=== PATIENT | female | born 1960 | race African-American/Black ===

== ENCOUNTER → 2016-11-04 | Outpatient (CLI) | payer MEDICARE ==
[2015-11-29 15:40] VITALS: BP 101/58
[~2016-11-04] MED LIST: AMIT25TA PO; AMLO10TA2 PO; AMLO10TA4 PO; ATOR20TA58 PO; BUPIVACAINE MPF 0.25% 10 ML VIAL. ONE; CA C1TAB63 PO; CHOL500021 PO; DIPH25CA58 PO; EPIN0.3A4 IJ; ESOM20CA PO; ESTR2TAB PO; GABA-586 PO; GABA-587 PO; HYDR-2666 PO; HYDR50TA PO; LIDO700A4 TP; METH750T2 PO; METO25TA9 PO; OLME40TA PO; OMEP20CA9 PO; OXYC-323 PO; PIRO20CA2 PO; RANI75TA95 PO; SUCR1TAB29 PO; TRAM50TA PO; [UNRECOGNIZED DRUG - REMARK]; methylPREDNISolone ACETATE 40 MG/ML VIAL. ONE
--- NOTE | 2016-11-04 13:33 | PAIN ---
DATE OF SERVICE: 11/04/2016 PROGRESS NOTE FOR PAIN CLINIC DIAGNOSES: 1. Lumbar radiculopathy with post-lumbar laminectomy syndrome. 2. Myofascial pain. HISTORY OF PRESENT ILLNESS: The patient is a 56-year-old female who returns for followup status post spinal cord stimulator placement over a year ago. The patient was last seen in 11/2015. We did a revision on her stimulator generator pocket, which she was doing very well with that, still reports she is getting good stimulation in the low back and legs from the stimulator, but the pain in the pocket, now it is becoming more noticeable and the generator is becoming more mobile. Her chief complaint is that is stinging and poking in the low back and also some significant pain in the bilateral lower back with all activity, standing and walking, change in positions has very tight, very firm, very spastic in her low back. The patient is a burning, aching sensation, rates as 6 on a scale of 10. The patient has lost another 14 pounds since we have seen her last and feels that this is contributing to the mobility pocket. The patient reports the pain is burning and aching in the low back; however, better with some massage therapy that her has been helping her with, but the pain returns, fairly quickly. She has had no formal therapy at this time. She has been doing some stretching, strengthening on her own. The patient's past medical history was reviewed as was her current medication list and updated. PHYSICAL EXAMINATION: VITAL SIGNS: The patient's blood pressure 128/86, pulse 74, respirations 20, temperature 97.4 degrees Fahrenheit, height is 5 feet 5 inches, and weighs 197 pounds. GENERAL: The patient is awake, alert, oriented, appropriate, very pleasant demeanor. HEENT: Head shows normocephalic, atraumatic. Extraocular movements are intact and symmetrical. Oral cavity shows mucous membranes moist and pink. Dentition is intact. NECK: Shows anterior throat supple without palpable lymphadenopathy noted. Swallow reflex is symmetrical. Neck shows full rotation of motion of the cervical spine without difficulty or tenderness. CHEST: Shows normal on inspection. Breath sounds clear to auscultation bilaterally. HEART: Shows S1 and S2 clear. ABDOMEN: Soft, nontender, nondistended. No palpable organomegaly is noted. No rebound or guarding demonstrated. BACK: The patient's back shows spine grossly midline. Normal appearing thoracic kyphosis and lumbar lordotic curvature is slightly flattened and a well-healed surgical scar is noted in the lumbar distribution as well as over the right posterior gluteus, the musculature in the lumbar distribution is very tender throughout the upper, middle and lower distribution, very firm, very hard and indurated with palpation, although appears roughly symmetrical on inspection, is very tender with multiple areas of very firm rope-like musculature throughout the upper, middle and lower distribution of paraspinous muscles, also in the superior medial aspect of the gluteus very tender, more on the left than the right with rope-like musculature consistent with trigger point muscles in this region as well, very painful with palpation, but without specific radiation. The patient shows some limited rotation of motion in the low back secondary to pain and spasticity, also with flexion and extension somewhat limited as well secondary to pain in the musculature themselves. EXTREMITIES: Lower extremities showed deep tendon reflexes 1+ in the patellar and tendo calcaneus tendons are equal. Motor exam remains strong with dorsiflexion, extension, quadriceps and hamstring flexion is 5/5 and equal. Peripheral pulses are 2+ in the posterior tibial and dorsalis pedis pulses. No peripheral edema is noted. No clubbing, no cyanosis. Lower extremities are warm and dry to touch, equal in color and appearance. PLAN: 1. Options were discussed with the patient. The patient's old chart was reviewed as her current medication regimen updated. Current review of systems updated today as well. We will schedule patient for revision of her spinal cord stimulator generator pocket as it is quite mobile with palpation over this area and somewhat tender with moving the stimulator with sitting position as opposed to standing with some increased mobility, again secondary to her recent weight loss. 2. Discussed myofascial injections at the trigger point musculature in the bilateral lumbar paraspinous musculature throughout the upper, middle and lower distribution as well as the bilateral superior medial gluteus musculature as identified. The patient would like to proceed with this. Risks were discussed including but not limited to bleeding, infection, possibility of intravascular injection sequelae, spread of local anesthetic and numbness, side effects of steroid medication as well as poor results regarding pain control. The patient understands and wishes to proceed. The patient will be scheduled for revision of the spinal cord stimulator battery in the next few weeks. We will also send the patient for physical therapy for myofascial treatment of the lumbar spine and paraspinous musculature as well as the gluteus musculature with therapy as well as ultrasound, stretching and strengthening exercises and trigger point massage. This will be referred to local with physical therapy office that she has attended before near her home, near [place]. DIAGNOSES: Lumbar radiculopathy with post-lumbar laminectomy syndrome and myofascial pain. PROCEDURE: Trigger point injections, bilateral lumbar paraspinous musculature and bilateral gluteus musculature. Medications injected are 40 mg total Depo-Medrol, a total of 10 mL of 0.25% bupivacaine with negative aspiration with each injection site. Condition at discharge is stable. The patient tolerated procedure well, had no complications. TROY TERAN MD DR: IVETT/christine JOB#: [id number] / [id number]
== END ==
LOC: PNCL 09:23
PROVIDERS: ATTEND Anesthesiology
DX: M54.16 Radiculopathy, lumbar region (principal); M96.1 Postlaminectomy syndrome, not elsewhere classified; I10 Essential (primary) hypertension; E78.00 Pure hypercholesterolemia, unspecified; K63.5 Polyp of colon; H26.9 Unspecified cataract; F17.200 Nicotine dependence, unspecified, uncomplicated; M19.90 Unspecified osteoarthritis, unspecified site; Z72.89 Other problems related to lifestyle; Z90.710 Acquired absence of both cervix and uterus; Z98.51 Tubal ligation status
CPT/HCPCS: 20553; J1030; J3490

== ENCOUNTER 2016-11-27 10:55 | Day surgery (SDC) | payer MEDICARE ==
[~2016-11-27] VITALS: Ht 170.2 cm; Wt 89.4 kg
[~2016-11-27 10:55] MED LIST changes: +AMOX1TAB11 PO; +BACITRACIN 50,000 UNIT in IV NORMAL SALINE 500ML BAG 500 ML IRR ONE; +BACL10TA PO; -BUPIVACAINE MPF 0.25% 10 ML VIAL. ONE; +CLINDAMYCIN 600MG PREMIX 50 ML IV PRN; +DULO60CA6 PO; +FENTANYL PF 100 MCG/2 ML VIAL. IV PRN; +HYDROMORPHONE 2 MG/ML VIAL. IV PRN; +IV RINGERS,LACTATED 1000ML 1,000 ML IV SCH; +LIDOCAINE 1% 1 ML SYRINGE. ID PRN; +MELO-150 PO; +ONDA4TAB12 PO; +ONDANSETRON PF 4 MG/2 ML VIAL. IV PRN; +PROCHLORPERAZINE 10 MG/2 ML VIAL. IV PRN; -methylPREDNISolone ACETATE 40 MG/ML VIAL. ONE
[2016-11-27] MEDS ORDERED: LIDOCAINE 2% 100 MG/5 ML DISP.SYRIN. ONE (12:00)
[2016-11-27] MEDS ORDERED: PROPOFOL 20 ML IV ONE (12:00)
[2016-11-27] MEDS ORDERED: ONDANSETRON PF 4 MG/2 ML VIAL. ONE (12:01)
[2016-11-27] MEDS ORDERED: DEXAMETHASONE SOD PHOS 20 MG/5 ML VIAL. ONE (12:01)
[2016-11-27] MEDS ORDERED: FENTANYL PF 100 MCG/2 ML VIAL. ONE (12:01)
[2016-11-27] MEDS ORDERED: LIDOCAINE 1%/EPI 1:100,000 20 ML VIAL. ONE ×2 (12:24→12:25)
[2016-11-27] MEDS ORDERED: IOHEXOL 300 MG/ML 100ML VIAL. ONE (12:25)
[2016-11-27] MEDS ORDERED: MIDAZOLAM HCL 2 MG/2 ML VIAL. ONE (12:27)
[2016-11-27] MEDS ORDERED: ROCURONIUM 50 MG/5 ML VIAL. ONE (12:40)
[2016-11-27] MEDS ORDERED: GLYCOPYRROLATE 1 MG/5 ML VIAL. ONE (13:11)
[2016-11-27] MEDS ORDERED: NEOSTIGMINE METHYLSULFATE 5 MG/5 ML SYRINGE. ONE (13:11)
--- NOTE | 2016-11-27 13:48 | DISCH ---
DISCHARGE INSTRUCTIONS Condition on Discharge Condition on Discharge: Stable Activity After Discharge Activity Instructions for Disc: Activity as tolerated, Avoid exertion Bathing Instructions: Shower-keep dressing dry Lifting Instructions after Dis: No heavy lifting Driving Instructions after Dis: Do not drive today Weight Bearing Status after Di: As tolerated Diet after Discharge Diet after Discharge: Regular Wound Incision Care Wound/Incision Care: Reinforce dressing PRN Contacting the DREarl after DC Call your doctor for: Concerns you may have TROY TERAN MD Nov 27, 2016 13:48
[2016-11-27] MEDS: FENTANYL PF 100 MCG/2 ML VIAL. IV PRN ×4 (14:17→15:11)
[2016-11-27] MEDS ORDERED: OXYCODONE/APAP 5/325 TABLET. PO ONE (14:45)
[2016-11-27 15:25] VITALS: BP 168/69
--- NOTE | 2016-11-28 16:01 | OP ---
DATE OF SURGERY: 11/27/2016 PREOPERATIVE DIAGNOSES: 1. Lumbar laminectomy syndrome with chronic lumbar radiculopathy. 2. Spinal cord stimulator with migration of generator. POSTOPERATIVE DIAGNOSES: 1. Lumbar laminectomy syndrome with chronic lumbar radiculopathy. 2. Spinal cord stimulator with migration of generator. PROCEDURE: Revision of spinal cord stimulator generator and generator pocket. ANESTHESIA: General endotracheal. BLOOD LOSS: 5 mL. COMPLICATIONS: None. DESCRIPTION OF PROCEDURE: The patient was consented for revision of spinal cord stimulator generator pocket with risks discussed including, but not limited to bleeding, infection, possibility of poor positioning after surgery of the spinal cord stimulator generator, also continued discomfort in the pocket area as well as poor results overall concerning pain control and possible damage to the stimulator and stimulator wires itself. The patient understands and agrees. The patient was consented and taken to OR suite #9. General endotracheal anesthesia was induced and the patient was then placed in a prone position with pressure points padded and breath sounds clear to auscultation bilaterally. The patient sterilely prepped and draped over the right gluteus and low back bilaterally in the usual fashion. Drains were placed in the usual fashion. After 3 minutes of drying time for the prep, the site of the right posterior gluteus at the site of the stimulator generator pocket was then identified and using 1% lidocaine with 1:200,000 epinephrine, a transverse infiltration was begun subcutaneously in a transverse fashion superior to the previous surgical scar at the site of the stimulator pocket approximately 3 cm cephalad. At this time, using a 15 blade scalpel, incision was made to the area of anesthetized skin and subcutaneous tissue dissected down to the pocket to expose the spinal cord stimulator generator using both blunt and dull dissection, being careful not to damage the stimulator or the associated stimulator wires. The pocket was easily opened and the generator was expressed without difficulty. Sutures holding the generator in the superior aspect of the generator were cut at this time and removed. The generator was completely expressed from the pocket. Pocket was then examined. It should be in very good condition with appropriate fibrinous formation within the pocket itself. The patient's pocket was then extended superiorly approximately 5 cm from the previous superior margin or roof of the pocket with using blunt and dull dissection again being careful not to damage the spinal cord stimulator or generator wires. At this time, the generator was placed back in the pocket to evaluate its position in the new more cephalad positioning and found to be in good alignment and good position and attitude of the stimulator generator in this new region. Stimulator was then expressed once again removed. Sutures were placed 0 silk in the superior aspects of the new superior aspect of the roof of the pocket and sutured in place with the tails remaining. These were placed through the stimulator generator mounting holes on the superior aspect of it. The stimulator was then examined and found to be without damage. The pocket was inspected. There was very minimal local hemorrhage that was controlled with blunt pressure and bipolar cautery at 2 spots only. The pocket was then reexamined, irrigated with bacitracin irrigation x 3, reexamined with no local hemorrhage identified. At this time, the stimulator was placed back in the pocket with the wires coiled up posterior to it and more distal from the skin of the patient exposing the product labeled surface or outside area of the stimulator facing the skin. At this time, the previously placed sutures at the superior aspect of the pocket newly created were then threaded through the stimulator mounting bracket holes and sutured in place without difficulty. At this time, the pocket was then examined in the inferior aspects, once again irrigated with bacitracin irrigation x 3 and reexamined without any local hemorrhage or other abnormalities noted and the lower edge of the new pocket was then sutured from the distal and proximal edges of the pocket were sutured together to form a new base of the pocket for the new stimulator placement and this was performed with 3-0 silk sutures across the inferior aspect of the new pocket region for the stimulator as it was repositioned superiorly. At this time, the pocket was then closed over the stimulator with subcutaneous interrupted sutures of 2-0 Vicryl in interrupted fashion to close the fascia and then the skin was closed with a running suture of 3-0 Vicryl. The patient tolerated the procedure well, had no complications. Sterile bandages were applied. Steri-Strips and Mastisol as well as island dressing. The patient was transferred to the recovery room awake and in stable condition. TROY TERAN MD DR: IVETT/christine JOB#: [id number] / [id number]
== END 2016-11-27 16:27 | disposition home or self-care (01) ==
LOC: SURG 10:55
PROVIDERS: ATTEND Anesthesiology
DX: Z45.42 Encounter for adjustment and management of neurostimulator (principal); M96.1 Postlaminectomy syndrome, not elsewhere classified; M54.16 Radiculopathy, lumbar region
CPT/HCPCS: 63688; C1769; J1100; J2250; J2405; J2704; J2710; J3010; J3490; J7040; Q9967

== ENCOUNTER 2016-12-07 20:20 | Emergency (ER) | payer MEDICARE ==
[~2016-12-07 20:20] MED LIST changes: -BACITRACIN 50,000 UNIT in IV NORMAL SALINE 500ML BAG 500 ML IRR ONE; -CLINDAMYCIN 600MG PREMIX 50 ML IV PRN; -FENTANYL PF 100 MCG/2 ML VIAL. IV PRN; -HYDROMORPHONE 2 MG/ML VIAL. IV PRN; -IV RINGERS,LACTATED 1000ML 1,000 ML IV SCH; -LIDOCAINE 1% 1 ML SYRINGE. ID PRN; -ONDANSETRON PF 4 MG/2 ML VIAL. IV PRN; -PROCHLORPERAZINE 10 MG/2 ML VIAL. IV PRN
[2016-12-07 21:55] LABS: BASO # 0.1 x10^3/uL (0.0-0.2); BASO % 1 % (0-3); EOS % 2 % (0-3); HEMATOCRIT 38.6 % (36.0-47.0); HEMOGLOBIN 12.8 g/dL (12.0-15.5); LYMPH # 2.1 x10^3/uL (1.0-4.8); LYMPH % 29 % (24-48); MEAN CORPUSCULAR HEMOGLOBIN 29 pg (25-35); MEAN CORPUSCULAR HGB CONC 33 g/dL (31-37); MEAN CORPUSCULAR VOLUME 89 fL (79-100); MONO % 7 % (0-9); NEUT % 62 % (31-73); PLATELET COUNT 217 x10^3/uL (140-400); RED BLOOD COUNT 4.35 x10^6/uL (3.50-5.40); RED CELL DISTRIBUTION WIDTH 14.8 % (11.5-14.5); WHITE BLOOD COUNT 7.3 x10^3/uL (4.0-11.0)
[2016-12-07 22:05] LABS: OBC FLU VALID
[2016-12-07 22:08] LABS: CALCIUM 8.7 mg/dL (8.5-10.1); GFR 69.9; POTASSIUM 4.1 mmol/L (3.5-5.1)
[2016-12-07 22:14] LABS: ALBUMIN 2.9 g/dL (3.4-5.0); DIRECT BILIRUBIN 0.1 mg/dL (0.0-0.2); MAGNESIUM 1.8 mg/dL (1.8-2.4); TOTAL BILIRUBIN 0.4 mg/dL (0.2-1.0)
[2016-12-07 22:23] LABS: CKMB INDEX 0.6 % (0-4); CKMB MASS < 0.5 ng/mL (0.0-3.6); CREATINE KINASE 77 U/L (26-192)
--- NOTE | 2016-12-07 22:31 | PHYS DOC ---
Past Medical History Past Medical History: High Cholesterol, Hypertension, Other Additional Past Medical Histor: chronic pain Past Surgical History: Hysterectomy, Tubal ligation, Other Additional Past Surgical Histo: Bilat arm/wrist surgery,R)knee,endometriosis,3 back surgeries. stimulator Additional Information: VAPOR Alcohol Use: Rarely Drug Use: None Adult General Chief Complaint Chief Complaint: COUGH HPI HPI Patient is a 56 year old female who presents with right-sided chest pain that began at 1900 tonight. She reports recent shortness of breath with a nonproductive cough that began yesterday. She's had subjective fever and chills with nasal congestion. She denies sore throat, ear pain, abdominal pain, or swelling of the lower extremities. She began sweating when the chest pain started, however has been having subjective fever and chills over the last 2 days. The patient completed a 10 day course of amoxicillin on 11/30/16 for an upper respiratory infection, prescribed by her PCP. She has a history of hypertension and hyperlipidemia. She denies history of diabetes or CAD. She has a family history of CAD and her father. She did not receive a flu shot this year. She denies any known sick contacts. Her PCP is Etelvina Garsia APRN. Review of Systems Review of Systems Constitutional: Reports subjective fever and chills. Eyes: Denies change in visual acuity, redness, or eye pain. [] HENT: Denies ear pain or sore throat. Reports nasal congestion. Respiratory: Reports nonproductive cough and shortness of breath. Cardiovascular: Denies palpitations or edema. Reports right-sided chest pain. GI: Denies abdominal pain, nausea, vomiting, bloody stools or diarrhea. [] : Denies dysuria, hematuria or urinary frequency. [] Musculoskeletal: Denies back pain or joint pain. [] Integument: Denies rash or skin lesions. [] Neurologic: Denies headache, focal weakness or sensory changes. [] Endocrine: Denies polyuria or polydipsia. [] Psych: Denies anxiety or depression. [] All systems reviewed and negative unless otherwise stated in the HPI. Allergies Allergies Allergies Coded Allergies Type Severity Reaction Last Updated Verified Cephalexin Monohydrate Allergy Intermediate Itching 11/27/16 Yes Sulfa (Sulfonamide Antibiotics) Allergy Intermediate 11/27/16 Yes azithromycin Allergy Intermediate Hives 11/27/16 Yes codeine Allergy Intermediate Hives 11/27/16 Yes morphine Allergy Intermediate Hives 11/27/16 Yes aspirin Adverse Reaction Intermediate Nausea 11/27/16 Yes Physical Exam Physical Exam Constitutional: Well developed, well nourished, no acute distress, non-toxic appearance. [] HENT: Normocephalic, atraumatic, bilateral external ears normal, oropharynx moist, no oral exudates, nose normal. Bilateral TMs without erythema or bulging. No posterior pharyngeal erythema or tonsillar edema. Eyes: PERRLA, EOMI, conjunctiva normal, no discharge. [] Neck: Normal range of motion, no tenderness, supple, no stridor. [] Cardiovascular: Heart rate regular rhythm, no murmur [] Lungs & Thorax: Bilateral breath sounds clear to auscultation without wheezes, rales, or rhonchi. There is tenderness to palpation over the right anterior chest wall without crepitus. Skin: Warm, dry, no erythema, no rash. [] Extremities: No calf tenderness, no cyanosis, no clubbing, ROM intact, no edema. 2+ DP pulses bilaterally. Neurologic: Alert and oriented X 3, normal motor function, normal sensory function, no focal deficits noted. [] Psychologic: Affect normal, judgement normal, mood normal. [] Current Patient Data Vital Signs Vital Signs Date Time Temp Pulse Resp B/P Pulse Ox O2 Delivery O2 Flow Rate FiO2 12/07/16 23:44 84 20 115/81 94 Room Air 12/07/16 20:50 97.5 97.5 Lab Values Laboratory Tests Test 12/07/16 21:38 12/07/16 21:40 Influenza Type A Antigen Negative (NEGATIVE) Influenza Type B Antigen Negative (NEGATIVE) White Blood Count 7.3x10^3/uL (4.0-11.0) Red Blood Count 4.35x10^6/uL (3.50-5.40) Hemoglobin 12.8g/dL (12.0-15.5) Hematocrit 38.6% (36.0-47.0) Mean Corpuscular Volume 89fL (79-100) Mean Corpuscular Hemoglobin 29pg (25-35) Mean Corpuscular Hemoglobin Concent 33g/dL (31-37) Red Cell Distribution Width 14.8% (11.5-14.5) H Platelet Count 217x10^3/uL (140-400) Neutrophils (%) (Auto) 62% (31-73) Lymphocytes (%) (Auto) 29% (24-48) Monocytes (%) (Auto) 7% (0-9) Eosinophils (%) (Auto) 2% (0-3) Basophils (%) (Auto) 1% (0-3) Neutrophils # (Auto) 4.5x10^3uL (1.8-7.7) Lymphocytes # (Auto) 2.1x10^3/uL (1.0-4.8) Monocytes # (Auto) 0.5x10^3/uL (0.0-1.1) Eosinophils # (Auto) 0.2x10^3/uL (0.0-0.7) Basophils # (Auto) 0.1x10^3/uL (0.0-0.2) Sodium Level 144mmol/L (136-145) Potassium Level 4.1mmol/L (3.5-5.1) Chloride Level 107mmol/L (98-107) Carbon Dioxide Level 27mmol/L (21-32) Anion Gap 10 (6-14) Blood Urea Nitrogen 11mg/dL (7-20) Creatinine 1.0mg/dL (0.6-1.0) Estimated GFR (Cockcroft-Gault) 69.9 Glucose Level 123mg/dL (70-99) H Calcium Level 8.7mg/dL (8.5-10.1) Magnesium Level 1.8mg/dL (1.8-2.4) Total Bilirubin 0.4mg/dL (0.2-1.0) Direct Bilirubin 0.1mg/dL (0.0-0.2) Aspartate Amino Transferase (AST) 13U/L (15-37) L Alanine Aminotransferase (ALT) 14U/L (14-59) Alkaline Phosphatase 119U/L (46-116) H Creatine Kinase 77U/L (26-192) Creatine Kinase MB (Mass) < 0.5ng/mL (0.0-3.6) Creatine Kinase MB Relative Index 0.6% (0-4) Troponin I Quantitative < 0.017ng/mL (0.000-0.055) UJ-Hgm-F-Type Natriuretic Peptide 47pg/mL (0-124) Total Protein 7.0g/dL (6.4-8.2) Albumin 2.9g/dL (3.4-5.0) L Laboratory Tests 12/07/16 21:40 Laboratory Tests 12/07/16 21:40 EKG EKG EKG at 2135. Heart rate 82 bpm. Sinus rhythm without acute ischemic changes or STEMI, as interpreted by Dr. Lundy. Radiology/Procedures Radiology/Procedures Portable chest x-ray reviewed and interpreted by myself with Dr. Lundy. There are no infiltrates. Course & Med Decision Making Course & Med Decision Making Pertinent Labs and Imaging studies reviewed. (See chart for details) Patient presents with right-sided chest pain with shortness of breath and upper respiratory symptoms. On exam, her lungs are clear without respiratory distress. There is chest wall tenderness in the area of her reported pain. EKG is nonischemic. Chest x-ray does not show any infiltrates. Troponin is negative. Influenza test is negative. There are no other significant laboratory abnormalities. I discussed the results with the patient and her significant other. Her symptoms appear to be related to her cough and upper respiratory symptoms, as opposed to cardiac in nature. She is discharged home in stable condition with prescription for prednisone and albuterol inhaler. Patient is instructed to follow-up with her PCP in the next 2-3 days, sooner if she has any concerns. Strict return precautions regarding chest pain were discussed with the patient. She verbalizes understanding and agrees with plan. Dragon Disclaimer Dragon Disclaimer This electronic medical record was generated, in whole or in part, using a voice recognition dictation system. Departure Departure Impression: Primary Impression: Atypical chest pain Additional Impression: Bronchitis Disposition: 01 HOME, SELF-CARE Condition: STABLE Referrals: ETELVINA GARSIA APRN (PCP) Patient Instructions: Acute Bronchitis, [id number], Chest Pain (Nonspecific) , [id number] Additional Instructions: You were seen today for cough, shortness breath, and chest pain. Your EKG was normal. Your chest x-ray does not show pneumonia. There were no concerning lab abnormalities. Please complete all the prescribed steroids. Please use the prescribed inhaler as needed for cough or shortness of breath. Do not use more often than directed. Please follow-up with your primary care provider in the next 2-3 days, sooner if concerns. Return to the emergency department if you have increase or change in your chest pain, shortness of breath, sweating with the pain, or other new or concerning symptoms. Scripts Albuterol Sulfate (Proair Hfa Inhaler)8.5 Gm Hfa.aer.ad1 Puff INH Q4HRS PRN SHORTNESS OF BREATH #1 INHALER Prov:JOSE ROBERTO GARCIA 12/07/16 Prednisone 20 Mg [id number] Mg PO DAILY 5 Days Prov:JOSE ROBERTO GARCIA 12/07/16 Problem Qualifiers JOSE ROBERTO GARCIA Dec 07, 2016 22:30
[2016-12-07] MEDS ORDERED: PRED20TA PO (23:27)
[2016-12-07] MEDS ORDERED: PROAIR HFA8.5 GM INH (23:27)
[2016-12-07 23:44] VITALS: BP 115/81
--- NOTE | 2016-12-08 06:42 | EKG ---
[facility] [address] [place] [address] Test Date: 2016-12-07 Test Time: 21:35:14 Pat Name: REGINO LUCIO Department: Room: Gender: F Warehouse Clerk: : [id number] Requested By: JOSE ROBERTO GARCIA Order Number: [id number] Reading MD: Measurements Intervals [place] Rate: 82 P: 22 MN: 180 QRS: -3 QRSD: 80 T: 20 QT: 366 QTc: 431 Interpretive Statements SINUS RHYTHM LEFTWARD AXIS OTHERWISE NORMAL ECG RI6.01 No previous ECG available for comparison
--- NOTE | 2016-12-08 08:49 | RAD ---
Portable chest, 12/07/2016: History: Right-sided chest pain, shortness of breath There are radiopacities projected over the thoracic spinal canal canal compatible with spinal stimulator leads. The heart size and pulmonary vascularity are normal. No pulmonary infiltrates are seen. There is no evidence of pleural fluid. IMPRESSION: No acute cardiopulmonary abnormality is detected.
== END 2016-12-07 23:45 | disposition home or self-care (01) ==
LOC: ER 20:20
DX: J40 Bronchitis, not specified as acute or chronic (principal); R07.89 Other chest pain; E78.00 Pure hypercholesterolemia, unspecified; G89.29 Other chronic pain; I10 Essential (primary) hypertension; Z90.710 Acquired absence of both cervix and uterus; Z98.51 Tubal ligation status; Z98.890 Other specified postprocedural states; Z88.5 Allergy status to narcotic agent; Z88.2 Allergy status to sulfonamides; Z88.1 Allergy status to other antibiotic agents; Z88.6 Allergy status to analgesic agent; Z88.8 Allergy status to other drugs, medicaments and biological substances
CPT/HCPCS: 36415; 71010; 80048; 80076; 82553; 83735; 83880; 84484; 85027; 87804; 93005; 99285-25

== ENCOUNTER → 2016-12-08 | Outpatient (CLI) | payer MEDICARE ==
[2016-12-07 23:44] VITALS: BP 115/81
[~2016-12-08] MED LIST changes: +PRED20TA PO; +PROAIR HFA8.5 GM INH
--- NOTE | 2016-12-09 07:06 | PAIN ---
DATE OF SERVICE: 12/08/2016 PROGRESS NOTE FOR PAIN CLINIC DIAGNOSES: 1. Lumbar radiculopathy with post-lumbar laminectomy syndrome. 2. Myofascial pain. HISTORY OF PRESENT ILLNESS: The patient is 56-year-old female who returns for followup status post revision of the spinal cord stimulator generator pocket on 11/27/2016. The patient reports she is doing very well, still sore from the surgery, but the placement of it in higher level in the area of the pocket revision is much more comfortable. The patient reports she also has acute bronchitis that has flared up. She is using inhaler and has some laryngitis as well. Otherwise, feeling fairly well. No fevers or other concerns. Some pain with the area of the surgical site, but otherwise doing well. The patient reports good and appropriate stimulation of her stimulator, persistent after the revision of the stimulator generator pocket. The patient reports her pain is a 4 on a scale of 10. Reports no new motor or sensory deficits or other complaints. PHYSICAL EXAMINATION: VITAL SIGNS: The patient's blood pressure 133/90, pulse 87, respirations 18, temperature 97.9 degrees Fahrenheit, weight is 196 pounds. GENERAL: The patient is awake, alert, oriented, appropriate, very pleasant demeanor. HEENT: Head shows normocephalic, atraumatic. Extraocular movements are intact and symmetrical. Oral cavity shows mucous membranes moist and pink. Dentition is intact. NECK: Shows anterior throat supple without palpable lymphadenopathy noted. Swallow reflex is symmetrical. CHEST: Shows normal on inspection. Breath sounds clear to auscultation bilaterally. HEART: Shows S1 and S2 clear. ABDOMEN: Soft, nontender, nondistended. No palpable organomegaly is noted. BACK: Shows spine grossly midline. Well-healed surgical scar is noted. Lumbar paraspinous muscle shows some very mild tenderness with palpation. The patient's right gluteus shows a well-healed surgical scar with Steri-Strips still in place. Wound is clean and dry, no erythema, no tenderness, no radiation of pain. The pocket shows supple without fluid or fluctuance and without radiation with palpation. Options were discussed with the patient. The patient's old chart was reviewed as her current medication regimen updated. Current review of systems updated today as well and we will have her keep the wound open to air as much as possible at this time with some gauze and tape. The patient's was shown how to do this as well as he is familiar with wound care and has been helping her at home with this. I also recommended that the patient increase her activity as tolerated, maintenance of the stimulator and keep the area as dry as possible, showering with light water contact is okay, but not soaking in the tub until the Steri-Strips have completely come off. The patient will follow up in approximately 4 weeks for a recheck at that time or sooner if necessary. TROY TERAN MD DR: IVETT/christine JOB#: [id number] / [id number]
== END | disposition home or self-care (01) ==
LOC: PNCL 14:24
PROVIDERS: ATTEND Anesthesiology
DX: M54.16 Radiculopathy, lumbar region (principal); M96.1 Postlaminectomy syndrome, not elsewhere classified; M79.1 Myalgia
CPT/HCPCS: G0463

== ENCOUNTER → 2017-04-23 | Outpatient (CLI) | payer MEDICARE ==
[~2017-04-23] MED LIST changes: +BUPIVACAINE MPF 0.25% 10 ML VIAL. ONE; -EPIN0.3A4 IJ; +EPIPEN 2-P0.3 MG/0.3 IJ; -HYDR-2666 PO; +HYDR-2758 PO; -MELO-150 PO; +MELO15TA23 PO; -OLME40TA PO; +OLME40TA12 PO; -SUCR1TAB29 PO; +SUCR1TAB35 PO; +methylPREDNISolone ACETATE 40 MG/ML VIAL. ONE
== END | disposition home or self-care (01) ==
LOC: PNCL 11:29
PROVIDERS: ATTEND Anesthesiology
DX: M79.1 Myalgia (principal); Z86.69 Personal history of other diseases of the nervous system and sense organs; E78.00 Pure hypercholesterolemia, unspecified; I10 Essential (primary) hypertension; K21.9 Gastro-esophageal reflux disease without esophagitis; E66.9 Obesity, unspecified; Z68.43 Body mass index [BMI] 50.0-59.9, adult; Z98.51 Tubal ligation status; Z90.710 Acquired absence of both cervix and uterus; M19.90 Unspecified osteoarthritis, unspecified site; F17.200 Nicotine dependence, unspecified, uncomplicated; Z72.0 Tobacco use; Z87.39 Personal history of other diseases of the musculoskeletal system and connective tissue; Z86.14 Personal history of Methicillin resistant Staphylococcus aureus infection; Z88.6 Allergy status to analgesic agent; Z88.1 Allergy status to other antibiotic agents; Z88.2 Allergy status to sulfonamides; Z79.82 Long term (current) use of aspirin
CPT/HCPCS: 20553; J1030; J3490

== ENCOUNTER → 2017-04-27 | Outpatient (CLI) | payer MEDICARE ==
[~2017-04-27] MED LIST changes: -BUPIVACAINE MPF 0.25% 10 ML VIAL. ONE; -methylPREDNISolone ACETATE 40 MG/ML VIAL. ONE
--- NOTE | 2017-04-27 12:06 | RAD ---
CT lumbar spine without contrast 04/27/2017 at 1049 hours Indication: Low back pain for years, worse in the past 6 months. Comparison: CT abdomen/pelvis 11/29/2015, CT lumbar spine 09/29/2013 Technique: Multiple axial CT images of the lumbar spine were obtained without intravenous contrast. Coronal and sagittal reformats are provided. Findings: Postoperative changes from posterior spinal fusion at L3-L4 with compared posterior pedicle screws and intervertebral disc prosthesis. Minimal osseous bridging is noted laterally and posteriorly at L3-L4. There is no periprosthetic lucency or fracture of the prosthesis. Spinal nerve stimulator is identified entering the spinal canal at the L1 vertebral level. There is no acute fracture. There is minimal retrolisthesis of L5 on S1. Spinal canal is patent without significant stenosis. Mild facet arthropathy is noted at L5-S1. No significant osseous neural foraminal stenosis. Visualized retroperitoneal structures are normal. Minimal atherosclerosis of the abdominal aorta is present. There is increased sclerosis along the iliac portions of the sacroiliac joints. Impression: Posterior spinal fusion identified at L3-L4 without evidence for hardware failure. Minimal osseous bridging is noted along the lateral and posterior aspect of the L3-L4 endplates. No significant neuroforaminal or spinal canal stenosis. PQRS Compliance Statement: One or more of the following individualized dose reduction techniques were utilized for this examination: 1. Automated exposure control 2. Adjustment of the mA and/or kV according to patient size 3. Use of iterative reconstruction technique
== END | disposition home or self-care (01) ==
LOC: CT 10:40
PROVIDERS: ATTEND Anesthesiology
DX: M54.5 Low back pain (principal); Z98.42 Cataract extraction status, left eye; Z86.69 Personal history of other diseases of the nervous system and sense organs; E78.00 Pure hypercholesterolemia, unspecified; I10 Essential (primary) hypertension; E66.9 Obesity, unspecified; Z68.43 Body mass index [BMI] 50.0-59.9, adult; K21.9 Gastro-esophageal reflux disease without esophagitis; Z98.51 Tubal ligation status; Z90.710 Acquired absence of both cervix and uterus; Z87.39 Personal history of other diseases of the musculoskeletal system and connective tissue; M19.90 Unspecified osteoarthritis, unspecified site; Z86.14 Personal history of Methicillin resistant Staphylococcus aureus infection; Z88.6 Allergy status to analgesic agent; Z88.2 Allergy status to sulfonamides; Z88.8 Allergy status to other drugs, medicaments and biological substances; Z79.82 Long term (current) use of aspirin
CPT/HCPCS: 72131

== ENCOUNTER → 2017-05-10 | Outpatient (CLI) | payer MEDICARE ==
[~2017-05-10] MED LIST changes: +BUPIVACAINE MPF 0.25% 10 ML VIAL. ONE; +methylPREDNISolone ACETATE 40 MG/ML VIAL. ONE
--- NOTE | 2017-05-10 19:06 | PAIN ---
DATE OF SERVICE: 05/10/2017 PROGRESS NOTE FOR PAIN CLINIC DIAGNOSES: 1. Lumbar radiculopathy with lumbar post-laminectomy syndrome. 2. Myofascial pain. HISTORY OF PRESENT ILLNESS: The patient is a 57-year-old female who returns for followup status post recent spinal cord stimulator revision on 12/08/2016. The patient did very well with the pocket revision; however, has been waiting for reprogramming secondary to intensity of the stimulation, ____ she needed exactly is in the right locations by her report in the back and legs, but it feels the intensity could be increased and she is awaiting her rep to contact her for reprogramming. The patient reports otherwise significant pain, increasing after trigger point injections, about 50% improvement now, about 25-30% improvement after her last injections on 04/23/2017. The patient reports she did well initially, pain returning now in the mid back, low back with significant myofascial pain, tender, burning, deep stinging and stabbing pain, rated as a 9 on a scale of 10 versus currently a 7 on a scale of 10. Today, the patient reports it is cramping, sharp, tight, constant, and severe in the mid back, low back bilaterally and is worse with walking, standing, change in positions, awakens her from sleep occasionally. She is only sleeping about 2-3 hours at night because of the pain. The patient reports no new motor or sensory deficits; however, no new bowel or bladder incontinence or other complaints. PHYSICAL EXAMINATION: VITAL SIGNS: Blood pressure 138/89, pulse 78, respirations are 18, temperature 97.5 degrees Fahrenheit, height is 5 feet 5 inches, and weighs 197 pounds. GENERAL: The patient is awake, alert, oriented, appropriate, very pleasant demeanor. The patient accompanied by her spouse. HEENT: Shows normocephalic, atraumatic. Extraocular movements are intact and symmetrical. Oral cavity, mucous membranes are moist and pink. Dentition is intact. NECK: Shows anterior throat supple without palpable lymphadenopathy noted. Swallow reflex is symmetrical. CHEST: Shows normal on inspection. Breath sounds clear to auscultation bilaterally. HEART: Shows S1 and S2 clear. No murmurs auscultated. ABDOMEN: Obese, soft, nontender, nondistended. No palpable organomegaly is noted. No rebound or guarding demonstrated. BACK: Shows spine grossly midline, well-healed surgical scar is noted in the lumbar distribution with slight increase in thoracic kyphosis, but slight flattening of lumbar lordotic curvature as well. The paraspinous musculature shows significant tenderness and very firm rope-like musculature throughout the mid and lower thoracic distribution as well as the upper, middle and lower distribution of the lumbar paraspinous musculature is very tender without significant radiation, but with significant firm rope-like musculature consistent with trigger point areas of muscle and very tender once again especially in the lower lumbar distribution of paraspinous muscles, but without asymmetry, without atrophy, hypertrophy. No tenderness over the sacrum or sacroiliac regions. The patient shows a good rotation motion of the lumbar spine with some limitation in forward flexion, but not secondary to pain. Lower extremities showed deep tendon reflexes 1+ in the patellar and tendo calcaneus tendons. Motor exam is strong with 5/5 dorsiflexion, extension, quadriceps and hamstring flexion and are equal. Peripheral pulses are 1+ posterior tibial and dorsalis pedis pulses. No peripheral edema is noted. Options were discussed with the patient and the patient's old chart was reviewed as her current medication regimen updated. Current review of systems updated today as well. We will proceed with trigger point injections of the thoracic and lumbar paraspinous musculature bilaterally. Risks were again discussed including, but not limited to bleeding, infection, possibility of intravascular injection sequelae, spread of local anesthetic and numbness, side effects of steroid medication and poor results regarding pain control. The patient understands and wishes to proceed. The patient will return to clinic in approximately 2 weeks for followup, was counseled on return ____. Also, we will contact the patient's spinal cord stimulator rep for reprogramming as discussed. The patient will follow up as scheduled. TROY TERAN MD DR: IVETT/christine JOB#: [id number] / [id number]
== END | disposition home or self-care (01) ==
LOC: PNCL 14:51
PROVIDERS: ATTEND Anesthesiology
DX: M79.1 Myalgia (principal); M54.16 Radiculopathy, lumbar region; M96.1 Postlaminectomy syndrome, not elsewhere classified; E78.00 Pure hypercholesterolemia, unspecified; I10 Essential (primary) hypertension; E66.9 Obesity, unspecified; Z68.43 Body mass index [BMI] 50.0-59.9, adult; M19.90 Unspecified osteoarthritis, unspecified site; F17.200 Nicotine dependence, unspecified, uncomplicated; Z86.69 Personal history of other diseases of the nervous system and sense organs; Z90.710 Acquired absence of both cervix and uterus; Z87.39 Personal history of other diseases of the musculoskeletal system and connective tissue; Z72.0 Tobacco use; Z86.14 Personal history of Methicillin resistant Staphylococcus aureus infection; Z88.1 Allergy status to other antibiotic agents; Z88.2 Allergy status to sulfonamides; Z88.6 Allergy status to analgesic agent; Z79.82 Long term (current) use of aspirin
CPT/HCPCS: 20553; J1030; J3490

== ENCOUNTER → 2017-07-12 | Outpatient (CLI) | payer MEDICARE ==
[~2017-07-12] MED LIST changes: +IOHEXOL 180 MG/ML 10 ML VIAL. ONE; +METO-239 PO; -METO25TA9 PO; +methylPREDNISolone ACETATE 80 MG/ML VIAL. ONE
--- NOTE | 2017-07-12 15:54 | PAIN ---
DATE OF SERVICE: 07/12/2017 DIAGNOSES: 1. Lumbar radiculopathy with post-lumbar laminectomy syndrome and spinal cord stimulator. 2. Myofascial pain. HISTORY OF PRESENT ILLNESS: The patient is a 57-year-old female who returns for followup status post spinal cord stimulator placement, also recent trigger point injections on 05/10/2017 and the patient reports she did very well with these with about an 80% improvement initially, now is down to about 40% improvement overall in the low back, posterior gluteus, posterior hips and the mid low back as well. The patient reports no new motor or sensory deficits. She has had her spinal cord stimulator recently reprogrammed and reports that the stimulation is good, but she turns it up high enough it causes significant headache on the right side at the base of the skull. The patient reports with turning the stimulation down even slightly, the headache goes away. The patient is unsure what to think of this. The patient reports otherwise doing fairly well. Pain is a 10 on a scale of 10 at its worst, is 9 on average, is 7 currently across the low back and the bilateral hips, again well controlled with spinal cord stimulator, but at higher levels, it is causing headaches. The patient reports the pain is cramping, aching, sharp, constant, severe in the mid low back and the bilateral hips. The patient reports no new motor or sensory deficits, no new bowel or bladder incontinence. The patient reports it awakens her from sleep occasionally, not every night. She sleeps about 6 hours at a time, but she can usually get out of bed or change positions to decrease the pain or take pain medication. PHYSICAL EXAMINATION: VITAL SIGNS: Today, the patient's blood pressure is 162/101, pulse 91, respirations 18, temperature 97.6 degrees Fahrenheit, height is 5 feet 4 inches, weighs 196 pounds. GENERAL: The patient is awake, alert, oriented, appropriate, very pleasant demeanor. The patient accompanied by her . HEENT: Head shows normocephalic, atraumatic. Extraocular movements are intact and symmetrical. Oral cavity shows mucous membranes moist and pink. Dentition is intact. NECK: Shows anterior throat supple without palpable lymphadenopathy noted. Swallow reflex is symmetrical. CHEST: Shows normal on inspection. Breath sounds are clear to auscultation bilaterally. HEART: Shows S1 and S2 clear. ABDOMEN: Soft, nontender, nondistended. No palpable organomegaly. No rebound or guarding demonstrated. BACK: The patient's back shows spine grossly in midline. A well-healed surgical scar is noted with some flattening of lumbar lordotic curvature. The patient's lumbar paraspinous muscle shows significant tenderness and rope-like musculature throughout the upper, middle and lower distribution of paraspinous muscles, also in the low thoracic paraspinous muscles, more on the right than the left without obvious atrophy or hypertrophy with inspection but very firm rope-like musculature consistent with trigger point areas in the inferior thoracic as well as the lumbar paraspinous muscles with palpation over the gluteus, so significant tenderness more again on the right than the left in the superior aspect of the lateral and medial gluteus posteriorly, but only the superior aspect. The left side shows some tenderness in the medial superior gluteus only, but very firm rope-like musculature and both gluteus muscles very tender, but without significant radiation. The patient's lower extremities showed deep tendon reflexes 1+ in the patellar and tendo calcaneus tendons. Motor exam is strong with 5/5 dorsiflexion, extension, quadriceps and hamstring flexion. Peripheral pulses are 1+ posterior tibial bilaterally. No peripheral edema is noted. Options were discussed with the patient. The patient's old chart was reviewed as her current medication regimen and updated. Current review of systems is updated today as well and we will proceed with trigger point injections of the thoracic paraspinous musculature bilaterally, lumbar paraspinous musculature bilaterally and gluteus musculature bilaterally. Risks were again discussed including, but not limited to bleeding, infection, possibility of intravascular injection, sequelae, spread of local anesthetic and numbness, side effects of steroid medication and poor results regarding pain control. The patient understands and wishes to proceed. The patient will return to clinic in approximately 4 weeks for followup. She was counseled as to return appointment, activity level and side effects to be aware of. DIAGNOSIS: Myofascial pain. PROCEDURE: Trigger point injections of bilateral thoracic paraspinous musculature, bilateral lumbar paraspinous musculature and bilateral gluteus musculature under sterile prep and drape using local anesthetic. MEDICATION INJECTED: A total of 8 mL of 0.25% bupivacaine as well as 40 mg Depo-Medrol. CONDITION AT DISCHARGE: Stable. The patient tolerated procedure well, had no complications. TROY TERAN MD DR: IVETT/christine JOB#: [id number] / [id number]
== END | disposition home or self-care (01) ==
LOC: PNCL 10:57
PROVIDERS: ATTEND Anesthesiology
DX: M79.1 Myalgia (principal); M54.16 Radiculopathy, lumbar region; M96.1 Postlaminectomy syndrome, not elsewhere classified; Z86.69 Personal history of other diseases of the nervous system and sense organs; E78.00 Pure hypercholesterolemia, unspecified; I10 Essential (primary) hypertension; E66.9 Obesity, unspecified; Z68.43 Body mass index [BMI] 50.0-59.9, adult; M17.11 Unilateral primary osteoarthritis, right knee; F17.200 Nicotine dependence, unspecified, uncomplicated; Z90.710 Acquired absence of both cervix and uterus; Z98.51 Tubal ligation status; Z72.0 Tobacco use; Z86.14 Personal history of Methicillin resistant Staphylococcus aureus infection; Z87.39 Personal history of other diseases of the musculoskeletal system and connective tissue; Z88.6 Allergy status to analgesic agent; Z88.2 Allergy status to sulfonamides; Z88.8 Allergy status to other drugs, medicaments and biological substances
CPT/HCPCS: 20553; J1030; J3490; J1040

== ENCOUNTER → 2017-10-06 | Outpatient (CLI) | payer MEDICARE ==
[2017-08-13 11:00] VITALS: BP 170/89
[~2017-10-06] MED LIST changes: +PREG150C PO; -methylPREDNISolone ACETATE 40 MG/ML VIAL. ONE
--- NOTE | 2017-10-06 11:23 | PN ---
DATE: 10/06/2017 PROGRESS NOTE FOR PAIN CLINIC DIAGNOSES: 1. Lumbar radiculopathy with post-lumbar laminectomy syndrome and spinal cord stimulator therapy. 2. Myofascial pain. 3. Right shoulder joint pain with osteoarthritis, right shoulder joint. HISTORY OF PRESENT ILLNESS: The patient is a 57-year-old female who returns to followup status post spinal cord stimulator pocket revision and recent trigger point injections in June of this year. The patient did very well with these in the low back. The patient has had her stimulator reprogrammed to a non-paresthesia mode and she likes this much better, reports about 70% improvement with the pain with the stimulator. Still taking some pain medication, but doing much better. Her chief complaint today is her right shoulder, with some significant pain with abduction past about 90 degrees. She reports it is a 10 on the scale of 10, it is worse; 8 on average; 6 at its least and is a 6 today. The patient reports it is radiating to the lateral and posterior aspect of the shoulder as well as superior shoulder and even the base of the neck at times. It is sharp, shooting, stabbing, becoming more severe and more noticeable. The patient reports it awakens her from sleep occasionally, but not every night. She needs to reposition or take pain medication to get the pain to decrease. She had some weakness in the arm with the pain and also with carrying her purse on her right shoulder or carrying items at her side with her arm extended. The patient reports no new motor or sensory deficits, no new bowel or bladder incontinence or other complaints. PHYSICAL EXAMINATION: VITAL SIGNS: Today, the patient's blood pressure is 132/81, pulse 79, respirations are 16 and temperature is 97.6 degrees Fahrenheit. Height is 5 foot 5 inches, weight is 206 pounds. GENERAL: The patient is awake, alert, oriented, appropriate, very pleasant demeanor. HEENT: Head shows normocephalic, atraumatic. Extraocular movements are intact and symmetrical. The patient wears eye glasses. Oral cavity, mucous membranes moist and pink. Dentition is intact. NECK: Shows anterior throat supple, without palpable lymphadenopathy noted. Swallow reflex symmetrical. CHEST: Normal on inspection. Breath sounds clear to auscultation bilaterally. HEART: Shows S1, S2 clear. No murmurs auscultated. ABDOMEN: Obese, soft, nontender and nondistended. No palpable organomegaly is noted. No rebound or guarding demonstrated. BACK: The patient's back shows spine grossly in the midline. Normal-appearing thoracic kyphosis and flattening lumbar lordotic curvature as well as well-healed surgical scars noted. Easily palpable spinal cord stimulator battery is noted on the right posterior gluteus. Posterior lumbar paraspinous muscle shows significant tenderness with palpation in the paraspinous muscles bilaterally, mostly in the superior gluteus and inferior lumbar paraspinous musculature, but without radiation. EXTREMITIES: The patient's upper extremities show deep tendon reflexes 2+ in the biceps and triceps tendons. Motor exam is strong with a security compliance engineer strength rated at 5/5, approximately 4/5 with bicep and tricep flexion on the right and 5/5 on the left. Palpation of the patient's shoulder shows significant tenderness over the acromioclavicular joint, both anteriorly and posteriorly; with abduction, it shows significant pain as well close to 90 degrees. The patient has difficulty and grimaces with moving the arm farther than this. Anterior and posterior rotation is full, though with both active and passive rotation. Left side shows normal rotation without difficulty. Lower extremities show deep tendon reflexes at 1+ in the patellar and tendo-calcaneus tendons. Motor exam is strong, with 5/5 dorsiflexion and extension. Peripheral pulses are 2+ radial and 1+ posterior tibial. No peripheral edema is noted. Options were discussed with the patient. The patient's old chart was reviewed as her current medication regimen updated. Current review of systems updated today as well. We will proceed with a right-sided acromioclavicular joint injection with fluoroscopic guidance. Risks were discussed, including but not limited to bleeding, infection, possibility of intravascular injection sequelae, spread of local anesthetic and numbness, side effects of steroid medication, exposure to fluoroscopy and poor results regarding pain control. The patient understands and wishes to proceed. The patient will return to the clinic in approximately 4 weeks for followup. She was counseled on return appointment, activity level and side effects to be aware of. Also discussed possible re-tuning of the patient's stimulator. The patient will contact [facility] medical lab technician for this if desired as well. TROY TERAN MD DR: IVETT/christine JOB#: [id number] / [id number]
== END | disposition home or self-care (01) ==
LOC: PNCL 08:29
PROVIDERS: ATTEND Anesthesiology
DX: M19.011 Primary osteoarthritis, right shoulder (principal); M54.16 Radiculopathy, lumbar region; M96.1 Postlaminectomy syndrome, not elsewhere classified; Z86.69 Personal history of other diseases of the nervous system and sense organs; E78.00 Pure hypercholesterolemia, unspecified; I10 Essential (primary) hypertension; E66.9 Obesity, unspecified; K21.9 Gastro-esophageal reflux disease without esophagitis; Z98.51 Tubal ligation status; Z90.710 Acquired absence of both cervix and uterus; Z72.89 Other problems related to lifestyle; F17.200 Nicotine dependence, unspecified, uncomplicated; Z86.14 Personal history of Methicillin resistant Staphylococcus aureus infection; Z88.6 Allergy status to analgesic agent; Z88.1 Allergy status to other antibiotic agents; Z88.2 Allergy status to sulfonamides; Z88.8 Allergy status to other drugs, medicaments and biological substances
CPT/HCPCS: 20605; 77002; J1040; J3490; 20600

== ENCOUNTER → 2017-11-01 | Outpatient (CLI) | payer MEDICARE ==
[~2017-11-01] MED LIST changes: -AMIT25TA PO; -AMLO10TA2 PO; -AMLO10TA4 PO; -AMOX1TAB11 PO; -ATOR20TA58 PO; -BACL10TA PO; +BUPIVACAINE MPF 0.25% 10 ML VIAL.; -BUPIVACAINE MPF 0.25% 10 ML VIAL. ONE; -CA C1TAB63 PO; -CHOL500021 PO; -DIPH25CA58 PO; -DULO60CA6 PO; -EPIPEN 2-P0.3 MG/0.3 IJ; -ESOM20CA PO; -ESTR2TAB PO; -GABA-586 PO; -GABA-587 PO; -HYDR-2758 PO; -HYDR50TA PO; +IOHEXOL 180 MG/ML 10 ML VIAL.; -IOHEXOL 180 MG/ML 10 ML VIAL. ONE; -LIDO700A4 TP; -MELO15TA23 PO; -METH750T2 PO; -METO-239 PO; -OLME40TA12 PO; -OMEP20CA9 PO; -ONDA4TAB12 PO; -OXYC-323 PO; -PIRO20CA2 PO; -PRED20TA PO; -PREG150C PO; -PROAIR HFA8.5 GM INH; -RANI75TA95 PO; -SUCR1TAB35 PO; -TRAM50TA PO; -[UNRECOGNIZED DRUG - REMARK]; +methylPREDNISolone ACETATE 80 MG/ML VIAL.; -methylPREDNISolone ACETATE 80 MG/ML VIAL. ONE
== END | disposition home or self-care (01) ==
LOC: PNCL 10:17
DX: M19.012 Primary osteoarthritis, left shoulder (principal); M19.011 Primary osteoarthritis, right shoulder; M96.1 Postlaminectomy syndrome, not elsewhere classified; M54.16 Radiculopathy, lumbar region; E78.00 Pure hypercholesterolemia, unspecified; E66.9 Obesity, unspecified; K21.9 Gastro-esophageal reflux disease without esophagitis; F17.200 Nicotine dependence, unspecified, uncomplicated; Z90.710 Acquired absence of both cervix and uterus; Z86.69 Personal history of other diseases of the nervous system and sense organs; Z98.51 Tubal ligation status; Z72.89 Other problems related to lifestyle; Z72.0 Tobacco use; Z86.14 Personal history of Methicillin resistant Staphylococcus aureus infection; Z88.6 Allergy status to analgesic agent; Z88.1 Allergy status to other antibiotic agents; Z88.2 Allergy status to sulfonamides; Z88.8 Allergy status to other drugs, medicaments and biological substances
CPT/HCPCS: 20600; 20605; 77002; J1040; J3490

== ENCOUNTER → 2017-11-11 | Outpatient (CLI) | payer MEDICARE ==
[~2017-11-11] MED LIST changes: -IOHEXOL 180 MG/ML 10 ML VIAL.; +methylPREDNISolone ACETATE 40 MG/ML VIAL.; -methylPREDNISolone ACETATE 80 MG/ML VIAL.
== END | disposition home or self-care (01) ==
LOC: PNCL 09:06
DX: M19.012 Primary osteoarthritis, left shoulder (principal); M19.011 Primary osteoarthritis, right shoulder; M54.16 Radiculopathy, lumbar region; M96.1 Postlaminectomy syndrome, not elsewhere classified; Z88.5 Allergy status to narcotic agent; Z88.6 Allergy status to analgesic agent; Z88.2 Allergy status to sulfonamides; E78.00 Pure hypercholesterolemia, unspecified; I10 Essential (primary) hypertension; Z90.710 Acquired absence of both cervix and uterus; E66.9 Obesity, unspecified; K21.9 Gastro-esophageal reflux disease without esophagitis; Z98.51 Tubal ligation status; Z90.721 Acquired absence of ovaries, unilateral; F10.99 Alcohol use, unspecified with unspecified alcohol-induced disorder; F17.210 Nicotine dependence, cigarettes, uncomplicated
CPT/HCPCS: 20553; J1030; J3490

== ENCOUNTER → 2017-11-24 | Outpatient (CLI) | payer MEDICARE | END | disposition home or self-care (01) | LOC: CT 10:21 | DX: M47.22 Other spondylosis with radiculopathy, cervical region (principal); M50.123 Cervical disc disorder at C6-C7 level with radiculopathy; E78.00 Pure hypercholesterolemia, unspecified; I10 Essential (primary) hypertension; K21.9 Gastro-esophageal reflux disease without esophagitis; F17.200 Nicotine dependence, unspecified, uncomplicated; Z86.14 Personal history of Methicillin resistant Staphylococcus aureus infection; Z86.69 Personal history of other diseases of the nervous system and sense organs; Z88.6 Allergy status to analgesic agent; Z98.51 Tubal ligation status; Z87.39 Personal history of other diseases of the musculoskeletal system and connective tissue; Z72.89 Other problems related to lifestyle; Z72.0 Tobacco use; Z88.1 Allergy status to other antibiotic agents; Z88.2 Allergy status to sulfonamides; Z88.8 Allergy status to other drugs, medicaments and biological substances | CPT/HCPCS: 72125 ==

== ENCOUNTER 2017-11-27 14:10 | Emergency (ER) | payer MEDICARE ==
[2017-11-27] MEDS: diazePAM 5 MG TABLET PO ×2 (15:37)
[2017-11-27] MEDS: fentaNYL PF VIAL 100 MCG/2 ML VIAL IM ×2 (15:38)
[2017-11-27] MEDS: DEXAMETHASONE SOD PHOS 20 MG/5 ML VIAL. IM ×2 (15:38)
== END 2017-11-27 16:00 | disposition home or self-care (01) ==
LOC: ER 14:10
DX: M54.12 Radiculopathy, cervical region (principal); G89.29 Other chronic pain; M54.5 Low back pain; M79.602 Pain in left arm; E78.00 Pure hypercholesterolemia, unspecified; I10 Essential (primary) hypertension; Z90.710 Acquired absence of both cervix and uterus; Z98.51 Tubal ligation status; Z98.890 Other specified postprocedural states; Z88.2 Allergy status to sulfonamides; Z88.1 Allergy status to other antibiotic agents; Z88.5 Allergy status to narcotic agent; Z88.6 Allergy status to analgesic agent
CPT/HCPCS: 96372; 99284-25; J1100; J3010

== ENCOUNTER → 2017-12-21 | Outpatient (CLI) | payer MEDICARE ==
[~2017-12-21] MED LIST changes: -BUPIVACAINE MPF 0.25% 10 ML VIAL.; +IOHEXOL 180 MG/ML 10 ML VIAL.; +methylPREDNISolone ACETATE 80 MG/ML VIAL.
== END | disposition home or self-care (01) ==
LOC: PNCL 08:33
DX: M50.123 Cervical disc disorder at C6-C7 level with radiculopathy (principal); M79.1 Myalgia; M96.1 Postlaminectomy syndrome, not elsewhere classified; M19.012 Primary osteoarthritis, left shoulder; M19.011 Primary osteoarthritis, right shoulder; Z79.899 Other long term (current) drug therapy; Z90.710 Acquired absence of both cervix and uterus; Z88.6 Allergy status to analgesic agent; Z88.5 Allergy status to narcotic agent; Z88.2 Allergy status to sulfonamides; Z88.1 Allergy status to other antibiotic agents; I10 Essential (primary) hypertension; M54.5 Low back pain; G89.29 Other chronic pain; Z98.890 Other specified postprocedural states; E78.00 Pure hypercholesterolemia, unspecified; Z98.51 Tubal ligation status; Z88.8 Allergy status to other drugs, medicaments and biological substances; K21.9 Gastro-esophageal reflux disease without esophagitis; Z86.14 Personal history of Methicillin resistant Staphylococcus aureus infection; Z90.721 Acquired absence of ovaries, unilateral; F17.210 Nicotine dependence, cigarettes, uncomplicated; E66.9 Obesity, unspecified
CPT/HCPCS: 62321; J1030; J1040; Q9965

== ENCOUNTER → 2018-01-04 | Outpatient (CLI) | payer MEDICARE | END | disposition home or self-care (01) | LOC: PNCL 08:34 | DX: M50.10 Cervical disc disorder with radiculopathy, unspecified cervical region (principal); M54.10 Radiculopathy, site unspecified; M96.1 Postlaminectomy syndrome, not elsewhere classified; E78.00 Pure hypercholesterolemia, unspecified; I10 Essential (primary) hypertension; E66.9 Obesity, unspecified; K21.9 Gastro-esophageal reflux disease without esophagitis; Z98.51 Tubal ligation status; Z90.710 Acquired absence of both cervix and uterus; Z90.721 Acquired absence of ovaries, unilateral; M19.90 Unspecified osteoarthritis, unspecified site; F10.99 Alcohol use, unspecified with unspecified alcohol-induced disorder; F17.210 Nicotine dependence, cigarettes, uncomplicated; Z88.5 Allergy status to narcotic agent; Z88.6 Allergy status to analgesic agent; Z88.1 Allergy status to other antibiotic agents; Z88.2 Allergy status to sulfonamides; Z88.8 Allergy status to other drugs, medicaments and biological substances | CPT/HCPCS: 62321; J1030; J1040; Q9965 ==

== ENCOUNTER → 2018-01-11 | Outpatient (CLI) | payer MEDICARE | LOC: CT 14:56 | DX: M50.11 Cervical disc disorder with radiculopathy, high cervical region (principal); M50.122 Cervical disc disorder at C5-C6 level with radiculopathy | CPT/HCPCS: 72125 ==

== ENCOUNTER 2018-02-16 00:32 | Emergency (ER) | payer MEDICARE ==
[2018-02-16] MEDS: KETOROLAC 60 MG/2 ML INJ. IM (01:41)
[2018-02-16] MEDS: ORPHENADRINE CITRATE 60 MG/2 ML VIAL. IM (01:43)
== END 2018-02-16 02:02 | disposition home or self-care (01) ==
LOC: ER 00:32
DX: M54.12 Radiculopathy, cervical region (principal); G89.29 Other chronic pain; M25.512 Pain in left shoulder; I10 Essential (primary) hypertension; E78.00 Pure hypercholesterolemia, unspecified; Z88.2 Allergy status to sulfonamides; Z88.1 Allergy status to other antibiotic agents; Z88.5 Allergy status to narcotic agent; Z88.6 Allergy status to analgesic agent
CPT/HCPCS: 96372; 99284-25; J1885; J2360

== ENCOUNTER → 2018-03-04 | Outpatient (CLI) | payer MEDICARE ==
[~2018-03-04] MED LIST changes: +BUPIVACAINE MPF 0.25% 10 ML VIAL.; -IOHEXOL 180 MG/ML 10 ML VIAL.; -methylPREDNISolone ACETATE 80 MG/ML VIAL.
== END | disposition home or self-care (01) ==
LOC: PNCL 10:51
DX: M79.1 Myalgia (principal); M19.012 Primary osteoarthritis, left shoulder; M19.011 Primary osteoarthritis, right shoulder; M50.122 Cervical disc disorder at C5-C6 level with radiculopathy; M96.1 Postlaminectomy syndrome, not elsewhere classified; E78.00 Pure hypercholesterolemia, unspecified; I10 Essential (primary) hypertension; K21.9 Gastro-esophageal reflux disease without esophagitis; Z86.010 Personal history of colon polyps; E66.9 Obesity, unspecified; Z90.710 Acquired absence of both cervix and uterus; Z90.721 Acquired absence of ovaries, unilateral; Z90.79 Acquired absence of other genital organ(s); Z98.51 Tubal ligation status; Z72.89 Other problems related to lifestyle; F17.290 Nicotine dependence, other tobacco product, uncomplicated; Z86.14 Personal history of Methicillin resistant Staphylococcus aureus infection; Z88.5 Allergy status to narcotic agent; Z88.1 Allergy status to other antibiotic agents; Z98.890 Other specified postprocedural states
CPT/HCPCS: 20553; J1030; J3490

== ENCOUNTER → 2018-04-08 | Outpatient (CLI) | payer MEDICARE ==
[~2018-04-08] MED LIST changes: -BUPIVACAINE MPF 0.25% 10 ML VIAL.; +CONTRAST GIVEN. MC; +IOHEXOL 300 MG/ML 10ML VIAL. IJ; +LIDOCAINE WITH 8.4% SOD BICARB 3 ML DISP.SYRIN. INJ; -methylPREDNISolone ACETATE 40 MG/ML VIAL.
[2018-04-08] MEDS: IOHEXOL 300 MG/ML 10ML VIAL. IT (09:28)
[2018-04-08] MEDS: LIDOCAINE WITH 8.4% SOD BICARB 3 ML DISP.SYRIN. INJ (09:28)
== END | disposition home or self-care (01) ==
LOC: RAD 10:39
DX: M50.322 Other cervical disc degeneration at C5-C6 level (principal); M48.02 Spinal stenosis, cervical region; I10 Essential (primary) hypertension; E11.9 Type 2 diabetes mellitus without complications; E78.5 Hyperlipidemia, unspecified; E78.00 Pure hypercholesterolemia, unspecified
CPT/HCPCS: 72126; 72240; Q9967

== ENCOUNTER 2018-04-23 12:58 | Emergency (ER) | payer MEDICARE ==
[2018-04-23 13:19] LABS: POC GLUCOSE 124 mg/dL (70-99)
[2018-04-23] MEDS: KETOROLAC 60 MG/2 ML INJ. IM (13:45)
[2018-04-23] MEDS: diazePAM 5 MG TABLET PO (13:45)
[2018-04-23 13:49] LABS: BILIRUBIN,URINE NEGATIVE (NEG); CLARITY,URINE CLEAR; COLOR,URINE YELLOW; GLUCOSE,URINE NEGATIVE (NEG); NITRITE,URINE NEGATIVE (NEG); PROTEIN,URINE NEGATIVE (NEG-TRACE); UROBILINOGEN,URINE 0.2 mg/dL (0.2 mg/dL)
[2018-04-23 14:05] LABS: BACTERIA,URINE MOD /HPF (0-FEW); HYALINE CASTS, URINE MODERATE /HPF; RBC,URINE 0 /HPF (0-2); SQUAMOUS EPITHELIAL CELL,UR MOD /LPF; YEAST,URINE PRESENT /HPF
[2018-04-23 14:12] LABS: ADD MAN DIFF? NO
[2018-04-23 14:21] LABS: BASO % 0 % (0-3); EOS # 0.1 x10^3/uL (0.0-0.7); EOS % 3 % (0-3); HEMATOCRIT 37.9 % (36.0-47.0); HEMOGLOBIN 12.9 g/dL (12.0-15.5); LYMPH # 1.6 x10^3/uL (1.0-4.8); LYMPH % 45 % (24-48); MEAN CORPUSCULAR HEMOGLOBIN 29 pg (25-35); MEAN CORPUSCULAR HGB CONC 34 g/dL (31-37); MEAN CORPUSCULAR VOLUME 86 fL (79-100); MONO # 0.3 x10^3/uL (0.0-1.1); MONO % 7 % (0-9); NEUT # 1.6 x10^3uL (1.8-7.7); NEUT % 44 % (31-73); PLATELET COUNT 187 x10^3/uL (140-400); RED BLOOD COUNT 4.44 x10^6/uL (3.50-5.40); RED CELL DISTRIBUTION WIDTH 15.5 % (11.5-14.5); WHITE BLOOD COUNT 3.6 x10^3/uL (4.0-11.0)
[2018-04-23 14:30] LABS: ANION GAP 6 (6-14); BLOOD UREA NITROGEN 20 mg/dL (7-20); CARBON DIOXIDE 31 mmol/L (21-32); CHLORIDE 104 mmol/L (98-107); CREATININE 1.2 mg/dL (0.6-1.0); GFR 56.2; GLUCOSE 115 mg/dL (70-99); POTASSIUM 3.7 mmol/L (3.5-5.1); SODIUM 141 mmol/L (136-145)
== END 2018-04-23 15:11 | disposition home or self-care (01) ==
LOC: ER 12:58
DX: G89.29 Other chronic pain (principal); M19.90 Unspecified osteoarthritis, unspecified site; M25.50 Pain in unspecified joint; I10 Essential (primary) hypertension; E03.9 Hypothyroidism, unspecified; E78.00 Pure hypercholesterolemia, unspecified; K21.9 Gastro-esophageal reflux disease without esophagitis; Z90.710 Acquired absence of both cervix and uterus; Z98.51 Tubal ligation status; Z88.6 Allergy status to analgesic agent; Z88.1 Allergy status to other antibiotic agents; Z88.5 Allergy status to narcotic agent; Z88.2 Allergy status to sulfonamides
CPT/HCPCS: 36415; 80048; 81001; 82962; 85025; 96372; 99284; J1885

== ENCOUNTER → 2018-11-30 | Outpatient (CLI) | payer MEDICARE ==
[2018-08-01 15:27] VITALS: BP 109/67
[~2018-11-30] MED LIST changes: +ALBU2.5V8 INH; +AMIT25TA PO; +AMLO10TA4 PO; +AMLO10TA8 PO; +AMOX1TAB11 PO; +ATOR20TA58 PO; +BACL10TA PO; +CA C1TAB63 PO; +CHOL500021 PO; -CONTRAST GIVEN. MC; +CYCL10TA2 PO; +CYCL5TAB PO; +DICL75TA PO; +DIPH25CA58 PO; +DULO60CA6 PO; +EPIPEN 2-P0.3 MG/0.3 IJ; +ESOM20CA PO; +ESTR2TAB PO; +FENT1PAT17 TD; +FLUT16SP NS; +GABA-689 PO; +GABA300C18 PO; +HYDR-2761 PO; +HYDR-3164 PO; +HYDR12.575 PO; +HYDR50TA PO; -IOHEXOL 300 MG/ML 10ML VIAL. IJ; +L.AC1CAP4 PO; +LEVO25TA4 PO; +LEVO50TA5 PO; +LIDO700A4 TP; -LIDOCAINE WITH 8.4% SOD BICARB 3 ML DISP.SYRIN. INJ; +MELO15TA23 PO; +METF500T16 PO; +METH750T2 PO; +METO-239 PO; +MULT1TAB52 PO; +OLME20TA17 PO; +OLME40TA12 PO; +OMEP20CA9 PO; +ONDA4TAB12 PO; +OXYC1TAB15 PO; +PIRO20CA2 PO; +POLY17PO28 PO; +PRED20TA PO; +PREG150C PO; +RANI-348 PO; +RANI150T2 PO; +SENN-22 PO; +SUCR1TAB35 PO; +TRAM50TA PO; +[UNRECOGNIZED DRUG - REMARK]
--- NOTE | 2018-11-30 12:29 | PAIN ---
DATE OF SERVICE: 11/30/2018 DIAGNOSES: 1. Lumbar radiculopathy with lumbar post-laminectomy syndrome with spinal cord stimulation therapy. 2. Cervical radiculopathy with cervical degenerative disk disease. 3. Myofascial pain. 4. Bilateral shoulder joint pain with osteoarthritis. HISTORY OF PRESENT ILLNESS: The patient is a 58-year-old female, who returns for followup status post spinal cord stimulator placement and also previous trigger point injections, last seen on 03/04/2018. The patient did very well with these injections, about 50% improvement for several weeks, but the pain returned. The patient reports that she had a lumbar diskectomy at L5 in 07/2018. Also had a set of physical therapy done after that, as well as some water therapy, which initially helped, but then made the pain worse. The patient reports she has been recently been diagnosed with fibromyalgia from a neurologist that she is seeing. Reports pain is significant at base of the neck, shoulders bilaterally, upper elbows, upper back, mid back, low back, lower extremities bilaterally. The patient reports pain is a 9 on a scale of 10 at its worst, 8 on average, 4 at its least and is an 8 today. The patient reports it is aching, becoming constant, severe at times, worse with activity, walking, standing, variable pain throughout the body is noted after time to time without certain ability to predict it. The patient reports that she sleeps about 2-3 hours at a time, it can awaken her from sleep some nights, but not others. The patient reports all of her joints are hurting, especially her left elbow, but she has had no injury to the joints that she is aware of. The patient reports no new motor or sensory deficits, no new bowel or bladder incontinence. PHYSICAL EXAMINATION: VITAL SIGNS: The patient's blood pressure 104/57, pulse 94, respirations are 18, temperature 97.5 degrees Fahrenheit, weight is 257 pounds. GENERAL: The patient is awake, alert, oriented, appropriate, very pleasant demeanor. HEENT: Head is normocephalic, atraumatic. Extraocular movements intact and symmetrical. Oral cavity, mucous membranes are moist and pink. Dentition is intact. NECK: Shows anterior throat supple without palpable lymphadenopathy noted. Swallow reflex is symmetrical. CHEST: Shows normal with inspection. Breath sounds clear to auscultation bilaterally. HEART: Shows S1, S2 clear. No murmurs auscultated. ABDOMEN: Obese, soft, nontender, nondistended. No palpable organomegaly is noted. No rebound or guarding demonstrated. BACK: Shows spine grossly in the midline. Normal appearing thoracic kyphosis and lumbar lordotic curvature with well-healed surgical scar noted in the lumbar distribution. Lumbar paraspinous muscle shows symmetrical on inspection. On palpation shows some moderate tenderness diffusely bilaterally throughout the upper, middle, lower distribution of paraspinous muscles without radiation. The patient has good rotational motion of lumbar spine, both laterally as well as extension and flexion. The patient shows a well-healed surgical scar of spinal cord stimulator battery on the right posterior gluteus as well, which is nontender. EXTREMITIES: Lower extremities show deep tendon reflexes at 2+ in the patellar, 1+ tendo calcaneus tendons. Motor exam is 4/5 but equal and symmetrical with dorsiflexion, extension, quadriceps and hamstring flexion bilaterally. Peripheral pulses are 1+ posterior tibia. No peripheral edema is noted. Options were discussed with the patient. The patient's old chart was reviewed as her current medication regimen updated. Current review of systems updated today as well and we will recommend increasing her Lyrica from 150 mg to 300 mg twice daily as tolerated. The patient will maintain her Cymbalta dose at its current level. Also, we will contact [facility] for evaluation and potential reprogramming of the patient's spinal cord stimulator system. The patient will follow up with her primary care physician regarding the medication changes and we will make arrangements to meet with the spinal cord stimulator service liaison representative to reprogram in the near future. Followup approximately 4 weeks or as necessary. TROY TERAN MD DR: IVETT/christine JOB#: [id number] / [id number] JIL Bautista APRN
== END | disposition home or self-care (01) ==
LOC: PNCL 10:17
PROVIDERS: ATTEND Anesthesiology
DX: M96.1 Postlaminectomy syndrome, not elsewhere classified (principal); M50.10 Cervical disc disorder with radiculopathy, unspecified cervical region; M79.18 Myalgia, other site; M19.012 Primary osteoarthritis, left shoulder; M19.011 Primary osteoarthritis, right shoulder
CPT/HCPCS: G0463

== ENCOUNTER → 2018-12-22 | Outpatient (CLI) | payer MEDICARE ==
[2018-08-01 15:27] VITALS: BP 109/67
[~2018-12-22] MED LIST changes: +BUPIVACAINE MPF 0.25% 10 ML VIAL. ONE; +OLME5TAB4 PO; +OMEP20CA10 PO; -OMEP20CA9 PO; +PREG300C PO; +methylPREDNISolone ACETATE 40 MG/ML VIAL. ONE
--- NOTE | 2018-12-23 00:51 | PAIN ---
DATE OF SERVICE: 12/22/2018 DIAGNOSES: 1. Lumbar radiculopathy with lumbar post-laminectomy syndrome and lumbar degenerative disk disease. 2. Cervical degenerative disk disease with cervical radiculopathy. 3. Myofascial pain. 4. Bilateral shoulder joint pain with primary osteoarthritis. HISTORY OF PRESENT ILLNESS: The patient is a 58-year-old female, who returns for followup status post trigger point injection as well as spinal cord stimulator therapy and is having that readjusted to a higher frequency level setting with her rep that she is turning up every other day to increase the frequency and hopefully control some of the back and leg pain. The patient reports significant pain in the back and now is becoming more spastic, more tight in the low back over the past month or so. The patient reports it is worse with walking, standing, especially getting up from seated position. She has been using her arms to help herself up significantly and this is causing some elbow pain as well bilaterally secondary to the motion. The patient reports pain is across the low back, slightly worse on the left than the right, but present bilaterally. It is 8 on a scale of 8-10 at its worst, 6 on an average, 6 at its least and is 6 today. The patient reports it is sharp, shooting, stabbing, becoming constant, more severe, awakens her from sleep at night but only about every 6 hours. The patient reports no new motor or sensory deficits, no new bowel or bladder incontinence. Stimulator is working well with good coverage, but the pain is not reduced significantly in the low back, but doing very well for the lower extremities by her report. The patient reports again more spasticity, more tightness, sensation in the low back. She has tried previous therapies performed including water therapy, which did not do very well for her back pain as well. PHYSICAL EXAMINATION: VITAL SIGNS: The patient's blood pressure is 117/75, pulse 96, respirations 16, temperature 97.6 degrees Fahrenheit. Weight is 266 pounds. GENERAL: The patient is awake, alert, oriented, appropriate, very pleasant demeanor. HEENT: Head shows normocephalic, atraumatic. Extraocular movements intact and symmetrical. Oral cavity: Mucous membranes moist and pink. Dentition is intact. NECK: Shows anterior throat supple without palpable lymphadenopathy noted. Swallow reflex symmetrical. CHEST: Shows normal on inspection. Breath sounds clear to auscultation bilaterally. HEART: Shows S1, S2 clear. No murmurs auscultated. ABDOMEN: Obese, soft, nontender, nondistended. No palpable organomegaly is noted. No rebound or guarding demonstrated. BACK: Shows spine grossly in the midline. Well-healed surgical scar is noted in the lumbar distribution. The patient shows normal-appearing thoracic kyphosis and some flattening of lumbar lordotic curvature. Lumbar paraspinous muscle shows symmetrical on inspection; with palpation shows some moderate tenderness in the low thoracic paraspinous musculature as well as the upper and mainly lower lumbar paraspinous musculature, very firm rope-like musculature throughout these regions in the thoracic paraspinous musculature as well as lumbar paraspinous musculature consistent with trigger point areas of musculature, very firm rope-like musculature, very tender, especially in the lower lumbar paraspinous musculature, also into the gluteus more medially bilaterally, but again worse on the left than the right with palpation and very firm rope-like musculature in the gluteus musculature as well, very tender, but again without radiation on palpation. EXTREMITIES: The patient's lower extremities show deep tendon reflexes 1+ in the patella and tendo calcaneus tendons. Motor exam is approximately 4 on a scale 5 and equal and symmetrical without deficits. Peripheral pulses are 1+ bilaterally. Options were discussed with the patient. The patient's old chart was reviewed as was her current medication regimen updated. Current review of systems updated today as well. We will proceed with trigger point injections of the bilateral thoracic paraspinous musculature, bilateral lumbar paraspinous musculature and bilateral gluteus musculature. Risks were discussed including but not limited to bleeding, infection, possibility of intravascular injection sequelae, spread of local anesthetic and numbness, side effects of steroid medication and poor results regarding pain control. The patient understands and wished to proceed. The patient will return to clinic in approximately 4 weeks for followup. She was counseled as to return appointment, activity level and side effects to be aware of. The patient also will continue increasing her stimulator frequency as instructed with her [employer] exhibit display representative. DIAGNOSIS: Lumbar myofascial pain and radiculopathy with post lumbar laminectomy syndrome and lumbar degenerative disk disease. PROCEDURE: Trigger point injections, bilateral thoracic paraspinous musculature, bilateral lumbar paraspinous musculature, bilateral gluteus musculature under sterile prep and drape using local anesthetic. MEDICATION INJECTED: A total of 40 mg Depo-Medrol plus total of 10 mL of 0.25% bupivacaine after negative aspiration at each injection site. CONDITION AT DISCHARGE: Stable. The patient tolerated the procedure well, had no complications. TROY TERAN MD DR: IVETT/christine JOB#: [id number] / [id number]
== END | disposition home or self-care (01) ==
LOC: PNCL 11:14
PROVIDERS: ATTEND Anesthesiology
DX: M79.18 Myalgia, other site (principal); M19.012 Primary osteoarthritis, left shoulder; M19.011 Primary osteoarthritis, right shoulder; M51.16 Intervertebral disc disorders with radiculopathy, lumbar region; M96.1 Postlaminectomy syndrome, not elsewhere classified; M50.10 Cervical disc disorder with radiculopathy, unspecified cervical region; Z88.1 Allergy status to other antibiotic agents; Z88.2 Allergy status to sulfonamides; Z88.6 Allergy status to analgesic agent; Z88.5 Allergy status to narcotic agent
CPT/HCPCS: 20553; J1030; J3490

== ENCOUNTER → 2019-02-22 | Outpatient (CLI) | payer MEDICARE ==
[2018-08-01 15:27] VITALS: BP 109/67
--- NOTE | 2019-02-22 22:07 | PAIN ---
DATE OF SERVICE: 02/22/2019 DIAGNOSES: 1. Lumbar radiculopathy with post-lumbar laminectomy syndrome and lumbar degenerative disk disease with spinal cord stimulator. 2. Cervical radiculopathy with cervical degenerative disk disease. 3. Myofascial pain. 4. Right shoulder joint pain with osteoarthritis. 5. Left elbow lateral epicondylitis. HISTORY OF PRESENT ILLNESS: The patient is a 58-year-old female, who returns for followup status post spinal cord stimulator reprogramming, also trigger point injections on 12/22/2018. The patient did very well with these, reports approximately 80% improvement, now down to about 30% improvement, but still significant improvement in the low back. The patient reports her main complaint today is left elbow pain. She has been having some difficulty with her right wrist and has been using her left arm to prop herself up repetitively and exclusively to bear the weight of her upper body when she is getting up from a seated position or out of bed, etc. and has had some increased pain in the lateral aspect of the left elbow. The patient reports it is becoming more constant, aching and sharp, worse with motion, lifting any items, reaching above her head and twisting anything with the left arm. The patient reports pain is 9 on a scale of 10 at its worst, 7 on average, 5 at its least and is 7 today. The patient reports it is aching and sharp, becoming more constant on the lateral aspect of the elbow, even with minimal weight lifting in the left arm or picking up items. The patient reports no loss of motor function, but significant pain in the lateral elbow radiating to the lateral aspect of the forearm as well superiorly near the elbow. PHYSICAL EXAMINATION: VITAL SIGNS: Today, the patient's blood pressure is 138/89, pulse 90, respirations 16, temperature 97.4 degrees Fahrenheit, weight is 265 pounds. GENERAL: The patient is awake, alert, oriented, appropriate, very pleasant demeanor. HEENT: Normocephalic, atraumatic. Extraocular movements are intact, symmetrical. Oral cavity: Mucous membranes are moist and pink. Dentition is intact. NECK: Shows anterior throat supple without palpable lymphadenopathy noted. Swallow reflex is symmetrical. CHEST: Shows normal on inspection. Breath sounds clear to auscultation bilaterally. HEART: Shows S1, S2 clear. No murmurs auscultated. The patient is wearing a Holter monitor on the anterior left chest. ABDOMEN: Obese, soft, nontender, nondistended. BACK: Shows spine grossly in the midline. Well-healed surgical scarring is noted in the lumbar distribution. Once again easily palpable spinal cord stimulator generator in the right superior gluteus is noted. It is nontender. EXTREMITIES: The patient's upper extremities show deep tendon reflexes 2+ in the biceps, triceps tendons. Inclusion Special Education Teacher strength is strong with 5/5 fiberglass dowel drawing operator strength, biceps and triceps flexion bilaterally. The patient's left elbow shows significant tenderness with palpation over the lateral epicondyle and just inferior to this on to the extensor muscles on the left side on the lateral aspect medially. It is mildly tender on the medial epicondyle as well, but much more severe on the left. Right side shows no tenderness with palpation on the condyle. Options were discussed with the patient. The patient's old chart was reviewed as was her current medication regimen updated. Current review of systems updated today as well and we will proceed with a left lateral condyle injection of the elbow. Risks were discussed including but not limited to bleeding, infection, possibility of intravascular injection sequelae, spread of local anesthetic and numbness, side effects of steroid medication and poor results regarding pain control. The patient understands and wished to proceed. The patient will return to clinic in approximately 4 weeks for followup or as necessary. He was given instruction as well as side effects to be aware of. The patient also will contact [employer] procurement representative for retuning of her spinal cord stimulator as she can turn it down on her own as she was afraid she was getting some stimulation into the upper extremities from the stimulator. We will have her discuss this with the spinal cord stimulator rep to see if it can be reprogrammed in the near future as well. DIAGNOSIS: Left lateral epicondylitis with tennis elbow, left elbow. PROCEDURE: Left lateral elbow epicondyle injection using sterile prep and drape under local anesthetic. MEDICATION INJECTED: A total of 40 mg of Depo-Medrol plus total of 2 mL of 0.25% bupivacaine. CONDITION AT DISCHARGE: Stable. The patient tolerated the procedure well, had no complications. TROY TERAN MD DR: IVETT/christine JOB#: [id number] / [id number]
== END | disposition home or self-care (01) ==
LOC: PNCL 10:02
PROVIDERS: ATTEND Anesthesiology
DX: M77.12 Lateral epicondylitis, left elbow (principal); M19.011 Primary osteoarthritis, right shoulder; M51.16 Intervertebral disc disorders with radiculopathy, lumbar region; M96.1 Postlaminectomy syndrome, not elsewhere classified; M50.10 Cervical disc disorder with radiculopathy, unspecified cervical region; Z88.2 Allergy status to sulfonamides; Z88.1 Allergy status to other antibiotic agents; Z88.5 Allergy status to narcotic agent
CPT/HCPCS: 20605; J1030; J3490

== ENCOUNTER → 2019-03-31 | Outpatient (CLI) | payer MEDICARE ==
[2018-08-01 15:27] VITALS: BP 109/67
[~2019-03-31] MED LIST changes: -BUPIVACAINE MPF 0.25% 10 ML VIAL. ONE; -methylPREDNISolone ACETATE 40 MG/ML VIAL. ONE
--- NOTE | 2019-03-31 12:29 | CARD ---
MR#: [id number] Date of Study: 03/31/2019 Ordering Physician: ALISTAIR GIRARD, Referring Physician: ALISTAIR GIRARD, Tech: Rosenda Lucero [facility] APPROVED REPORT EXAM: Two-dimensional and M-mode echocardiogram with Doppler and color Doppler. Other Information Quality : Technically LimitedHR: 96bpm Rhythm : NSRTechnically limited study due to body habitus. INDICATION Palpitations 2D DIMENSIONS RVDd2.9 (2.9-3.5cm)Left Atrium(2D)2.9 (1.6-4.0cm) IVSd1.2 (0.7-1.1cm)Aortic Root(2D)3.1 (2.0-3.7cm) LVDd3.9 (3.9-5.9cm)LVOT Diameter2.0 (1.8-2.4cm) PWd0.9 (0.7-1.1cm)LVDs2.4 (2.5-4.0cm) FS (%) 36.8 %SV43.5 ml LVEF(%)67.3 (>50%) M-Mode DIMENSIONS Left Atrium(MM)2.77 (2.5-4.0cm)Aortic Root3.32 (2.2-3.7cm) Aortic Valve AoV Peak Moreno.149.6cm/sAoV VTI25.0cm AO Peak GR.9.0mmHgLVOT Peak Moreno.101.8cm/s AO Mean GR.5mmHgAVA (VMAX)2.05cm2 TREVON (VTI)2.20cm2 Mitral Valve MV E Sfmautde01.2cm/sMV DECEL INJV095fo MV A Ihwxolbf860.1cm/sE/A Ratio0.7 Pulmonary Valve PV Peak Tfkgwire352.6cm/s LEFT VENTRICLE The left ventricle is normal size. Proximal septal thickening is noted. The left ventricular systolic function is normal and the ejection fraction is within normal range. The Ejection Fraction is 65-70% . There is normal LV segmental wall motion. Transmitral Doppler flow pattern is Grade I-abnormal rela xation pattern. RIGHT VENTRICLE The right ventricle is normal size. There is normal right ventricular wall thickness. The right ventr icular systolic function is normal. ATRIA The left atrium size is normal. The right atrium size is normal. The interatrial septum is intact wit h no evidence for an atrial septal defect or patent foramen ovale as noted on 2-D or Doppler imaging. AORTIC VALVE Not well visualized. Grossly appears trileaflet. Doppler and Color Flow revealed no significant aorti c regurgitation. There is no significant aortic valvular stenosis. MITRAL VALVE The mitral valve is normal in structure and function. There is no evidence of mitral valve prolapse. There is no mitral valve stenosis. Doppler and Color Flow revealed no mitral valve regurgitation note d. TRICUSPID VALVE The tricuspid valve is normal in structure and function. Doppler and Color Flow revealed no tricuspid valve regurgitation noted. There is no tricuspid valve prolapse or vegetation. There is no tricuspid valve stenosis. PULMONIC VALVE The pulmonic valve is not well visualized. GREAT VESSELS The aortic root is normal in size. The ascending aorta is normal in size. The IVC is normal in size a nd collapses >50% with inspiration. PERICARDIAL EFFUSION There is no evidence of significant pericardial effusion. Critical Notification Critical Value: No <Conclusion> The left ventricular systolic function is normal and the ejection fraction is within normal range. Th e Ejection Fraction is 65-70%. There is normal LV segmental wall motion. Signed by : Al Quiñonez, Electronically Approved : 03/31/2019 12:29:36
== END | disposition home or self-care (01) ==
LOC: ECHO 10:36
PROVIDERS: ATTEND Internal Medicine Cardiovascular Disease
DX: R00.2 Palpitations (principal); R01.1 Cardiac murmur, unspecified
CPT/HCPCS: 93306

== ENCOUNTER → 2019-05-08 | Outpatient (CLI) | payer MEDICARE ==
[2018-08-01 15:27] VITALS: BP 109/67
[~2019-05-08] MED LIST changes: +BUPIVACAINE MPF 0.25% 10 ML VIAL. ONE; +methylPREDNISolone ACETATE 40 MG/ML VIAL. ONE
--- NOTE | 2019-05-09 05:09 | PAIN ---
DATE OF SERVICE: 05/08/2019 DIAGNOSES: 1. Lumbar radiculopathy, post-laminectomy syndrome, degenerative disk disease and lumbar spinal cord stimulator. 2. Cervical radiculopathy with cervical degenerative disk disease. 3. Myofascial pain. 4. Left elbow lateral epicondylitis. HISTORY OF PRESENT ILLNESS: The patient is a 59-year-old female who returns for followup status post left elbow lateral epicondyle injection with about 90% improvement for the first month. This was done in February. The patient reports the pain being returning now with use of her left elbow and arm. Otherwise, doing fairly well. The patient still has some pain in the low back and lower extremities with some difficulty with her stimulator. She is waiting for a new antenna for the charging apparatus from [employer] and is hoping this may help. She has had to reprogram several times. She did have falls. We discussed again back in July and after more discussion, decided that we would take a picture of her stimulator leads and we did that today and it does appear that the right most lead is inferior to where it was placed back in 2013, but the left one is still at the T8 level within the superior aspect of the lead itself. The patient will wait for her stimulator antenna and see if this makes any difference. If not, we will talk about some other options with her stimulator in the future. The patient reports her main complaint, however, is her left elbow, worse with activity, worse with weightbearing, rotation of the arm and wrist lifting items, driving the car. The patient reports it awakens her from sleep about every 4 hours or so if she lays on her left side, especially. The patient reports no new motor or sensory deficits. Again, was doing quite well until the last 2-3 weeks. The patient reports the pain is aching, sharp, stabbing, and becoming more constant, more severe in the elbow itself. PHYSICAL EXAMINATION: VITAL SIGNS: The patient's blood pressure 139/99, pulse 103, respirations are 16, temperature 97.9 degrees Fahrenheit, height is 5 feet 5 inches, and weight is 265 pounds. GENERAL: The patient is awake, alert, oriented, appropriate, very pleasant demeanor. HEENT: Head is normocephalic, atraumatic. Extraocular muscles are intact and symmetrical. Oral cavity, mucous membranes are moist and pink. Dentition is intact. NECK: Shows anterior throat supple without palpable lymphadenopathy noted. Swallow reflex symmetrical. CHEST: Shows normal with inspection. Breath sounds clear to auscultation bilaterally. HEART: Shows S1, S2 clear. No murmurs auscultated. ABDOMEN: Soft, nontender, nondistended. No palpable organomegaly is noted. There is no rebound or guarding demonstrated. BACK: The patient's back shows well-healed surgical scarring in the lumbar distribution with some mild tenderness in the lumbar paraspinous muscles. The patient's upper extremities show deep tendon reflexes 2+ in the biceps and triceps tendons. The patient's left elbow shows some significant tenderness over the lateral epicondyle with direct palpation towards the medial aspect of the joint on the lateral epicondyle, but without radiation. The patient does show good range of motion, both pronation and supination with the left hand and arm without significant increase in pain with some moderate increase with resistance. Peripheral pulses are 2+ radial bilaterally. Options were discussed with the patient. The patient's old chart was reviewed as her current medication regimen updated. Current review of systems updated today as well and we will proceed with a left epicondylar joint injection. Risks were again discussed including, but not limited to bleeding, infection, possibility of intravascular injection sequelae, spread of local anesthetic and numbness, side effects of steroid medication, exposure to fluoroscopy as well as poor results regarding pain control. The patient understands and wished to proceed. The patient will return to clinic in approximately 2 weeks for followup. She was counseled as to return appointment, activity level and side effects to be aware of. DIAGNOSIS: Left elbow lateral epicondylitis. PROCEDURES: Left lateral epicondyle injection using sterile prep and drape under local anesthetic. MEDICATION INJECTED: A total of 40 mg of Depo-Medrol plus total of 2 mL of 0.25% bupivacaine with negative aspiration. CONDITION AT DISCHARGE: Stable. The patient tolerated the procedure well, had no complications. TROY TERAN MD DR: IEVTT/christine JOB#: [id number] / [id number]
== END ==
LOC: PNCL 13:50
PROVIDERS: ATTEND Anesthesiology
DX: M77.12 Lateral epicondylitis, left elbow (principal); M96.1 Postlaminectomy syndrome, not elsewhere classified; M51.16 Intervertebral disc disorders with radiculopathy, lumbar region; M79.18 Myalgia, other site; M50.10 Cervical disc disorder with radiculopathy, unspecified cervical region
CPT/HCPCS: 20605; J1030; J3490

== ENCOUNTER → 2019-05-31 | Outpatient (CLI) | payer MEDICARE ==
[2018-08-01 15:27] VITALS: BP 109/67
[~2019-05-31] MED LIST changes: -BUPIVACAINE MPF 0.25% 10 ML VIAL. ONE; +CHOL10003 PO; +METH-38 PO; +NALO4SPR NS; +NAPR500T8 PO; +SENN-37 PO; -methylPREDNISolone ACETATE 40 MG/ML VIAL. ONE
--- NOTE | 2019-05-31 12:33 | RAD ---
CHEST PA LATERAL Clinical indications: Surgical clearance. History of pulmonary edema and July 2018. The patient is 59 years old. COMPARISON: July 30, 2018. Findings: No acute lung infiltrate or pleural effusion or pulmonary edema or lung mass or pneumothorax is seen. The heart size, pulmonary vasculature, mediastinum and both sumit are unremarkable. The osseous structures appear intact. Thoracic spinal canal stimulator device is apparent. Lower lumbar fusion is seen. Impression: No acute radiographic abnormality is seen. Electronically signed by: Dimitris Mock MD (05/31/2019 12:30 PM) [place] [id number]
== END | disposition home or self-care (01) ==
LOC: RAD 10:18
PROVIDERS: ATTEND Internal Medicine Pulmonary Disease
DX: Z01.818 Encounter for other preprocedural examination (principal); M43.26 Fusion of spine, lumbar region; Z87.09 Personal history of other diseases of the respiratory system
CPT/HCPCS: 71046

== ENCOUNTER 2019-06-01 16:01 | Emergency (ER) | payer MEDICARE ==
[~2019-06-01] VITALS: Ht 165.1 cm; Wt 117.9 kg
[~2019-06-01 16:01] MED LIST changes: -CHOL10003 PO; -METH-38 PO; -NALO4SPR NS; -NAPR500T8 PO; -SENN-37 PO
--- NOTE | 2019-06-01 16:51 | PHYS DOC ---
Past Medical History Past Medical History: Diabetes-Type II, Endometriosis, Fibromyalgia, Hype rtension Additional Past Medical Histor: chronic pain Past Surgical History: Tubal ligation, Other Additional Past Surgical Histo: KNEE REPAIR, PAIN STIMULATOR, BACK SURGERY, PINS IN RT WRIST Alcohol Use: None Drug Use: None Adult General Chief Complaint Chief Complaint: LOWER EXTREMITY SWELLING HPI HPI Patient is a 59 year old female that presents with posterior thigh swelling and pain. She also been having prepatellar swelling and pain. This has been ongoing for 3 days. Rates her pain a 7 out of 10 in severity. Review of Systems Review of Systems Constitutional: Denies fever or chills [] Eyes: Denies change in visual acuity, redness, or eye pain [] HENT: Denies nasal congestion or sore throat [] Respiratory: Denies cough or shortness of breath [] Cardiovascular: No additional information not addressed in HPI [] GI: Denies abdominal pain, nausea, vomiting, bloody stools or diarrhea [] : Denies dysuria or hematuria [] Musculoskeletal: Reports swelling to R thigh.] Integument: Denies rash or skin lesions [] Neurologic: Denies headache, focal weakness or sensory changes [] Endocrine: Denies polyuria or polydipsia [] Complete systems were reviewed and found to be within normal limits, except as documented in this note. Current Medications Current Medications Current Medications Medications (Trade) Dose Ordered Sig/Gary Start Time Stop Time Status Last Admin Dose Admin Ketorolac Tromethamine (Toradol Im) 30 mg 1X ONCE 06/01/19 17:00 06/01/19 17:01 DC 06/01/19 17:36 30 MG Allergies Allergies Allergies Coded Allergies Type Severity Reaction Last Updated Verified Cephalexin Monohydrate Allergy Intermediate Itching 11/27/16 Yes Sulfa (Sulfonamide Antibiotics) Allergy Intermediate 11/27/16 Yes azithromycin Allergy Intermediate Hives 11/27/16 Yes codeine Allergy Intermediate Hives 11/27/16 Yes morphine Allergy Intermediate Hives 11/27/16 Yes aspirin Adverse Reaction Intermediate Nausea 11/27/16 Yes Uncoded Allergies Type Severity Reaction Last Updated Verified NO MRIS NONCONDITIONAL SPINAL STIM Allergy Severe 08/12/17 Physical Exam Physical Exam Constitutional: Well developed, well nourished, no acute distress, non-toxic appearance. [] HENT: Normocephalic, atraumatic, bilateral external ears normal, oropharynx moist, no oral exudates, nose normal. [] Eyes: PERRLA, EOMI, conjunctiva normal, no discharge. [] Neck: Normal range of motion, no tenderness, supple, no stridor. [] Cardiovascular:Heart rate regular rhythm, no murmur [] Lungs & Thorax: Bilateral breath sounds clear to auscultation [] Abdomen: Bowel sounds normal, soft, no tenderness, no masses, no pulsatile masses. [] Skin: Warm, dry, no erythema, no rash. [] Back: No tenderness, no CVA tenderness. [] Extremities: has tenderness to posterior thigh. Also has prepatellar swelling and tenderness. Neurologic: Alert and oriented X 3, normal motor function, normal sensory function, no focal deficits noted. [] Psychologic: Affect normal, judgement normal, mood normal. [] Current Patient Data Vital Signs Vital Signs Date Time Temp Pulse Resp B/P (MAP) Pulse Ox O2 Delivery O2 Flow Rate FiO2 06/01/19 16:33 98.2 103 16 171/92 (118) 95 Room Air 98.2 EKG EKG [] Radiology/Procedures Radiology/Procedures [][facility] [address] [place] [address] IMAGING REPORT Signed PATIENT: REGINO LUCIO ACCOUNT: [id number] : 1960 LOCATION: ER AGE: 59 SEX: F EXAM STATUS: REG ER ORD. PHYSICIAN: MINESH LEES APRN REASON: swelling pain PROCEDURE: VENOUS LOWER EXTREMITY RIGHT Right lower extremity venous duplex Doppler ultrasound HISTORY: Right leg pain and swelling. TECHNIQUE: Grayscale and duplex Doppler sonography were utilized FINDINGS: No DVT evident with compressibility, patent color Doppler blood flow and augmentation of blood flow the right common femoral vein, profunda femoral vein, superficial femoral vein and popliteal vein. No DVT evident with patent color Doppler blood flow the posterior tibial and peroneal veins within the calf. IMPRESSION: Negative right leg for DVT. Electronically signed by: Judit Israel MD (06/01/2019 6:30 PM) [facility] DICTATED and SIGNED BY: JUDIT ISRAEL MD DATE: 06/01/19 183 Course & Med Decision Making Course & Med Decision Making Pertinent Labs and Imaging studies reviewed. (See chart for details) Will get ultrasound to rule out DVT. Ultrasound is negative. Will d/c to follow up with primary care. Dragon Disclaimer Madelineon Disclaimer This electronic medical record was generated, in whole or in part, using a voice recognition dictation system. Departure Departure Impression: Primary Impression: Prepatellar bursitis Disposition: HOME, SELF-CARE Condition: STABLE Referrals: JIL VAZ APRN (PCP) Patient Instructions: Prepatellar Bursitis with Rehab-SportsMed Additional Instructions: Thank you for visiting [facility]. We appreciate you trusting us with your care. If any additional problems come up don't hesitate to return to visit us. Please follow up with your primary care provider so they can plan additional care if needed and know about the problem that you had. If symptoms worsen come back to the Emergency Department. Any concerning symptoms that start such as chest pain, shortness of air, weakness or numbness on one side of the body, running high fevers or any other concerning symptoms return to the ER. Scripts Naproxen (NAPROXEN) 500 Mg Tablet.dr 1 TAB PO BID PRN for PAIN, #30 TAB 1 Refill Prov: MINESH LEES APRN 06/01/19 Problem Qualifiers Primary Impression: Prepatellar bursitis Laterality: right Qualified Codes: M70.41 - Prepatellar bursitis, right knee MINESH LEES APRN Jun 01, 2019 16:51
[2019-06-01] MEDS ORDERED: KETOROLAC 60 MG/2 ML VIAL. IM ONE (17:00)
--- NOTE | 2019-06-01 18:32 | RAD ---
Right lower extremity venous duplex Doppler ultrasound HISTORY: Right leg pain and swelling. TECHNIQUE: Grayscale and duplex Doppler sonography were utilized FINDINGS: No DVT evident with compressibility, patent color Doppler blood flow and augmentation of blood flow the right common femoral vein, profunda femoral vein, superficial femoral vein and popliteal vein. No DVT evident with patent color Doppler blood flow the posterior tibial and peroneal veins within the calf. IMPRESSION: Negative right leg for DVT. Electronically signed by: Eric Israel MD (06/01/2019 6:30 PM) [facility]
[2019-06-01] MEDS ORDERED: NAPR500T8 PO (18:37)
[2019-06-01 18:54] VITALS: BP 136/78
== END 2019-06-01 18:51 | disposition home or self-care (01) ==
LOC: ER 16:01
DX: M70.41 Prepatellar bursitis, right knee (principal); M79.89 Other specified soft tissue disorders; E11.9 Type 2 diabetes mellitus without complications; I10 Essential (primary) hypertension; G89.29 Other chronic pain; Z98.51 Tubal ligation status; Z88.1 Allergy status to other antibiotic agents; Z88.2 Allergy status to sulfonamides; Z88.5 Allergy status to narcotic agent; Z88.6 Allergy status to analgesic agent
CPT/HCPCS: 93971; 96372; 99284; J1885; 99283

== ENCOUNTER → 2019-06-16 | Outpatient (CLI) | payer MEDICARE ==
[2019-06-01 18:54] VITALS: BP 136/78
[~2019-06-16] MED LIST changes: +CHOL10003 PO; +METH-38 PO; +NALO4SPR NS; +NAPR500T8 PO; +SENN-37 PO
== END | disposition home or self-care (01) ==
LOC: SURGPAT 16:45
PROVIDERS: ATTEND Neurological Surgery
DX: Z01.812 Encounter for preprocedural laboratory examination (principal); T85.122A Displacement of implanted electronic neurostimulator of spinal cord electrode (lead), initial encounter; M54.9 Dorsalgia, unspecified
CPT/HCPCS: 36415; 87641

== ENCOUNTER 2019-06-20 06:58 | Inpatient (IN) | payer MEDICARE ==
[2019-06-20] VITALS (8 sets, daily range): BP systolic 109–132; BP diastolic 64–96
[~2019-06-20] VITALS: Ht 162.6 cm; Wt 90.7 kg
[~2019-06-20 06:58] MED LIST changes: -METH-38 PO; -SENN-37 PO
[2019-06-20] MEDS ORDERED: PROCHLORPERAZINE 10 MG/2 ML VIAL. IV PRN (07:00)
[2019-06-20] MEDS ORDERED: LIDOCAINE 1% PF 2 ML VIAL. ID PRN (07:00)
[2019-06-20] MEDS ORDERED: ONDANSETRON PF 4 MG/2 ML VIAL. IV PRN ×2 (07:00→13:00)
[2019-06-20] MEDS ORDERED: IV RINGERS,LACTATED 1000ML 1,000 ML IV SCH (07:00)
[2019-06-20] MEDS ORDERED: fentaNYL PF VIAL 100 MCG/2 ML VIAL IV PRN ×2 (07:00→13:00)
[2019-06-20] MEDS ORDERED: NAPR500T8 PO (07:18)
[2019-06-20] MEDS ORDERED: THROMBIN TOPICAL 20,000 UNIT SPRAY.SYRN KIT TP ONE (07:30)
[2019-06-20] MEDS ORDERED: LIDOCAINE 1%/EPI 1:100,000 20 ML VIAL. ONE (07:30)
[2019-06-20] MEDS ORDERED: BUPIVACAINE MPF 0.5% 30 ML VIAL. ONE (07:30)
[2019-06-20] MEDS ORDERED: GELATIN SPONGE SIZE 100. ONE (07:30)
[2019-06-20] MEDS ORDERED: BACITRACIN 50,000 UNIT in IV NORMAL SALINE 1000ML BAG 1,000 ML IRR ONE (07:45)
[2019-06-20] MEDS: INSULIN LISPRO 100 UNIT/ML 3ML VIAL for OP,RR ONLY. SQ PRN ×2 (07:50→14:58)
[2019-06-20] MEDS ORDERED: ROCURONIUM 50 MG/5 ML VIAL. ONE (08:18)
[2019-06-20] MEDS ORDERED: ONDANSETRON PF 4 MG/2 ML VIAL. ONE (08:18)
[2019-06-20] MEDS ORDERED: LIDOCAINE 2% PF 5 ML VIAL. ONE (08:18)
[2019-06-20] MEDS ORDERED: DEXAMETHASONE SOD PHOS 20 MG/5 ML VIAL. ONE (08:18)
[2019-06-20] MEDS ORDERED: PROPOFOL 20 ML IV ONE (08:18)
[2019-06-20] MEDS ORDERED: REMIFENTANIL 2 MG VIAL. IV ONE (08:18)
[2019-06-20] MEDS ORDERED: PROPOFOL 50 ML IV ONE ×2 (08:23→12:29)
[2019-06-20] MEDS ORDERED: SUCCINYLCHOLINE 200 MG/10 ML VIAL. ONE (08:28)
[2019-06-20] MEDS ORDERED: fentaNYL PF VIAL 100 MCG/2 ML VIAL ONE ×2 (08:29→13:54)
[2019-06-20] MEDS ORDERED: PHENYLEPHRINE 10 MG/ML VIAL. ONE (08:30)
[2019-06-20] MEDS: VANCOMYCIN 1GM IVPB FOR OMNI 250 ML IV PRN ×2 (08:40→08:42)
[2019-06-20] MEDS ORDERED: GLYCOPYRROLATE 1 MG/5 ML VIAL. ONE (09:33)
[2019-06-20] MEDS ORDERED: NEOSTIGMINE METHYLSULFATE 5 MG/5 ML SYRINGE. ONE (09:34)
[2019-06-20] MEDS ORDERED: FAMOTIDINE 20 MG/2 ML VIAL ONE (09:36)
[2019-06-20] MEDS ORDERED: SEVOFLURANE > 120 MINUTES. IH ONE (11:35)
--- NOTE | 2019-06-20 12:49 | PDOC ---
BRIEF OPERATIVE NOTE Date: Jun 20, 2019 Pre-Op Diagnosis back pain, leg pain, migration of spinal cord stimulator lead Post-Op Diagnosis same Procedure Performed removal of thoracic spinal cord stimulator leads and generator, T9 laminectomy, partial T8 laminectomy for placement of thoracic spinal cord stimulator paddle lead with placement and connection to pulse generator Anesthesia Type: General Blood Loss 25mL Specimens Obtained laminectomy, explant passed off to nursing for proper disposal Findings scar tissue, neuromonitoring baseline throughout procedure, stimulation with goo d responses bilaterally slightly more prominent on the right Complications none apparent AMY ENGEL MD Jun 20, 2019 12:49
[2019-06-20] MEDS ORDERED: IV NORMAL SALINE 1000ML BAG 1,000 ML IV SCH (12:50)
[2019-06-20] MEDS ORDERED: CALCIUM CARBONATE 500 MG TAB.CHEW PO PRN (13:00)
[2019-06-20] MEDS ORDERED: ZOLPIDEM 5 MG TABLET. PO PRN (13:00)
[2019-06-20] MEDS ORDERED: FLUTICASONE 50MCG/NASAL SPRAY 16GM BOTTLE. NS PRN (13:00)
[2019-06-20] MEDS ORDERED: NALOXONE 0.4 MG/ML VIAL. IV PRN ×2 (13:00)
[2019-06-20] MEDS ORDERED: diphenhydrAMINE HCL 25 MG CAPSULE PO PRN (13:00)
[2019-06-20] MEDS ORDERED: ACETAMINOPHEN 325 MG TABLET. PO PRN (13:00)
[2019-06-20] MEDS ORDERED: fentaNYL 50MCG/HR PATCH 1 PATCH PATCH.TD72 TD SCH (13:00)
[2019-06-20] MEDS ORDERED: OLMESARTAN MEDOXOMIL 20 MG PO PRN (13:00)
[2019-06-20] MEDS ORDERED: NON FORMULARY ITEM (Naloxone HCl (Narcan) 4 MG) NS SCH (13:00)
[2019-06-20] MEDS ORDERED: diphenhydrAMINE 50 MG/ML VIAL IV PRN (13:00)
[2019-06-20] MEDS ORDERED: oxyCODONE/APAP 5/325 1 TAB TABLET PO PRN (13:00)
[2019-06-20] MEDS ORDERED: MAG HYDROX/ALUMINUM HYD/SIMETH 30 ML ORAL.SUSP PO PRN (13:00)
[2019-06-20] MEDS ORDERED: 0.9 % SODIUM CHLORIDE 10 ML DISP.SYRIN. IV PRN (13:00)
[2019-06-20] MEDS: fentaNYL PF VIAL 100 MCG/2 ML VIAL IV PRN ×5 (13:25→16:34)
[2019-06-20] MEDS: DULoxetine HCL 30 MG CAPSULE.DR PO SCH (14:00)
[2019-06-20] MEDS ORDERED: hydroCHLOROthiazide 12.5 MG CAPSULE PO SCH (14:00)
[2019-06-20] MEDS ORDERED: INSULIN LISPRO 100 UNIT/ML 3ML VIAL for OP,RR ONLY. SQ PRN (15:00)
--- NOTE | 2019-06-20 16:27 | NUR ---
Rec'd from PACU per bed, alert/oriented, dressing shows shadowing on all 3 dressings, bilateral KATHARINE & JORDAN hose in place, oxygen @ 2L/nc, Suarez rep here to restart pain stimulator, IVF infusing left hand, SALAS, slight weakness noted on RLE, ambulated to bathroom with assist, tolerated fair, oriented to surroundings, call light within reach
[2019-06-20] MEDS: CALCIUM CARB/VIT D3 500/200 TABLET. PO SCH (16:32)
[2019-06-20] MEDS: METHOCARBAMOL 750 MG TABLET PO SCH ×2 (16:32→20:36)
[2019-06-20] MEDS: FERROUS SULFATE 325 MG TABLET. PO SCH (16:32)
[2019-06-20] MEDS: metFORMIN 500 MG TABLET PO SCH (16:33)
[2019-06-20] MEDS: oxyCODONE/APAP 5/325 1 TAB TABLET PO PRN ×2 (18:33→23:26)
[2019-06-20] MEDS: SENNOSIDES/DOCUSATE 8.6/50MG TABLET. PO SCH (20:37)
[2019-06-20] MEDS: PREGABALIN 75 MG CAPSULE PO SCH (20:37)
[2019-06-20] MEDS: DOCUSATE SODIUM 100 MG CAPSULE. PO SCH (20:37)
[2019-06-20] MEDS: DICLOFENAC SODIUM 25 MG TABLET.DR PO SCH (20:41)
[2019-06-20] MEDS ORDERED: AMITRIPTYLINE HCL 25 MG TABLET. PO SCH (21:00)
[2019-06-20] MEDS ORDERED: FAMOTIDINE 20 MG TABLET. PO SCH (21:00)
[2019-06-20] MEDS ORDERED: LACTOBACILLUS RHAMNOSUS GG 1 CAPSULE. PO PRN (21:00)
[2019-06-20] MEDS ORDERED: METOPROLOL SUCC 24HR ER 25 MG TAB.ER.24H. PO SCH (21:00)
[2019-06-21] MEDS: fentaNYL PF VIAL 100 MCG/2 ML VIAL IV PRN (02:32)
[2019-06-21 03:02] VITALS: BP 117/72
[2019-06-21 05:12] VITALS: BP 119/67
[2019-06-21] MEDS: oxyCODONE/APAP 5/325 1 TAB TABLET PO PRN (05:14)
[2019-06-21] MEDS ORDERED: PANTOPRAZOLE 40 MG TABLET.DR. PO PRN (07:30)
[2019-06-21] MEDS ORDERED: LEVOTHYROXINE 25 MCG TABLET. PO SCH (07:30)
[2019-06-21] MEDS: metFORMIN 500 MG TABLET PO SCH (08:09)
[2019-06-21] MEDS: DICLOFENAC SODIUM 25 MG TABLET.DR PO SCH (08:10)
[2019-06-21] MEDS: PREGABALIN 75 MG CAPSULE PO SCH (08:10)
[2019-06-21] MEDS: METHOCARBAMOL 750 MG TABLET PO SCH (08:10)
[2019-06-21] MEDS: CALCIUM CARB/VIT D3 500/200 TABLET. PO SCH (08:11)
[2019-06-21] MEDS: DOCUSATE SODIUM 100 MG CAPSULE. PO SCH (08:11)
[2019-06-21] MEDS: DULoxetine HCL 30 MG CAPSULE.DR PO SCH (08:12)
[2019-06-21] MEDS: FERROUS SULFATE 325 MG TABLET. PO SCH (08:12)
[2019-06-21] MEDS: SENNOSIDES/DOCUSATE 8.6/50MG TABLET. PO SCH (08:12)
--- NOTE | 2019-06-21 08:19 | NUR ---
multivitamin not given because duplicate order
[2019-06-21] MEDS ORDERED: CHOLECALCIFEROL (VITAMIN D3) 1,000 UNIT TABLET PO SCH (09:00)
[2019-06-21] MEDS ORDERED: MULTIVITAMIN with MINERAL TABLET. PO SCH ×2 (09:00)
--- NOTE | 2019-06-21 09:56 | PDOC ---
PROGRESS NOTES Subjective Subjective Denies acute complaints this AM. Ambulating halls without significant problem. Initial programming completed yesterday by manufacturer representative with good coverage reported. Objective Objective Vital Signs Date Time Temp Pulse Resp B/P (MAP) Pulse Ox O2 Delivery O2 Flow Rate FiO2 06/21/19 06:17 18 Room Air 06/21/19 05:14 95 06/21/19 05:12 98.1 110 119/67 (84) 98.1 06/20/19 16:42 97.0 Intake and Output 06/21/19 07:00 Intake Total 2710 ml Output Total 425 ml Balance 2285 ml Intake Oral 1460 ml IV Total 1250 ml Output Stool Total 400 ml Estimated Blood Loss 25 ml # Voids 2 Physical Exam Physical Exam AAOx4, NAD, SALAS 5/5, dressings with some shadow, otherwise dry and intact Assessment Assessment POD 1 removal and replacement of thoracic spinal cord stimulation paddle lead and generator Plan Plan of Care -appears to be recovering well thus far -d/c home today with standard post-op restrictions -follow up in two weeks [phone] Comment Review of Relevant I have reviewed the following items shon (where applicable) has been applied. Labs Laboratory Tests Test 06/20/19 07:34 06/20/19 14:29 06/20/19 16:32 06/20/19 21:29 Glucose (Fingerstick) 118 mg/dL (70-99) 188 mg/dL (70-99) 190 mg/dL (70-99) 174 mg/dL (70-99) Test 06/21/19 06:39 Glucose (Fingerstick) 171 mg/dL (70-99) Laboratory Tests Test 06/20/19 14:29 06/20/19 16:32 06/20/19 21:29 06/21/19 06:39 Glucose (Fingerstick) 188 mg/dL (70-99) 190 mg/dL (70-99) 174 mg/dL (70-99) 171 mg/dL (70-99) Medications Current Medications Ondansetron HCl (Zofran) 4 mg PRN Q6HRS PRN IV NAUSEA/VOMITING; Start 06/20/19 at 07:00; Stop 06/20/19 at 16:39; Status DC Fentanyl Citrate (Fentanyl 2ml Vial) 25 mcg PRN Q5MIN PRN IV MILD PAIN 1-3; Start 06/20/19 at 07:00; Stop 06/20/19 at 16:39; Status DC Fentanyl Citrate (Fentanyl 2ml Vial) 50 mcg PRN Q5MIN PRN IV MODERATE TO SEVERE PAIN Last administered on 06/20/19at 15:00; Start 06/20/19 at 07:00; Stop 06/20/19 at 16:39; Status DC Ringer's Solution 1,000 ml @ 30 mls/hr Q24H IV Last administered on 06/20/19at 07:41; Start 06/20/19 at 07:00; Stop 06/20/19 at 16:39; Status DC Lidocaine HCl (Xylocaine-Mpf 1% 2ml Vial) 2 ml PRN 1X PRN ID PRIOR TO IV START; Start 06/20/19 at 07:00; Stop 06/20/19 at 16:39; Status DC Prochlorperazine Edisylate (Compazine) 5 mg PACU PRN PRN IV NAUSEA, MRX1; Start 06/20/19 at 07:00; Stop 06/20/19 at 16:39; Status DC Vancomycin HCl 250 ml @ 250 mls/hr 1X PREOP PRN IV PRIOR TO PROCEDURE Last administered on 06/20/19at 10:34; Start 06/20/19 at 06:00; Stop 06/20/19 at 18:00; Status DC Insulin Human Lispro (HumaLOG VIAL for OP,RR ONLY) 0-10 units PRN Q1HR PRN SQ PER PROTOCOL Last administered on 06/20/19at 15:00; Start 06/20/19 at 06:45; Stop 06/21/19 at 06:44; Status DC Gelatin (Gelfoam Size 100) 1 each STK-MED ONCE .ROUTE ; Start 06/20/19 at 07:30; Stop 06/20/19 at 07:30; Status DC Bupivacaine HCl (Sensorcaine Mpf 0.5%) 30 ml STK-MED ONCE .ROUTE ; Start 06/20/19 at 07:30; Stop 06/20/19 at 07:30; Status DC Lidocaine/ Epinephrine (LIDOCAINE 1%-EPI 1:100,000 Multi-Dose) 20 ml STK-MED ON CE .ROUTE Last administered on 06/20/19at 12:40; Start 06/20/19 at 07:30; Stop 06/20/19 at 07:30; Status DC Thrombin 20,000 unit STK-MED ONCE TP ; Start 06/20/19 at 07:30; Stop 06/20/19 at 07:30; Status DC Bacitracin 95386 unit/Sodium Chloride 1,000 ml @ 1,000 mls/hr 1X ONCE IRR Last administered on 06/20/19at 09:56; Start 06/20/19 at 07:45; Stop 06/20/19 at 08:44; Status DC Dexamethasone Sodium Phosphate (Decadron) 20 mg STK-MED ONCE .ROUTE ; Start 06/20/19 at 08:18; Stop 06/20/19 at 08:18; Status DC Lidocaine HCl (Lidocaine Pf 2% Vial) 5 ml STK-MED ONCE .ROUTE ; Start 06/20/19 at 08:18; Stop 06/20/19 at 08:18; Status DC Ondansetron HCl (Zofran) 4 mg STK-MED ONCE .ROUTE ; Start 06/20/19 at 08:18; Stop 06/20/19 at 08:18; Status DC Propofol 20 ml @ As Directed STK-MED ONCE IV ; Start 06/20/19 at 08:18; Stop 06/20/19 at 08:18; Status DC Remifentanil HCl (Ultiva) 2 mg STK-MED ONCE IV ; Start 06/20/19 at 08:18; Stop 06/20/19 at 08:19; Status DC Rocuronium [place] (Zemuron) 50 mg STK-MED ONCE .ROUTE ; Start 06/20/19 at 08:18; Stop 06/20/19 at 08:19; Status DC Propofol 50 ml @ As Directed STK-MED ONCE IV ; Start 06/20/19 at 08:23; Stop 06/20/19 at 08:23; Status DC Succinylcholine Chloride (Anectine) 200 mg STK-MED ONCE .ROUTE ; Start 06/20/19 at 08:28; Stop 06/20/19 at 08:28; Status DC Fentanyl Citrate (Fentanyl 2ml Vial) 100 mcg STK-MED ONCE .ROUTE ; Start 06/20/19 at 08:29; Stop 06/20/19 at 08:29; Status DC Phenylephrine HCl (Thong-Synephrine Inj) 10 mg STK-MED ONCE .ROUTE ; Start 06/20/19 at 08:30; Stop 06/20/19 at 08:30; Status DC Glycopyrrolate (Robinul) 1 mg STK-MED ONCE .ROUTE ; Start 06/20/19 at 09:33; Stop 06/20/19 at 09:33; Status DC Neostigmine Methylsulfate (Neostigmine Methylsulfate) 5 mg STK-MED ONCE .ROUTE ; Start 06/20/19 at 09:34; Stop 06/20/19 at 09:34; Status DC Famotidine (Pepcid Vial) 20 mg STK-MED ONCE .ROUTE ; Start 06/20/19 at 09:36; Stop 06/20/19 at 09:36; Status DC Sevoflurane (Ultane) 90 ml STK-MED ONCE IH ; Start 06/20/19 at 11:35; Stop 06/20/19 at 11:36; Status DC Propofol 50 ml @ As Directed STK-MED ONCE IV ; Start 06/20/19 at 12:29; Stop 06/20/19 at 12:29; Status DC Multivitamins (Thera M Plus) 1 tab DAILY PO Last administered on 06/21/19at 08:16; Start 06/21/19 at 09:00; Stop 06/21/19 at 09:01; Status DC Calcium/Vitamin D (Oscal D 500mg/ 200uts) 1 tab BIDWMEALS PO Last administered on 06/21/19at 08:16; Start 06/20/19 at 17:00 Ferrous Sulfate (Feosol) 325 mg BIDWMEALS PO Last administered on 06/21/19at 08:16; Start 06/20/19 at 17:00 Acetaminophen (Tylenol) 650 mg PRN Q6HRS PRN PO MILD PAIN / TEMP; Start 06/20/19 at 13:00 Al Hydroxide/Mg Hydroxide (Mylanta Plus Xs) 30 ml PRN Q3HRS PRN PO HEARTBURN / GAS; Start 06/20/19 at 13:00 Calcium Carbonate/ Glycine (Tums) 500 mg PRN Q3HRS PRN PO INDIGESTION; Start 06/20/19 at 13:00 Diphenhydramine HCl (Benadryl) 25 mg PRN Q6HRS PRN PO ITCHING; Start 06/20/19 at 13:00 Diphenhydramine HCl (Benadryl) 25 mg PRN Q6HRS PRN IV ITCHING; Start 06/20/19 at 13:00 Zolpidem Tartrate (Ambien) 5 mg PRN QHS PRN PO INSOMNIA, MAY REPEAT IN 1HR; Start 06/20/19 at 13:00 Naloxone HCl (Narcan) 0.1 mg PRN Q2MIN PRN IV ADMIN; Start 06/20/19 at 13:00 Sodium Chloride (Normal Saline Flush) 3 ml QSHIFT PRN IV AFTER MEDS AND BLOOD D RAWS; Start 06/20/19 at 13:00 Naloxone HCl (Narcan) 0.4 mg PRN Q2MIN PRN IV SEE INSTRUCTIONS; Start 06/20/19 at 13:00 Sodium Chloride 1,000 ml @ 25 mls/hr Q24H IV Last administered on 06/20/19at 16:42; Start 06/20/19 at 12:50 Oxycodone/ Acetaminophen (Percocet 5/325) 1 tab PRN Q4HRS PRN PO MILD PAIN, 1ST CHOICE; Start 06/20/19 at 13:00 Oxycodone/ Acetaminophen (Percocet 5/325) 2 tab PRN Q4HRS PRN PO MODERATE PAIN, SEVERE PAIN Last administered on 06/21/19at 05:14; Start 06/20/19 at 13:00 Methocarbamol (Robaxin) 750 mg TID PO Last administered on 06/21/19at 08:16; Start 06/20/19 at 14:00 Senna/Docusate Sodium (Senna Plus) 1 tab BID PO Last administered on 06/21/19at 08:16; Start 06/20/19 at 21:00 Docusate Sodium (Colace) 100 mg BID PO Last administered on 06/21/19at 08:16; Start 06/20/19 at 21:00 Ondansetron HCl (Zofran) 4 mg PRN Q6HRS PRN IV NAUESA, 1ST CHOICE; Start 06/20/19 at 13:00 Fentanyl Citrate (Fentanyl 2ml Vial) 50 mcg PRN Q1HR PRN IV SEVERE PAIN 7-10 Last administered on 06/21/19at 02:32; Start 06/20/19 at 13:00 Fentanyl Citrate (Fentanyl 2ml Vial) 25 mcg PRN Q1HR PRN IV SEVERE PAIN 7-10; Start 06/20/19 at 13:00 Amitriptyline HCl (Elavil) 25 mg QHS PO Last administered on 06/20/19 20:40; Start 06/20/19 at 21:00 Vitamin D (Vitamin D3) 2,000 unit DAILY PO Last administered on 06/21/19 08:16; Start 06/21/19 at 09:00 Fentanyl (Duragesic 50mcg/ Hr Patch) 1 patch Q72H TD Last administered on 06/20/19 16:42; Start 06/20/19 at 13:00 Fluticasone Propionate (Flonase) 2 spray PRN DAILY PRN NS ALLERGIES Last administered on 06/21/19 08:44; Start 06/20/19 at 13:00 Hydrochlorothiazide (Microzide) 12.5 mg DAILY PO ; Start 06/20/19 at 14:00 Levothyroxine Sodium (Synthroid) 25 mcg DAILY06 PO Last administered on 06/21/19at 06:37; Start 06/21/19 at 07:30 Metformin HCl (Glucophage) 1,000 mg BIDWMEALS PO Last administered on 06/21/19 08:16; Start 06/20/19 at 17:00 Metoprolol Succinate (Toprol Xl) 50 mg HS PO ; Start 06/20/19 at 21:00 Diclofenac Sodium (Voltaren) 75 mg BID PO Last administered on 06/21/19 08:16; Start 06/20/19 at 21:00 Duloxetine HCl (Cymbalta) 60 mg DAILY PO Last administered on 06/21/19 08:16; Start 06/20/19 at 14:00 Lactobacillus Rhamnosus (Culturelle) 1 cap PRN DAILY PRN PO UPSET STOMACH; Start 06/20/19 at 21:00 Multivitamins (Thera M Plus) 1 tab DAILY PO ; Start 06/21/19 at 09:00 Non-Formulary Medication (Naloxone HCl (Narcan)) 4 mg 1X NS ; Start 06/20/19 at 13:00; Status UNV Non-Formulary Medication (Olmesartan Medoxomil (Benicar)) 20 mg PRN 1X PRN PO ELEVATED BP, SEE COMMENTS; Start 06/20/19 at 13:00; Status UNV Pantoprazole Sodium (Protonix) 40 mg PRN DAILY PRN PO GI UPSET; Start 06/21/19 at 07:30 Pregabalin (Lyrica) 300 mg BID PO Last administered on 06/21/19at 08:16; Start 06/20/19 at 21:00 Famotidine (Pepcid) 20 mg QHS PO Last administered on 06/20/19at 20:40; Start 06/20/19 at 21:00 Fentanyl Citrate (Fentanyl 2ml Vial) 100 mcg STK-MED ONCE .ROUTE ; Start 06/20/19 at 13:54; Stop 06/20/19 at 13:55; Status DC Insulin Human Lispro (HumaLOG VIAL for OP,RR ONLY) 0-10 units PRN Q1HR PRN SQ PER PROTOCOL; Start 06/20/19 at 15:00; Stop 06/21/19 at 14:59 Active Scripts Active Cyclobenzaprine Hcl 10 Mg Tablet 1 Tab PO TID PRN Reported Naproxen 500 Mg Tablet.dr 1 Tab PO PRN BID PRN Vitamin D3 (Cholecalciferol (Vitamin D3)) 1,000 Unit Tablet 2,000 Unit PO DAILY Narcan (Naloxone HCl) 4 Mg [place] 4 Mg NS 1X Amitriptyline Hcl 25 Mg Tablet 25 Mg PO QHS Lyrica (Pregabalin) 150 Mg Capsule 2 Cap PO BID Benicar (Olmesartan Medoxomil) 5 Mg Tablet 20 Mg PO PRN 1X PRN Diclofenac Sodium 75 Mg Tablet.dr 1 Tab PO BID Probiotic Acidophilus Beads (L.acidoph/B.long/B.plant/B.lac) 1 Each Capsule 1 Each PO PRN PRN Metformin Hcl 500 Mg Tablet 1,000 Mg PO BID Multivitamins (Multivitamin) 1 Each Tablet 1 Tab PO DAILY Hydrochlorothiazide Capsule (Hydrochlorothiazide) 12.5 Mg Capsule 1 Cap PO DAILY Ranitidine Hcl 150 Mg Tablet 1 Tab PO HS Fluticasone Propionate Nasal [place] (Fluticasone Propionate) 16 Gm [place].susp 2 [place] NS PRN DAILY PRN Levothyroxine Sodium 25 Mcg Tablet 25 Mcg PO DAILYAC FENTANYL 50mcg/hr (Fentanyl) 1 Each Patch.td72 1 Patch TD Q72H Cymbalta (Duloxetine Hcl) 60 Mg Capsule.dr 60 Mg PO HS Ondansetron Odt (Ondansetron) 4 Mg Tab.rapdis 1 Tab PO PRN Q6-8HRS Percocet 5-325 Mg Tablet (Oxycodone/Acetaminophen) 1 Each Tablet 1-2 Tab PO PRN Q6HRS PRN Omeprazole 20 Mg Capsule.dr 40 Mg PO PRN DAILY PRN Metoprolol Succinate ( Xl ) (Metoprolol Succinate) 25 Mg Tab.er.24h 50 Mg PO HS Vitals/I & O Vital Sign - Last 24 Hours 06/20/19 06/20/19 06/20/19 06/20/19 13:00 13:15 13:15 13:25 Temp 97.2 97.2 97.2 97.2 Pulse 92 84 Resp 16 17 18 B/P (MAP) 163/89 163/65 Pulse Ox 100 99 99 O2 Delivery Simple Mask Simple Mask Mask Simple Mask O2 Flow Rate 8 6 6 8.0 06/20/19 06/20/19 06/20/19 06/20/19 13:30 13:45 13:45 14:00 Temp 97.2 97.2 97.2 97.2 97.2 97.2 Pulse 84 90 94 Resp 18 20 20 20 B/P (MAP) 184/86 157/84 156/83 Pulse Ox 98 99 99 88 O2 Delivery Simple Mask Simple Mask Room Air Room Air O2 Flow Rate 6 6 8.0 06/20/19 06/20/19 06/20/19 06/20/19 14:06 14:15 14:30 14:45 Temp 97.2 97.2 97.6 97.2 97.2 97.6 Pulse 92 94 98 Resp 20 18 20 20 B/P (MAP) 137/63 126/55 125/58 Pulse Ox 90 98 98 94 O2 Delivery Nasal Cannula Nasal Cannula Nasal Cannula Nasal Cannula O2 Flow Rate 2.0 3 3 3 06/20/19 06/20/19 06/20/19 06/20/19 15:00 15:00 15:15 15:30 Temp 97.2 97.6 98.1 97.2 97.6 98.1 Pulse 98 89 94 Resp 20 20 20 20 B/P (MAP) 124/53 122/52 132/74 (93) Pulse Ox 97 98 97 97 O2 Delivery Nasal Cannula Nasal Cannula Nasal Cannula Nasal Cannula O2 Flow Rate 3.0 3.0 3.0 2.0 06/20/19 06/20/19 06/20/19 06/20/19 15:45 16:00 16:15 16:30 Temp 98.0 98.0 Pulse 92 Resp 18 B/P (MAP) 124/74 (91) 114/71 (85) 126/73 (90) 129/72 (91) Pulse Ox 98 O2 Delivery Nasal Cannula O2 Flow Rate 2.0 06/20/19 06/20/19 06/20/19 06/20/19 16:42 16:42 17:00 18:08 Temp 97.4 97.9 97.4 97.9 Pulse 88 105 Resp 18 18 20 B/P (MAP) 116/96 (103) 120/84 (96) Pulse Ox 97 97 96 O2 Delivery Room Air Room Air Room Air Room Air O2 Flow Rate 97.0 06/20/19 06/20/19 06/20/19 06/20/19 18:33 20:05 20:30 20:44 Resp 14 O2 Delivery Room Air Room Air Room Air Room Air 06/20/19 06/20/19 06/20/19 06/21/19 23:23 23:26 23:26 01:59 Temp 97.9 97.9 Pulse 105 105 Resp 18 18 B/P (MAP) 109/64 (79) 109/64 Pulse Ox 95 95 O2 Delivery Room Air Room Air Room Air 06/21/19 06/21/19 06/21/19 06/21/19 02:32 03:02 03:10 05:12 Temp 98.1 98.1 98.1 98.1 Pulse 104 110 Resp 18 18 18 18 B/P (MAP) 117/72 (87) 119/67 (84) Pulse Ox 95 95 95 O2 Delivery Room Air Room Air Room Air Room Air 06/21/19 06/21/19 05:14 06:17 Resp 18 18 Pulse Ox 95 O2 Delivery Room Air Room Air Intake and Output 06/20/19 06/20/19 06/21/19 15:00 23:00 07:00 Intake Total 1810 ml 900 ml Output Total 25 ml 400 ml Balance -25 ml 1410 ml 900 ml AMY ENGEL MD Jun 21, 2019 09:56
[2019-06-21] MEDS ORDERED: METH-38 PO (10:19)
[2019-06-21] MEDS ORDERED: SENN-37 PO (10:20)
[2019-06-21] MEDS ORDERED: OXYC1TAB15 PO (10:21)
[2019-06-21 11:00] VITALS: BP 113/64
--- NOTE | 2019-06-21 11:06 | NUR ---
Discharge instructions given with prescriptions. Answered questions and concerns. Verbalized understanding. Pt discharged home accompanied by spouse.
--- NOTE | 2019-06-22 18:06 | PATHOLOGY ---
[facility] Accession Number: [id number] . 01 Material submitted: . vertebral column - THORACIC LAMINECTOMY . 01 Clinician provided ICD-10: y . 01 Clinical history: . Kassi, migrational spinal cord . 02 Diagnosis: Segments of fibrocartilaginous, adipose, and skeletal muscle tissue and bone, thoracic laminectomy: - Focal degenerative changes fibrocartilaginous tissues. - Segments of bone focally containing mildly hypercellular hematopoietic marrow. (JPM:rock picker; 06/22/2019) R/06/22/2019 . 02 Comment: There is no evidence of an acute inflammatory process or malignancy. (JPM:rock picker; 06/22/2019) . 02 Electronically signed: . Casey Suarez MD, Pathologist NPI- [id number] . 01 Gross description: . The specimen is received in formalin, labeled "Dina Codie, thoracic laminectomy", are multiple irregular fragments of lawson-yellow and gritty tissue possibly admixed with bone spicule measuring 5.0 x 4.3 x 1.0 cm in aggregate. Representatively submitted in A1, after decalcification. ([facility]; 06/21/2019) SHS/SHS . 02 Pathologist provided ICD-10: M54.9 . 02 CPT . 353349, [id number] Specimen Comment: A courtesy copy of this report has been sent to Specimen Comment: [phone], . Specimen Comment: Report sent to / DR VAZ Performed at: [address], [place], [place] [id number] MD Zain Montesinos MD Phone: [phone] Performed at: 02 [facility] [address] [place], [place] [id number] MD Casey Suarez MD Phone: [phone]
--- NOTE | 2019-06-28 10:43 | OP ---
DATE OF SURGERY: 06/20/2019 SURGEON: Roberth Engel MD MANAGER PUBLIC: Jessica. PREOPERATIVE DIAGNOSES: Thoracic spinal cord stimulator lead migration, back pain, leg pain. POSTOPERATIVE DIAGNOSES: Thoracic spinal cord stimulator lead migration, back pain, leg pain. PROCEDURE: Removal of spinal cord stimulator system lead and generator with a T9 bilateral laminectomy and partial T8 bilateral laminectomy for placement of a paddle lead spinal cord stimulator with tunneling of the lead wires and connection to spinal cord stimulator lead pulse generator. Intraoperative use of neuro monitoring. ANESTHESIA: General. COMPLICATIONS: None intraprocedurally. INDICATIONS FOR THE PROCEDURE: The patient is a 59-year-old female who had prior placement of a thoracic spinal cord stimulator with benefit regarding back and leg pain. This system was becoming ineffective and was noted on imaging that the spinal cord stimulator lead had migrated caudally. It was felt that she would benefit from removal of the old system with placement of a new system with a paddle lead. Please refer to the patient's chart for additional details. DESCRIPTION OF PROCEDURE: After informed consent was obtained, the patient was brought into the operating room. She was placed under general anesthesia and was placed in the prone position on the Jose De Jesus table. All pressure points were checked and padded appropriately. The back including all prior incisions in thoracic region was prepped and draped in the usual sterile fashion. Fluoroscopy was utilized to specifically localize location of the existing hardware, particularly with regard to the anchors. A prior old incision in the lumbar region was reopened with a 10-blade scalpel. All holes were dissected free from the underlying scar tissue and subsequently released. The spinal cord stimulator leads were then gently removed from the epidural region without difficulty. Once this was complete, the prior generator incision was reopened with a 10-blade scalpel and dissection was carried out to the generator in the pocket and this was subsequently removed from the prior pocket. The lead wires were then sectioned and removed in their entirety as well as the pulse generator leads were passed off to nursing for proper disposal. After this was complete, both wounds were generously irrigated with antibiotic irrigation. The lumbar incision was closed with 0 Vicryl in a simple interrupted fashion and the subcutaneous tissues were reapproximated with 2-0 Vicryl in interrupted inverted fashion. Skin was reapproximated with 4-0 Vicryl in a running subcuticular fashion. Fluoroscopy was utilized to localize the region of T9 through T7. An incision was made over the region of the spinous process of T8 and T9. This incision was made with a 10-blade scalpel. Monopolar electrocautery was utilized to dissect the avascular midline to the spinous processes of T8 and T9 and bilaterally across the lamina at this location. Level was again verified with fluoroscopy prior to the initiation of laminectomy. Laminectomy was performed bilaterally at T9 and bilaterally at the inferior portion of T8. The Suarez paddle lead was gently inserted in the epidural space and fluoroscopy was utilized to localize this region to the thoracic 7. This was connected to a temporary stimulator lead and stimulation was noted to produce results bilaterally with verification from neuro monitoring. The paddle lead was noted to be across the body of thoracic 7, verified with fluoroscopy. Stimulation was reduced slightly increased results on the right, which correlated to the most severe side of the patient's pain. Once the paddle lead was in place, anchors were instituted and secured to the adjacent fascia. A passer was utilized to create a subcutaneous trajectory from the thoracic incision to the prior pulse generator incision. Wires were then tunneled in this fashion using the passer to the generator incision. The new pulse generator was brought into the field and connected to the distal lead wires and inserted into the subcutaneous generator pocket and secured with a silk suture. Impedances were noted to be within normal limits. The wounds were then generously irrigated with antibiotic irrigation prior to the final closure. At the thoracic incision, the muscles and fascia were reapproximated with 0 Vicryl in a simple interrupted fashion. Subcutaneous tissues were reapproximated with 2-0 Vicryl in interrupted inverted fashion. The skin was reapproximated with 4-0 Vicryl in a running subcuticular fashion. The capsule of the generator pocket was closed with 2-0 Vicryl in interrupted inverted fashion and the subcutaneous tissue reapproximated with 2-0 Vicryl in interrupted inverted fashion and the skin was reapproximated with 4-0 Vicryl in a running subcuticular fashion. All 3 incisions, Mastisol and Steri-Strips were applied and the wounds were dressed with Telfa and Tegaderm. At the end of procedure, all needle and sponge counts were correct x 2. Neuro monitoring remained at least baseline throughout the entire duration of the procedure. The patient was extubated in the operating room and taken to recovery in stable condition. There were no intraprocedural complications apparent. ROBERTH ENGEL MD DR: CLINTON/christine JOB#: [id number] / [id number]
== END 2019-06-21 11:06 | disposition home or self-care (01) | DRG 30 ==
LOC: SURG 06:58 → 4 SOUTHEST 12:44
PROVIDERS: ADMIT Neurological Surgery; ATTEND Neurological Surgery
PROC: 00HV0MZ Insertion of Neurostimulator Lead into Spinal Cord, Open Approach (ICD-10-PCS; 2019-06-20)
PROC: 0JPT0MZ Removal of Stimulator Generator from Trunk Subcutaneous Tissue and Fascia, Open Approach (ICD-10-PCS; 2019-06-20)
PROC: 4A11X4G Monitoring of Peripheral Nervous Electrical Activity, Intraoperative, External Approach (ICD-10-PCS; 2019-06-20)
PROC: 00PV0MZ Removal of Neurostimulator Lead from Spinal Cord, Open Approach (ICD-10-PCS; principal; 2019-06-20 08:30)
PROC: 0JH70MZ Insertion of Stimulator Generator into Back Subcutaneous Tissue and Fascia, Open Approach (ICD-10-PCS; 2019-06-20 08:30)
DX: T85.122A Displacement of implanted electronic neurostimulator of spinal cord electrode (lead), initial encounter (principal); E11.9 Type 2 diabetes mellitus without complications; I10 Essential (primary) hypertension; M79.606 Pain in leg, unspecified; M54.9 Dorsalgia, unspecified; Y83.8 Other surgical procedures as the cause of abnormal reaction of the patient, or of later complication, without mention of misadventure at the time of the procedure; Y92.89 Other specified places as the place of occurrence of the external cause; Z82.49 Family history of ischemic heart disease and other diseases of the circulatory system; Z82.3 Family history of stroke; Z81.1 Family history of alcohol abuse and dependence; Z79.84 Long term (current) use of oral hypoglycemic drugs; Z79.899 Other long term (current) drug therapy
CPT/HCPCS: 76000; 82962; 88304; 88311; A7015; C1713; C1820; J0330; J1100; J1815; J2001; J2405; J2704; J2710; J3010; J3370; J3490; J7030; 97116; 97530; 97535; G0378

== ENCOUNTER → 2019-07-31 | Outpatient (CLI) | payer MEDICARE ==
[~2019-07-31] MED LIST changes: +BUPIVACAINE MPF 0.25% 10 ML VIAL. ONE; +IOHEXOL 180 MG/ML 10 ML VIAL. ONE; +METH-38 PO; +SENN-37 PO; +methylPREDNISolone ACETATE 40 MG/ML VIAL. ONE
--- NOTE | 2019-08-01 01:04 | PAIN ---
DATE OF SERVICE: 07/31/2019 PROGRESS NOTE FOR PAIN CLINIC DIAGNOSES: 1. Lumbar radiculopathy with post-lumbar laminectomy syndrome and lumbar degenerative disk disease with spinal cord stimulator paddle lead placement. 2. Cervical radiculopathy with cervical degenerative disk disease. 3. Myofascial pain. 4. Right shoulder joint pain with osteoarthritis. HISTORY OF PRESENT ILLNESS: The patient is a 59-year-old female who returns for followup status post left lateral epicondylar injection with very good results; this was on 05/08/2019. The patient reports about 90% improvement. She had a spinal cord stimulator paddle lead placed as her original leads were migrating, this was done about 6 weeks ago and she is doing much better with that; however, chief complaint today is pain in the base of the shoulder and the neck on the left side radiating since the surgery, presumably from some positioning during the surgery, but undetermined. The patient reports the pain has been radiating into the left arm and shoulder, mostly in the shoulder itself, some in the elbow also. The patient reports no new motor or sensory deficits, no new changes. The pain is stabbing, aching, sharp and shooting in the left neck and shoulder, but without significant loss of motor function nor fatigability with the left arm. The patient reports it awakens her from sleep about every 4 hours at night. She needs to reposition to get back to sleep. The patient reports no other changes. PHYSICAL EXAMINATION: VITAL SIGNS: The patient's blood pressure is 147/94, pulse 91, respirations 18, temperature 98.2 degrees Fahrenheit, height is 5 feet 5 inches, weight is 201 pounds. GENERAL: The patient is awake, alert and appropriate, very pleasant demeanor. The patient is accompanied by her spouse. HEENT: Shows normocephalic, atraumatic. Extraocular movements are intact and symmetrical. Oral cavity: Mucous membranes moist and pink. Dentition is intact. NECK: Shows anterior throat supple without palpable lymphadenopathy noted. Swallow reflex symmetrical. CHEST: Shows normal on inspection. Breath sounds are clear to auscultation bilaterally. HEART: Shows S1, S2 clear. No murmurs auscultated. ABDOMEN: Soft, nontender, nondistended. No palpable organomegaly is noted. No rebound or guarding demonstrated. BACK: Shows spine grossly in the midline. Normal appearing thoracic kyphosis and lumbar lordotic curvatures. There is a well-healed surgical scar noted in the mid thoracic distribution. The patient has easily palpable spinal cord stimulator, which is over the right superior lateral gluteus, which is nontender and with well-healed surgical scar as well. The patient's shoulders and upper extremities show deep tendon reflexes 2+ in the biceps and triceps tendons. The patient's left shoulder shows significant tenderness over the acromioclavicular joint on the left side, mostly in the anterior superior aspect of the joint, less so on the posterior aspect. No tenderness on the right side. The patient shows good rotational motion of the shoulders, no loss of strength on resistance with full rotation both passively and actively. Shoulder shrug is strong and intact without loss of strength on resistance as is abduction of shoulder to 90 degrees without loss as well. Restoration Ecologist strength is 5/5 bilaterally as is bicep and tricep flexion. Peripheral pulses are 2+ radial distribution. No peripheral edema is noted bilaterally. Options were discussed with the patient. The patient's old chart was reviewed as her current medication regimen updated. Current review of systems updated today as well. We will proceed with a left acromioclavicular joint injection today with fluoroscopic guidance. Risks were again discussed including, but not limited to bleeding, infection, possibility of intravascular injection sequelae, spread of local anesthetic and numbness, side effects of steroid medication, exposure to fluoroscopy and poor results regarding pain control. The patient understands and wished to proceed. The patient will return to clinic in approximately 2 weeks for followup. She was counseled on return appointment, activity level and side effects to be aware of. DIAGNOSIS: Osteoarthritis, left shoulder acromioclavicular joint with shoulder joint pain. PROCEDURE: Left acromioclavicular joint injection using C-arm fluoroscopic guidance under sterile prep and drape using local anesthetic. MEDICATION INJECTED: Total of 3 mL of 0.25% bupivacaine 1 mL of contrast and 40 mg Depo-Medrol. CONDITION AT DISCHARGE: Stable. The patient tolerated procedure well, had no complications. TROY TERAN MD DR: IVETT/christine JOB#: [id number] / [id number]
== END ==
LOC: PNCL 11:33
PROVIDERS: ATTEND Anesthesiology
DX: M19.012 Primary osteoarthritis, left shoulder (principal); M51.16 Intervertebral disc disorders with radiculopathy, lumbar region; M96.1 Postlaminectomy syndrome, not elsewhere classified; M50.10 Cervical disc disorder with radiculopathy, unspecified cervical region; M79.18 Myalgia, other site
CPT/HCPCS: 20605; 77002; J1030; J3490; Q9965

== ENCOUNTER 2020-01-14 18:41 | Emergency (ER) | payer MEDICARE ==
[~2020-01-14] VITALS: Ht 162.6 cm; Wt 120.0 kg
[~2020-01-14 18:41] MED LIST changes: -BUPIVACAINE MPF 0.25% 10 ML VIAL. ONE; -IOHEXOL 180 MG/ML 10 ML VIAL. ONE; -OMEP20CA10 PO; +OMEP20CA16 PO; -RANI-348 PO; +RANI-369 PO; -methylPREDNISolone ACETATE 40 MG/ML VIAL. ONE
[2020-01-14] MEDS ORDERED: HYDROmorphone 2 MG/ML VIAL IM ONE (19:30)
[2020-01-14 19:53] LABS: BILIRUBIN,URINE NEGATIVE (NEG); CLARITY,URINE CLEAR; COLOR,URINE YELLOW; NITRITE,URINE NEGATIVE (NEG); PROTEIN,URINE NEGATIVE (NEG-TRACE); UROBILINOGEN,URINE 0.2 mg/dL (0.2 mg/dL)
[2020-01-14 19:57] LABS: RBC,URINE OCC /HPF (0-2); SQUAMOUS EPITHELIAL CELL,UR MANY /LPF
[2020-01-14 19:58] LABS: BACTERIA,URINE MODERATE /HPF (0-FEW)
[2020-01-14 19:59] LABS: YEAST,URINE PRESENT /HPF
[2020-01-14] MEDS ORDERED: LIDOCAINE (700MG/PATCH) PATCH. TD SCH (20:00)
[2020-01-14] MEDS ORDERED: NITR100C62 PO (20:09)
[2020-01-14] MEDS ORDERED: LIDO700A21 TP (20:09)
[2020-01-14] MEDS ORDERED: METH-38 PO (20:09)
[2020-01-14] MEDS ORDERED: FLUC150T PO (20:09)
--- NOTE | 2020-01-14 20:10 | PHYS DOC ---
Past Medical History Past Medical History: Diabetes-Type II, Endometriosis, Fibromyalgia, Hype rtension Additional Past Medical Histor: chronic pain (ANGELA SESAY) Past Surgical History: Tubal ligation, Other Additional Past Surgical Histo: KNEE REPAIR, PAIN STIMULATOR, BACK SURGERY, PINS IN RT WRIST (ANGELA SESAY) Smoking Status: Former Smoker Alcohol Use: None Drug Use: None (ANGELA SESAY) Adult General Chief Complaint Chief Complaint: BACK PAIN - NO INJURY HPI HPI Patient is a 59 year old F with chronic low back pain who is on Fentanyl patches and oxycodone at home and states that the pain has "flared up" over the last couple days and she couldn't get in to see her pain doctor. She denies any injury and denies any new radiation of pain. She had a prior lumbar surgery with hardware in the past after trauma falling from a horse. (ANGELA SESAY) Review of Systems Review of Systems Constitutional: Denies fever or chills HENT: Denies nasal congestion or sore throat Respiratory: Denies cough or shortness of breath Cardiovascular: Denies chest pain GI: Denies abdominal pain, nausea, vomiting, bloody stools or diarrhea : Denies dysuria or hematuria Musculoskeletal: Reports back pain Integument: Denies rash or skin lesions Neurologic: Denies headache, focal weakness or sensory changes All other systems were reviewed and found to be within normal limits, except as documented in this note. (ANGELA SESAY) Current Medications Current Medications Current Medications Medications (Trade) Dose Ordered Sig/Gary Start Time Stop Time Status Last Admin Dose Admin Hydromorphone HCl (Dilaudid) 1 mg 1X ONCE 01/14/20 19:30 01/14/20 19:31 DC 01/14/20 19:51 1 MG Lidocaine (Lidoderm) 1 patch DAILY 01/14/20 20:00 01/14/20 21:14 DC 01/14/20 19:52 1 PATCH Miscellaneous (Lidoderm Patch Removal) 1 ea QHS 01/15/20 21:00 01/14/20 21:14 DC (MINESH MORROW DO) Allergies Allergies Allergies Coded Allergies Type Severity Reaction Last Updated Verified Cephalexin Monohydrate Allergy Intermediate Itching 11/27/16 Yes Sulfa (Sulfonamide Antibiotics) Allergy Intermediate 11/27/16 Yes azithromycin Allergy Intermediate Hives 11/27/16 Yes codeine Allergy Intermediate Hives 11/27/16 Yes morphine Allergy Intermediate Hives 11/27/16 Yes aspirin Adverse Reaction Intermediate Nausea 11/27/16 Yes Uncoded Allergies Type Severity Reaction Last Updated Verified NO MRIS NONCONDITIONAL SPINAL STIM Allergy Severe 08/12/17 (MINESH MORROW DO) Physical Exam Physical Exam Constitutional: Well developed, well nourished, no acute distress, non-toxic appearance. Appears uncomfortable. HENT: Normocephalic, atraumatic, bilateral external ears normal, oropharynx moist, no oral exudates, nose normal. Neck: Normal range of motion, no tenderness, supple, no stridor. Cardiovascular:Heart rate regular rhythm, no murmur Lungs & Thorax: Bilateral breath sounds clear to auscultation Abdomen: Bowel sounds normal, soft, no tenderness, no masses, no pulsatile masses. Skin: Warm, dry, no erythema, no rash. Back: Perispinous pain to left of lumbar spine and to lateral L side. No CVA tenderness. Extremities: No tenderness, no cyanosis, no clubbing, ROM intact, no edema. Neurologic: Alert and oriented X 3, normal motor function, normal sensory function, no focal deficits noted. Psychologic: Affect normal, judgement normal, mood normal. (ANGELA SESAY) Current Patient Data Vital Signs Vital Signs Date Time Temp Pulse Resp B/P (MAP) Pulse Ox O2 Delivery O2 Flow Rate FiO2 01/14/20 20:30 92 16 142/81 (101) 98 Room Air 01/14/20 19:16 98.4 98.4 (MINESH MORROW DO) Lab Values Laboratory Tests Test 01/14/20 19:47 Urine Collection Type Unknown Urine Color Yellow Urine Clarity Clear Urine pH 5.0 (<5.0-8.0) Urine Specific Shallowater 1.020 (1.000-1.030) Urine Protein Negative mg/dL (NEG-TRACE) Urine Glucose (UA) Negative mg/dL (NEG) Urine Ketones (Stick) Negative mg/dL (NEG) Urine Blood Negative (NEG) Urine Nitrite Negative (NEG) Urine Bilirubin Negative (NEG) Urine Urobilinogen Dipstick 0.2 mg/dL (0.2 mg/dL) Urine Leukocyte Esterase Negative (NEG) Urine RBC Occ /HPF (0-2) Urine WBC 1-4 /HPF (0-4) Urine Squamous Epithelial Cells Many /LPF Urine Bacteria Moderate /HPF (0-FEW) Urine Mucus Mod /LPF Urine Yeast Present /HPF (MIENSH MORROW DO) EKG EKG [] (ANGELA SESAY) Radiology/Procedures Radiology/Procedures [] (ANGELA SESAY) Course & Med Decision Making Course & Med Decision Making Pt feeling better after IM Dilaudid and Lidoderm patch. Discussed UTI and yeast and will treat with Macrobid and Diflucan and Robaxin and Lidoderm patch. Pt to f/u with her pain or back doctor for further evaluation. She is sitting up straight and able to stand and transfer to chair at time of discharge. She has no signs of cauda equina. (ANGELA SESAY) Dragon Disclaimer Dragon Disclaimer This electronic medical record was generated, in whole or in part, using a voice recognition dictation system. (ANGELA SESAY) Departure Departure Impression: Primary Impression: Back pain Additional Impressions: UTI (urinary tract infection) Yeast UTI Disposition: 01 HOME, SELF-CARE Condition: IMPROVED Referrals: JIL VAZ APRN (PCP) Patient Instructions: Back Pain, Adult, [id number], Urinary Tract Infection, [id number] Additional Instructions: You will need to see your doctor regarding this flare up of your back pain. You do have a mild urinary tract infection and yeast infection today, which could be making the symptoms worse, so we will treat those as well. Push fluids and rest and return with any worsening symptoms. Scripts Methocarbamol (ROBAXIN-750) 750 Mg Tablet 1 TAB PO BID PRN for MUSCLE SPASMS for 14 Days, #28 TAB 0 Refills Prov: ANGELA SESAY 01/14/20 Lidocaine (Lidocaine PATCH ) 1 Each Adh..patch 1 EACH TP DAILY for FOR LOCAL PAIN for 14 Days, #14 PATCH REMOVE AFTER 12 HOURS Prov: ANGELA SESAY 01/14/20 Fluconazole (DIFLUCAN) 150 Mg Tablet 1 TAB PO ONCE, #1 TAB 1 Refill Prov: ANGELA ESSAY 01/14/20 Nitrofurantoin Monohyd/M-Cryst (MACROBID 100 MG CAPSULE) 100 Mg Capsule 1 CAP PO BID for 7 Days, #14 CAP 0 Refills Prov: ANGELA SESAY 01/14/20 Attending Signature Attending Signature I have reviewed the PA/REGULATORY LAW SPECIALIST's note and plan of care. I was available for consultation as needed during the patient's visit in the emergency department. I agree with the clinical impression, plan, and disposition. (MINESH MORROW DO) Problem Qualifiers ANGELA SESAY Jan 14, 2020 20:10 MINESH MORROW DO Jan 15, 2020 00:23
[2020-01-14 20:30] VITALS: BP 142/81
[2020-01-15] MEDS ORDERED: PATCH REMOVAL. MC SCH (21:00)
== END 2020-01-14 20:35 | disposition home or self-care (01) ==
LOC: ER 18:41
DX: B37.49 Other urogenital candidiasis (principal); E11.9 Type 2 diabetes mellitus without complications; I10 Essential (primary) hypertension; G89.29 Other chronic pain; Z87.891 Personal history of nicotine dependence; Z98.51 Tubal ligation status; Z98.890 Other specified postprocedural states; Z88.1 Allergy status to other antibiotic agents; Z88.2 Allergy status to sulfonamides; Z88.5 Allergy status to narcotic agent; Z88.6 Allergy status to analgesic agent
CPT/HCPCS: 81001; 87086; 96372; 99283; J1170

== ENCOUNTER 2020-01-20 18:28 | Emergency (ER) | payer MEDICARE ==
[~2020-01-20] VITALS: Ht 162.6 cm; Wt 120.0 kg
[~2020-01-20 18:28] MED LIST changes: +FLUC150T PO; +LIDO700A21 TP; +NITR100C62 PO
[2020-01-20] MEDS ORDERED: IV NORMAL SALINE 1000ML BAG 1,000 ML IV ONE (19:00)
[2020-01-20] MEDS ORDERED: ONDANSETRON PF 4 MG/2 ML VIAL. IV ONE (19:00)
[2020-01-20] MEDS ORDERED: fentaNYL PF VIAL 100 MCG/2 ML VIAL IV ONE (19:00)
[2020-01-20] MEDS ORDERED: KETOROLAC 30 MG/ML VIAL. IV ONE (19:00)
[2020-01-20 19:10] LABS: BILIRUBIN,URINE NEGATIVE (NEG); CLARITY,URINE CLOUDY; COLOR,URINE YELLOW; NITRITE,URINE NEGATIVE (NEG); PROTEIN,URINE NEGATIVE (NEG-TRACE); UROBILINOGEN,URINE 0.2 mg/dL (0.2 mg/dL)
[2020-01-20 19:15] LABS: BASO # 0.1 x10^3/uL (0.0-0.2); BASO % 1 % (0-3); EOS # 0.8 x10^3/uL (0.0-0.7); EOS % 10 % (0-3); HEMATOCRIT 37.2 % (36.0-47.0); HEMOGLOBIN 12.1 g/dL (12.0-15.5); LYMPH # 2.7 x10^3/uL (1.0-4.8); LYMPH % 36 % (24-48); MEAN CORPUSCULAR HEMOGLOBIN 28 pg (25-35); MEAN CORPUSCULAR HGB CONC 33 g/dL (31-37); MEAN CORPUSCULAR VOLUME 85 fL (79-100); MONO # 0.5 x10^3/uL (0.0-1.1); MONO % 6 % (0-9); NEUT # 3.6 x10^3/uL (1.8-7.7); NEUT % 47 % (31-73); PLATELET COUNT 205 x10^3/uL (140-400); RED BLOOD COUNT 4.39 x10^6/uL (3.50-5.40); RED CELL DISTRIBUTION WIDTH 18.5 % (11.5-14.5); WHITE BLOOD COUNT 7.6 x10^3/uL (4.0-11.0)
[2020-01-20 19:25] LABS: BACTERIA,URINE MANY /HPF (0-FEW); HYALINE CASTS, URINE OCCASIONAL /HPF; SQUAMOUS EPITHELIAL CELL,UR MANY /LPF
[2020-01-20 19:26] LABS: YEAST,URINE PRESENT /HPF
[2020-01-20 19:29] LABS: CALCIUM 9.2 mg/dL (8.5-10.1); CREATININE 1.3 mg/dL (0.6-1.0); GFR 51.1; POTASSIUM 3.9 mmol/L (3.5-5.1)
[2020-01-20 19:35] LABS: ALBUMIN 3.3 g/dL (3.4-5.0); ALBUMIN/GLOBULIN RATIO 0.8 (1.0-1.7); TOTAL BILIRUBIN 0.4 mg/dL (0.2-1.0); TOTAL PROTEIN 7.4 g/dL (6.4-8.2)
--- NOTE | 2020-01-20 19:54 | RAD ---
CT abdomen and pelvis without contrast. HISTORY: Right flank pain. CT scan the abdomen and pelvis was done without contrast. Comparison is made with a study from November 2015. There is linear scarring or atelectasis in the lung bases. There is no effusion. There is a small nodule on the left lung base without change from the old study. There is diffuse fatty infiltration of the liver. There is fatty sparing near the hilum. The fatty liver has developed since the old study. Spleen and adrenal glands are normal. A pancreatic lesion is not identified. There is no mass or hydronephrosis in the kidneys. A ureteral calculus is not identified. The appendix is normal. There is no bowel obstruction or ascites. The patient's had a hysterectomy. Patient's had previous lumbar fusion. IMPRESSION: 1. Diffuse fatty liver change. 2. No renal or ureteral calculus. 3. Normal appendix. 4. No bowel obstruction or other acute finding. PQRS Compliance Statement: One or more of the following individualized dose reduction techniques were utilized for this examination: 1. Automated exposure control 2. Adjustment of the mA and/or kV according to patient size 3. Use of iterative reconstruction technique Electronically signed by: Tarik Wiggins MD (01/20/2020 7:51 PM) [id number]
[2020-01-20] MEDS ORDERED: PHEN-318 PO (20:07)
--- NOTE | 2020-01-20 20:07 | PHYS DOC ---
Past Medical History Past Medical History: Diabetes-Type II, Endometriosis, Fibromyalgia, Hypertension, Hypothyroid Additional Past Medical Histor: chronic BACK pain Past Surgical History: Tubal ligation, Other Additional Past Surgical Histo: KNEE REPAIR, PAIN STIMULATOR, BACK SURGERY, PINS IN RT WRIST Smoking Status: Former Smoker Alcohol Use: Rarely Drug Use: None Adult General Chief Complaint Chief Complaint: FLANK PAIN HPI HPI Patient is a 59-year-old female with history of chronic pain who presents with dysuria. She was diagnosed with urinary tract infection by her primary care physician. She's been on a total of 2 antibiotics and is still having symptoms. She states recently the pain is gone to her flank. She denies any high fever chills or sweats. She's had no nausea or vomiting. She does state the pain has become intolerable. Review of Systems Review of Systems Constitutional: Denies fever or chills [] Eyes: Denies change in visual acuity, redness, or eye pain [] HENT: Denies nasal congestion or sore throat [] Respiratory: Denies cough or shortness of breath [] Cardiovascular: No additional information not addressed in HPI [] GI: Denies abdominal pain, nausea, vomiting, bloody stools or diarrhea [] : Per history of present illness[] Musculoskeletal: Denies back pain or joint pain [] Integument: Denies rash or skin lesions [] Neurologic: Denies headache, focal weakness or sensory changes [] Endocrine: Denies polyuria or polydipsia [] All other systems were reviewed and found to be within normal limits, except as documented in this note. Current Medications Current Medications Current Medications Medications (Trade) Dose Ordered Sig/[place] Start Time Stop Time Status Last Admin Dose Admin Fentanyl Citrate (Fentanyl 2ml Vial) 50 mcg 1X ONCE 01/20/20 19:00 01/20/20 19:03 DC 01/20/20 19:17 50 MCG Ketorolac Tromethamine (Toradol 30mg Vial) 30 mg 1X ONCE 01/20/20 19:00 01/20/20 19:03 DC 01/20/20 19:17 30 MG Ondansetron HCl (Zofran) 4 mg 1X ONCE 01/20/20 19:00 01/20/20 19:03 DC 01/20/20 19:17 4 MG Sodium Chloride 1,000 ml @ 1,000 mls/hr 1X ONCE 01/20/20 19:00 01/20/20 19:59 DC 01/20/20 19:16 1,000 MLS/HR Allergies Allergies Allergies Coded Allergies Type Severity Reaction Last Updated Verified Cephalexin Monohydrate Allergy Intermediate Itching 11/27/16 Yes Sulfa (Sulfonamide Antibiotics) Allergy Intermediate 11/27/16 Yes azithromycin Allergy Intermediate Hives 11/27/16 Yes codeine Allergy Intermediate Hives 11/27/16 Yes morphine Allergy Intermediate Hives 11/27/16 Yes aspirin Adverse Reaction Intermediate Nausea 11/27/16 Yes Uncoded Allergies Type Severity Reaction Last Updated Verified NO MRIS NONCONDITIONAL SPINAL STIM Allergy Severe 08/12/17 Physical Exam Physical Exam Constitutional: Well developed, well nourished, mild to moderate distress, non- toxic appearance. [] HENT: Normocephalic, atraumatic, bilateral external ears normal, oropharynx moist, no oral exudates, nose normal. [] Eyes: PERRLA, EOMI, conjunctiva normal, no discharge. [] Neck: Normal range of motion, no tenderness, supple, no stridor. [] Cardiovascular:Heart rate regular rhythm, no murmur [] Lungs & Thorax: Bilateral breath sounds clear to auscultation [] Abdomen: Bowel sounds normal, soft, no tenderness, no masses, no pulsatile masses. [] Skin: Warm, dry, no erythema, no rash. [] Back: No tenderness, no CVA tenderness. [] Extremities: No tenderness, no cyanosis, no clubbing, ROM intact, no edema. [] Neurologic: Alert and oriented X 3, normal motor function, normal sensory function, no focal deficits noted. [] Psychologic: Anxious[] Current Patient Data Vital Signs Vital Signs Date Time Temp Pulse Resp B/P (MAP) Pulse Ox O2 Delivery O2 Flow Rate FiO2 01/20/20 19:44 92 15 146/63 (90) 96 Room Air 01/20/20 18:41 98.0 98.0 Lab Values Laboratory Tests Test 01/20/20 18:32 01/20/20 19:05 Urine Collection Type Unknown Urine Color Yellow Urine Clarity Cloudy Urine pH 5.0 (<5.0-8.0) Urine Specific [place] >=1.030 (1.000-1.030) Urine Protein Negative mg/dL (NEG-TRACE) Urine Glucose (UA) Negative mg/dL (NEG) Urine Ketones (Stick) Negative mg/dL (NEG) Urine Blood Negative (NEG) Urine Nitrite Negative (NEG) Urine Bilirubin Negative (NEG) Urine Urobilinogen Dipstick 0.2 mg/dL (0.2 mg/dL) Urine Leukocyte Esterase Trace (NEG) Urine RBC 1-2 /HPF (0-2) Urine WBC 5-10 /HPF (0-4) Urine Squamous Epithelial Cells Many /LPF Urine Bacteria Many /HPF (0-FEW) Urine Hyaline Casts Occasional /HPF Urine Yeast Present /HPF White Blood Count 7.6 x10^3/uL (4.0-11.0) Red Blood Count 4.39 x10^6/uL (3.50-5.40) Hemoglobin 12.1 g/dL (12.0-15.5) Hematocrit 37.2 % (36.0-47.0) Mean Corpuscular Volume 85 fL (79-100) Mean Corpuscular Hemoglobin 28 pg (25-35) Mean Corpuscular Hemoglobin Concent 33 g/dL (31-37) Red Cell Distribution Width 18.5 % (11.5-14.5) H Platelet Count 205 x10^3/uL (140-400) Neutrophils (%) (Auto) 47 % (31-73) Lymphocytes (%) (Auto) 36 % (24-48) Monocytes (%) (Auto) 6 % (0-9) Eosinophils (%) (Auto) 10 % (0-3) H Basophils (%) (Auto) 1 % (0-3) Neutrophils # (Auto) 3.6 x10^3/uL (1.8-7.7) Lymphocytes # (Auto) 2.7 x10^3/uL (1.0-4.8) Monocytes # (Auto) 0.5 x10^3/uL (0.0-1.1) Eosinophils # (Auto) 0.8 x10^3/uL (0.0-0.7) H Basophils # (Auto) 0.1 x10^3/uL (0.0-0.2) Sodium Level 142 mmol/L (136-145) Potassium Level 3.9 mmol/L (3.5-5.1) Chloride Level 105 mmol/L (98-107) Carbon Dioxide Level 24 mmol/L (21-32) Anion Gap 13 (6-14) Blood Urea Nitrogen 22 mg/dL (7-20) H Creatinine 1.3 mg/dL (0.6-1.0) H Estimated GFR (Cockcroft-Gault) 51.1 BUN/Creatinine Ratio 17 (6-20) Glucose Level 135 mg/dL (70-99) H Calcium Level 9.2 mg/dL (8.5-10.1) Total Bilirubin 0.4 mg/dL (0.2-1.0) Aspartate Amino Transferase (AST) 34 U/L (15-37) Alanine Aminotransferase (ALT) 53 U/L (14-59) Alkaline Phosphatase 111 U/L (46-116) Total Protein 7.4 g/dL (6.4-8.2) Albumin 3.3 g/dL (3.4-5.0) L Albumin/Globulin Ratio 0.8 (1.0-1.7) L Lipase 86 U/L (73-393) Laboratory Tests 01/20/20 19:05 Laboratory Tests 01/20/20 19:05 EKG EKG [] Radiology/Procedures Radiology/Procedures [] Impressions: CT abdomen and pelvis without contrast. HISTORY: Right flank pain. CT scan the abdomen and pelvis was done without contrast. Comparison is made with a study from November 2015. There is linear scarring or atelectasis in the lung bases. There is no effusion. There is a small nodule on the left lung base without change from the old study. There is diffuse fatty infiltration of the liver. There is fatty sparing near the hilum. The fatty liver has developed since the old study. Spleen and adrenal glands are normal. A pancreatic lesion is not identified. There is no mass or hydronephrosis in the kidneys. A ureteral calculus is not identified. The appendix is normal. There is no bowel obstruction or ascites. The patient's had a hysterectomy. Patient's had previous lumbar fusion. IMPRESSION: 1. Diffuse fatty liver change. 2. No renal or ureteral calculus. 3. Normal appendix. 4. No bowel obstruction or other acute finding. Course & Med Decision Making Course & Med Decision Making Pertinent Labs and Imaging studies reviewed. (See chart for details) [] Dragon Disclaimer Dragon Disclaimer This electronic medical record was generated, in whole or in part, using a voice recognition dictation system. Departure Departure Impression: Primary Impression: UTI (urinary tract infection) Disposition: 01 HOME, SELF-CARE Condition: STABLE Referrals: JIL VAZ APRN (PCP) Patient Instructions: Urinary Tract Infection Scripts Phenazopyridine Hcl (PYRIDIUM) 200 Mg Tablet 200 MG PO Q8HRS PRN for DYSURIA, #10 TAB Prov: JEFFY AARON DO 01/20/20 Problem Qualifiers Primary Impression: UTI (urinary tract infection) Urinary tract infection type: acute cystitis Hematuria presence: without hematuria Qualified Codes: N30.00 - Acute cystitis without hematuria JEFFY AARON DO Jan 20, 2020 20:07
[2020-01-20 20:12] VITALS: BP 141/64
== END 2020-01-20 20:17 | disposition home or self-care (01) ==
LOC: ER 18:28
DX: N30.00 Acute cystitis without hematuria (principal); G89.29 Other chronic pain; E11.9 Type 2 diabetes mellitus without complications; I10 Essential (primary) hypertension; E03.9 Hypothyroidism, unspecified; Z87.891 Personal history of nicotine dependence; Z88.1 Allergy status to other antibiotic agents; Z88.2 Allergy status to sulfonamides; Z88.5 Allergy status to narcotic agent; Z88.6 Allergy status to analgesic agent
CPT/HCPCS: 36415; 74176; 80053; 81001; 83690; 85025; 96374; 96375; 99284; J1885; J2405; J3010; J7030

== ENCOUNTER 2020-01-27 23:19 | Emergency (ER) | payer MEDICARE ==
[~2020-01-27] VITALS: Ht 162.6 cm; Wt 118.8 kg
[~2020-01-27 23:19] MED LIST changes: +PHEN-318 PO
[2020-01-27] MEDS ORDERED: KETOROLAC 30 MG/ML VIAL. ONE (23:41)
--- NOTE | 2020-01-27 23:41 | PHYS DOC ---
Past Medical History Past Medical History: Diabetes-Type II, Endometriosis, Fibromyalgia, Hype rtension, Hypothyroid Additional Past Medical Histor: chronic BACK pain Past Surgical History: Tubal ligation, Other Additional Past Surgical Histo: KNEE REPAIR, PAIN STIMULATOR, BACK SURGERY, PINS IN RT WRIST Smoking Status: Former Smoker Alcohol Use: Rarely Drug Use: None General Adult EDM: Chief Complaint: FLANK PAIN HPI: HPI: 59-year-old female with underlying history of hypertension, diabetes presents to the emergency department complaints of left flank pain with radiation to her groin. She was recently seen approximate 1 week ago diagnosis of urinary tract infection. She is currently on her second antibiotic. She was prescribed doxycycline with her last evaluation. Patient states she has had worsening pain, no fever. She states she does not get fevers. She is diaphoretic on examination blood pressure 200/100, heart rate 100. She denies any nausea or vomiting. Nothing makes her pain worse, nothing makes her pain better. She does have chronic pain she takes Percocet as well as fentanyl patch. Pain is described as sharp constant Review of Systems: Review of Systems: Constitutional: + chills Respiratory: Denies cough or shortness of breath. [] Cardiovascular: Denies chest pain or edema. [] GI: Denies abdominal pain, nausea, vomiting, bloody stools or diarrhea. [] : dysuria Musculoskeletal: flank pain, left Integument: Denies rash. [] Neurologic: Denies headache, focal weakness or sensory changes. [] Endocrine: Denies polyuria or polydipsia. [] Heart Score: Risk Factors: Risk Factors: DM, Current or recent (<one month) smoker, HTN, HLP, family history of CAD, obesity. Risk Scores: Score 0 - 3: 2.5% MACE over next 6 weeks - Discharge Home Score 4 - 6: 20.3% MACE over next 6 weeks - Admit for Clinical Observation Score 7 - 10: 72.7% MACE over next 6 weeks - Early Invasive Strategies Current Medications: Current Medications Medications (Trade) Dose Ordered Sig/Gray Start Time Stop Time Status Last Admin Dose Admin Sodium Chloride 1,000 ml @ 1,000 mls/hr Q1H 01/27/20 23:35 01/28/20 00:34 UNV Allergies: Allergies: Allergies Coded Allergies Type Severity Reaction Last Updated Verified Cephalexin Monohydrate Allergy Intermediate Itching 11/27/16 Yes Sulfa (Sulfonamide Antibiotics) Allergy Intermediate 11/27/16 Yes azithromycin Allergy Intermediate Hives 11/27/16 Yes codeine Allergy Intermediate Hives 11/27/16 Yes morphine Allergy Intermediate Hives 11/27/16 Yes aspirin Adverse Reaction Intermediate Nausea 11/27/16 Yes Uncoded Allergies Type Severity Reaction Last Updated Verified NO MRIS NONCONDITIONAL SPINAL STIM Allergy Severe 08/12/17 Physical Exam: PE: Constitutional: Well developed, well nourished, mod distress, non-toxic appearance. [] Cardiovascular: tachycardia Lungs & Thorax: Bilateral breath sounds clear to auscultation [] Abdomen: Bowel sounds normal, soft, no tenderness, no masses, no pulsatile masses. [] Skin: Warm, dry, no erythema, no rash. [] Back: No tenderness, left CVA tenderness] Extremities: No tenderness, no edema. [] Neurologic: Alert and oriented X 3, no focal deficits noted. [] Psychologic: Affect normal, judgement normal, mood normal. [] EKG: EKG: [] Radiology/Procedures: Radiology/Procedures: [facility] [address] [place] [address] IMAGING REPORT Signed PATIENT: REGINO LUCIO ACCOUNT: [id number] : 1960 LOCATION: ER AGE: 59 SEX: F EXAM STATUS: REG ER ORD. PHYSICIAN: LANIE CARRINGTON MD REASON: ? pyelo, left flank pain, UTI history, negative scan for stone 1 week ago, PROCEDURE: CT ABD PELV W/ORAL&IV CONTRAST EXAM: CT Abdomen and Pelvis with IV contrast CLINICAL HISTORY: Left flank pain. History of UTI.. COMPARISON: 01/20/2020, 11/29/2015 TECHNIQUE: Helical CT of the abdomen and pelvis was performed following the administration of intravenous contrast. Axial, coronal and sagittal reformatted images were generated. PQRS compliance statement - One or more of the following individualized dose reduction techniques were utilized for this study: 1. Automated exposure control 2. Adjustment of the mA and/or kV according to patient size 3. Use of iterative reconstruction technique FINDINGS: Lower chest: Linear and patchy opacities in the lower lobes dependently likely atelectasis/scarring given the linear nature. Abdomen and Pelvis: Hepatic hypoattenuation likely fatty liver with regions of fatty sparing in the gallbladder fossa and along the falciform ligament. Spleen is unremarkable. Adrenal glands are normal. Pancreas is unremarkable. Aortic calcifications are seen. Symmetric nephrograms. No focal renal lesion. No hydronephrosis. No hydroureter. No abdominal or pelvic lymphadenopathy. No abdominal or pelvic ascites. Appendix is normal. Moderate colonic stool content is seen throughout the colon. No evidence for bowel obstruction. Bones: Degenerative changes of the spine are seen. Posterior spinal fusion hardware L3-4. L5-S1 degenerative changes are seen with endplate sclerosis. IMPRESSION: 1. Symmetric nephrograms. No CT evidence for pyelonephritis. 2. No focal renal lesion. No hydronephrosis. 3. Hepatic hypoattenuation likely fatty liver. 4. No bowel obstruction. Appendix is normal. Electronically signed by: Camron Lacey MD (01/28/2020 1:52 AM) [facility] DICTATED and SIGNED BY: CAMRON LACEY MD DATE: 01/28/20 0152 [] Course & Med Decision Making: Course & Med Decision Making Pertinent Labs and Imaging studies reviewed. (See chart for details) []59-year-old female with underlying history of hypertension, diabetes presents to the emergency department complaints of left flank pain with radiation to her groin. She was recently seen approximate 1 week ago diagnosis of urinary tract infection. She is currently on her second antibiotic. She was prescribed doxycycline with her last evaluation. Patient states she has had worsening pain, no fever. She states she does not get fevers. She is diaphoretic on examination blood pressure 200/100, heart rate 100. She denies any nausea or vomiting. Nothing makes her pain worse, nothing makes her pain better. She does have chronic pain she takes Percocet as well as fentanyl patch. Pain is described as sharp constant Labs reviewed, white blood cell count 6.0, [id number], platelet 223, lactic acid 1.[address] the abdomen pelvis with contrast reveals no evidence of abscess, concern for pyelonephritis nor intra-abdominal process. Patient is afebrile Patient states her chronic pain level is approximately 5-6, she is currently an 8. Discussed admission versus follow-up with her primary care physician, surgeon. Given her work-up in the emergency department is unremarkable, laboratory studies revealed no acute concern for infectious etiology discussed discharge and follow-up as an outpatient Repeat Toradol 60 mg IM in the emergency department Kedar Disclaimer: Kedar Disclaimer: This electronic medical record was generated, in whole or in part, using a voice recognition dictation system. Departure Departure Impression: Primary Impression: Flank pain Disposition: HOME, SELF-CARE Condition: IMPROVED Referrals: JIL VAZ APRN (PCP) Patient Instructions: Flank Pain, [id number] Additional Instructions: Labs and Imaging reviewed CT without evidence of acute findings - no infectious etiology UA improved no evidence of infection on exam Recommend calling PCP and follow up with surgery physician on Wednesday Continue Fentanyl and Percocet, would recommend taking percocet every 6 hours (full tab) Diclofenac rx provided Scripts Diclofenac Potassium (DICLOFENAC POTASSIUM) 50 Mg Tablet 1 TAB PO BID PRN for PAIN for 5 Days, #10 TAB 1 Refill Prov: LANIE CARRINGTON MD 01/28/20 LANIE CARRINGTON MD Jan 27, 2020 23:41
[2020-01-27] MEDS ORDERED: IV NORMAL SALINE 1000ML BAG 1,000 ML IV SCH (23:45)
[2020-01-27] MEDS ORDERED: fentaNYL PF VIAL 100 MCG/2 ML VIAL IVP ONE (23:45)
[2020-01-27 23:55] LABS: BASO % 1 % (0-3); EOS # 0.5 x10^3/uL (0.0-0.7); EOS % 8 % (0-3); HEMATOCRIT 35.9 % (36.0-47.0); HEMOGLOBIN 11.9 g/dL (12.0-15.5); LYMPH % 50 % (24-48); MEAN CORPUSCULAR HEMOGLOBIN 28 pg (25-35); MEAN CORPUSCULAR HGB CONC 33 g/dL (31-37); MEAN CORPUSCULAR VOLUME 84 fL (79-100); MONO # 0.5 x10^3/uL (0.0-1.1); MONO % 9 % (0-9); NEUT % 33 % (31-73); PLATELET COUNT 223 x10^3/uL (140-400); RED BLOOD COUNT 4.29 x10^6/uL (3.50-5.40); RED CELL DISTRIBUTION WIDTH 18.1 % (11.5-14.5)
[2020-01-28] MEDS ORDERED: KETOROLAC 30 MG/ML VIAL. IVP ONE
[2020-01-28 00:12] LABS: ALBUMIN 3.5 g/dL (3.4-5.0); ALBUMIN/GLOBULIN RATIO 0.9 (1.0-1.7); CREATININE 1.3 mg/dL (0.6-1.0); GFR 51.1; POTASSIUM 4.1 mmol/L (3.5-5.1); TOTAL BILIRUBIN 0.5 mg/dL (0.2-1.0); TOTAL PROTEIN 7.2 g/dL (6.4-8.2)
[2020-01-28 00:23] LABS: BILIRUBIN,URINE NEGATIVE (NEG); CLARITY,URINE CLEAR; COLOR,URINE ORANGE; NITRITE,URINE POSITIVE (NEG); PROTEIN,URINE NEGATIVE (NEG-TRACE)
[2020-01-28] MEDS ORDERED: CONTRAST GIVEN. MC PRN (00:30)
[2020-01-28] MEDS ORDERED: IOHEXOL 240 MG/ML 50ML VIAL. PO ONE (00:30)
[2020-01-28 00:36] LABS: BACTERIA,URINE MODERATE /HPF (0-FEW); RBC,URINE 0 /HPF (0-2)
[2020-01-28 00:37] LABS: HYALINE CASTS, URINE FEW /HPF; SQUAMOUS EPITHELIAL CELL,UR MOD /LPF; YEAST,URINE PRESENT /HPF
[2020-01-28] MEDS ORDERED: IOHEXOL 300 MG/ML 100ML VIAL. IV ONE (01:00)
--- NOTE | 2020-01-28 01:55 | RAD ---
EXAM: CT Abdomen and Pelvis with IV contrast CLINICAL HISTORY: Left flank pain. History of UTI.. COMPARISON: 01/20/2020, 11/29/2015 TECHNIQUE: Helical CT of the abdomen and pelvis was performed following the administration of intravenous contrast. Axial, coronal and sagittal reformatted images were generated. PQRS compliance statement - One or more of the following individualized dose reduction techniques were utilized for this study: 1. Automated exposure control 2. Adjustment of the mA and/or kV according to patient size 3. Use of iterative reconstruction technique FINDINGS: Lower chest: Linear and patchy opacities in the lower lobes dependently likely atelectasis/scarring given the linear nature. Abdomen and Pelvis: Hepatic hypoattenuation likely fatty liver with regions of fatty sparing in the gallbladder fossa and along the falciform ligament. Spleen is unremarkable. Adrenal glands are normal. Pancreas is unremarkable. Aortic calcifications are seen. Symmetric nephrograms. No focal renal lesion. No hydronephrosis. No hydroureter. No abdominal or pelvic lymphadenopathy. No abdominal or pelvic ascites. Appendix is normal. Moderate colonic stool content is seen throughout the colon. No evidence for bowel obstruction. Bones: Degenerative changes of the spine are seen. Posterior spinal fusion hardware L3-4. L5-S1 degenerative changes are seen with endplate sclerosis. IMPRESSION: 1. Symmetric nephrograms. No CT evidence for pyelonephritis. 2. No focal renal lesion. No hydronephrosis. 3. Hepatic hypoattenuation likely fatty liver. 4. No bowel obstruction. Appendix is normal. Electronically signed by: Camron Monson MD (01/28/2020 1:52 AM) [place]NIE
[2020-01-28] MEDS ORDERED: fentaNYL PF VIAL 100 MCG/2 ML VIAL IVP ONE (02:00)
[2020-01-28] MEDS ORDERED: DICL50TA2 PO (02:30)
[2020-01-28] MEDS ORDERED: KETOROLAC 60 MG/2 ML VIAL. IM ONE ×2 (02:30→03:00)
[2020-01-28 02:45] VITALS: BP 145/81
== END 2020-01-28 02:45 | disposition home or self-care (01) ==
LOC: ER 23:19
DX: R10.32 Left lower quadrant pain (principal); R30.0 Dysuria; G89.29 Other chronic pain; E11.9 Type 2 diabetes mellitus without complications; I10 Essential (primary) hypertension; E03.9 Hypothyroidism, unspecified; Z87.891 Personal history of nicotine dependence; Z88.1 Allergy status to other antibiotic agents; Z88.2 Allergy status to sulfonamides; Z88.5 Allergy status to narcotic agent; Z88.6 Allergy status to analgesic agent
CPT/HCPCS: 36415; 74177; 80053; 81001; 83605; 85025; 87040; 87086; 96372; 96374; 96375; 96376; 99285; J1885; J3010; J7030; Q9966; Q9967

== ENCOUNTER → 2020-02-26 | Outpatient (CLI) | payer MEDICARE ==
[2020-01-28 02:45] VITALS: BP 145/81
[~2020-02-26] MED LIST changes: +BUPIVACAINE MPF 0.25% 10 ML VIAL. ONE; +DICL50TA2 PO; +IOHEXOL 180 MG/ML 10 ML VIAL. ONE; +methylPREDNISolone ACETATE 40 MG/ML VIAL. ONE; +methylPREDNISolone ACETATE 80 MG/ML VIAL. ONE
--- NOTE | 2020-02-26 08:57 | PAIN ---
DATE OF SERVICE: 02/26/2020 PROGRESS NOTE FOR PAIN CLINIC DIAGNOSES: 1. Lumbar radiculopathy with lumbar post-laminectomy syndrome and degenerative disk disease with spinal cord stimulator. 2. Cervical radiculopathy with cervical degenerative disk disease. 3. Myofascial pain. 4. Bilateral sacroiliitis. HISTORY OF PRESENT ILLNESS: The patient is a 59-year-old female who returns for followup status post left acromioclavicular joint injection for left shoulder joint pain with osteoarthritis. The patient reports she did very well with this, last seen on 07/2019. The patient reports that her shoulder is doing better, but her main complaint today is low back pain. The patient has had pain after an abdominal abscess was removed with an I and D, where she was taken to surgery and put under general anesthetic on 01/12/2020. She had UTI at the same time as well as had a round of 3 antibiotics, but has some significant back pain just right after the surgery. The patient reports it was not there prior to surgery. The pain in the low back bilaterally, in the posterior hips as well, but without radiation to lower extremities. The patient describes the pain as aching, sharp, shooting, cramping, becoming more constant and severe with time, range of motion, and rotation of the lumbar spine somewhat, but with walking, standing, changing positions, especially standing up from a seated position, awakens her from sleep about every 1-1/2 hours. The patient reports doing household activity exacerbates the pain as well as bending, stooping, and walking. The patient rates pain is a 10 on a scale of 10 at its worst over the past week, 9 on average, 7 at its least and is a 9 today. The patient reports no new motor or sensory deficits, no bowel or bladder incontinence. Good stimulation with her spinal cord stimulator and keeping it charged without difficulty and good coverage of her lower extremities, but it is not helping the new back pain since her surgery. PHYSICAL EXAMINATION: VITAL SIGNS: The patient's blood pressure is 132/89, pulse 87, respirations 18, temperature 98.1 degrees Fahrenheit, height is 5 feet 5 inches, weight is 269 pounds. GENERAL: The patient is awake, alert, oriented, appropriate, very pleasant demeanor. HEENT: Shows normocephalic, atraumatic. Extraocular movements are intact and symmetrical. Oral cavity: Mucous membranes moist and pink. Dentition is intact. NECK: Shows anterior throat supple without palpable lymphadenopathy noted. Swallow reflex symmetrical. CHEST: Shows normal on inspection. Breath sounds are clear bilaterally. HEART: Shows S1, S2 clear. ABDOMEN: Soft, nontender, nondistended. No palpable organomegaly is noted. No rebound or guarding demonstrated. BACK: Shows spine grossly in the midline. Normal appearing thoracic kyphosis and minor flattening of lumbar lordotic curvature. Well-healed surgical scarring noted, also easily palpable spinal cord stimulator battery in the right posterior superior gluteus with well-healed surgical scar as well. No tenderness with palpation in the stimulator battery area. The patient has good rotational motion of lumbar spine without significant increase in pain, however, over the posterior superior iliac spines and the superior aspect of the sacroiliac joint, very tender bilaterally, especially on the left without specific radiation, but very tender with the patient and pulling away from the examining hand. These associated musculature in the lumbar paraspinous and little bit of gluteus is also very tender with palpation surrounding the sacroiliac regions bilaterally. EXTREMITIES: The patient's lower extremities show deep tendon reflexes 1+ in the patellar and tendo calcaneus tendons. Motor exam is strong with approximately 5/5 dorsiflexion and extension. She has a positive Gaenslen's maneuver bilaterally, again more tenderness reported on the left than the right, but positive bilaterally. Peripheral pulses are 1+ posterior tibial. No peripheral edema is noted. Options were discussed with the patient. The patient's old chart was reviewed as her current medication regimen updated. Current review of systems updated today as well. We will proceed with bilateral sacroiliac joint injection today with fluoroscopic guidance. Risks were discussed including but not limited to bleeding, infection, possibility of intravascular injection sequelae, spread of local anesthetic and numbness, side effects of steroid medication and poor results regarding pain control. The patient understands and wished to proceed. The patient will return to clinic in approximately 2 weeks for followup, was counseled on return appointment, activity level and side effects to be aware of. DIAGNOSIS: Bilateral sacroiliitis. PROCEDURE: Bilateral sacroiliac joint injection using C-arm fluoroscopic guidance under sterile prep and drape with C-arm fluoroscopic guidance. MEDICATION INJECTED: A total of 120 mg Depo-Medrol plus 4 mL, 2 mL per side of 0.25% bupivacaine and a total of 4 mL, 2 mL per side of contrast. CONDITION AT DISCHARGE: Stable. The patient tolerated the procedure well, had no complications. TROY TERAN MD DR: IVETT/christine JOB#: [id number] / [id number]
== END ==
LOC: PNCL 07:49
PROVIDERS: ATTEND Anesthesiology
DX: M46.1 Sacroiliitis, not elsewhere classified (principal); M51.16 Intervertebral disc disorders with radiculopathy, lumbar region; M96.1 Postlaminectomy syndrome, not elsewhere classified; M50.10 Cervical disc disorder with radiculopathy, unspecified cervical region; M79.18 Myalgia, other site
CPT/HCPCS: G0260; J1030; J1040; J3490; Q9965; 27096

== ENCOUNTER → 2020-06-17 | Outpatient (CLI) | payer MEDICARE ==
[~2020-06-17] MED LIST changes: -BUPIVACAINE MPF 0.25% 10 ML VIAL. ONE; -IOHEXOL 180 MG/ML 10 ML VIAL. ONE; +MULT-445 PO; -MULT1TAB52 PO; -methylPREDNISolone ACETATE 40 MG/ML VIAL. ONE; -methylPREDNISolone ACETATE 80 MG/ML VIAL. ONE
[2020-06-17 08:48] LABS: CALCIUM 8.2 mg/dL (8.5-10.1); CREATININE 1.2 mg/dL (0.6-1.0); GFR 55.8; PHOSPHORUS 4.4 mg/dL (2.6-4.7); POTASSIUM 3.7 mmol/L (3.5-5.1)
--- NOTE | 2020-06-17 15:25 | RAD ---
Renal ultrasound complete: Reason for examination: Acute kidney failure. Right kidney measures 10.8 x 5.4 x 4.4 cm in greatest dimension with normal cortical medullary differentiation and no right renal mass or hydronephrosis is seen. There appears to be good vascular flow. The left kidney measures 10.9 x 4.2 x 4.8 cm in greatest dimension and shows normal cortical medullary differentiation with no left renal mass or hydronephrosis. There appears to be good vascular flow. The bladder is not distended. IMPRESSION: No renal masses or hydronephrosis. Electronically signed by: Sindi Duncan MD (06/17/2020 3:22 PM) [place]
[2020-06-18 09:13] LABS: CREAT RD UR 390.3 mg/dL (Not Estab.)
[2020-06-18 15:12] LABS: KAPPA FREE 28.8 mg/L (3.3-19.4); KAPPA LAMBDA RATIO 0.98 (0.26-1.65); LAMBDA FREE 29.5 mg/L (5.7-26.3)
[2020-06-19 13:13] LABS: ALBUM 3.6 g/dL (2.9-4.4); ALPHA 1 0.2 g/dL (0.0-0.4); ALPHA 2 0.9 g/dL (0.4-1.0); BETA 1.1 g/dL (0.7-1.3); GAMMA 1.4 g/dL (0.4-1.8); PROTEIN TOTAL 7.2 g/dL (6.0-8.5)
[2020-06-19 14:12] LABS: IMMUNOGLOBULIN A 261 mg/dL (87-352); IMMUNOGLOBULIN G 1297 mg/dL (586-1602); IMMUNOGLOBULIN M 125 mg/dL (26-217)
== END | disposition home or self-care (01) ==
LOC: US 06:56
PROVIDERS: ATTEND Internal Medicine Nephrology
DX: E11.21 Type 2 diabetes mellitus with diabetic nephropathy (principal); N17.9 Acute kidney failure, unspecified; I12.9 Hypertensive chronic kidney disease with stage 1 through stage 4 chronic kidney disease, or unspecified chronic kidney disease; N18.2 Chronic kidney disease, stage 2 (mild); E11.22 Type 2 diabetes mellitus with diabetic chronic kidney disease; N39.0 Urinary tract infection, site not specified; D64.9 Anemia, unspecified; E66.9 Obesity, unspecified; Z68.41 Body mass index [BMI] 40.0-44.9, adult
CPT/HCPCS: 36415; 76770; 80069; 82043; 82570; 82784; 83520; 84156; 84165; 84550; 86334

== ENCOUNTER → 2020-09-03 | Outpatient (CLI) | payer MEDICARE ==
[~2020-09-03] MED LIST changes: +AMLO-187 PO; -AMLO10TA8 PO; +BUPIVACAINE MPF 0.25% 10 ML VIAL. ONE; +IOHEXOL 180 MG/ML 10 ML VIAL. ONE; +methylPREDNISolone ACETATE 40 MG/ML VIAL. ONE; +methylPREDNISolone ACETATE 80 MG/ML VIAL. ONE
--- NOTE | 2020-09-03 09:06 | PDOC ---
Progress Note - Pain Clinic Date of Service: DOS: DATE: 09/03/20 TIME: 09:02 Diagnosis: Dx: Bilateral sacroiliitis Lumbar radiculopathy with lumbar postlaminectomy syndrome lumbar degenerative disc disease with lumbar spinal cord stimulator with paddle leads Cervical radiculopathy with cervical degenerative disc disease Right shoulder joint pain with osteoarthritis Left elbow epicondylitis Myofascial pain History or Present Illness: HPI: 60-year-old female returns follow-up status post bilateral sacroiliac joint injections last seen February 26, 2020. Patient which did very well overall about 60% improvement for 3 weeks were doing much better but after that is been about a 60% improvement until the last month or so, when the pain began to return significantly in the bilateral posterior hips and also pain in the low back and radiating up to the mid back. Patient ports pain is become more constant stabb ing describes aching sharp tight worse with walking standing changing positions better with sitting or laying down it wakes her from sleep about once every 1-3 hours at night here over the past few weeks. Patient rates her pain a 10 on scale 10 is last week 8 on average and a 6 out of 10 at the least over the last week and is a 8 today. Patient reports no new motor or sensory deficits no new bowel or bladder incontinence or other complaints. Physical Exam: VS: Blood pressure is 157/100 pulse 103 respirations 18 temperature 98.1 F height is 5 feet 5 inches weight is 2 6 5 pounds PE: PHYSICAL EXAMINATION: GENERAL: The patient is awake, alert, oriented, appropriate, very pleasant demeanor HEENT: Shows normocephalic, atraumatic. Extraocular movements are intact and symmetrical. Oral cavity: Mucous membranes moist and pink. Dentition is intact. NECK: Shows anterior throat supple without palpable lymphadenopathy noted. Swallow reflex symmetrical. CHEST: Shows normal on inspection. Breath sounds are clear bilaterally, no rales rhonchi wheezes auscultated. HEART: Shows S1, S2 clear. No murmurs auscultated. ABDOMEN: Soft, nontender, nondistended, obese. No palpable organomegaly is noted. No rebound or guarding demonstrated. BACK: Shows spine grossly in the midline. Normal-appearing cervical lordotic curvature. There is slightly increased thoracic kyphosis, some minor flattening of the lumbar lordotic curvature. Well-healed surgical scarring is noted and easily palpable spinal cord stimulator generator in the right posterior gluteus. Lumbar paraspinous muscles show symmetrical on inspection, on palpation shows some moderate tenderness diffusely throughout the upper, middle and lower distribution of the paraspinous muscles bilaterally and also into the lower thoracic paraspinous musculature, firm and tender, but without specific trigger points, without radiation of pain. The patient has good rotational motion of the lumbar spine, both laterally as well as extension and flexion without significant difficulty. Patient shows significant tenderness palpation over the posterior superior iliac spines and the bilateral sacroiliac regions, but without specific radiation. EXTREMITIES: Lower extremities show deep tendon reflexes 1+ in the patellar and tendo calcaneus tendons. Motor exam is 5 on a scale of 5 with right dorsiflexion, extension, quadriceps and hamstring flexion and 5/5 on the left. Peripheral pulses are 1+ posterior tibial. No peripheral edema is noted bilaterally. Lower extremities are warm and dry to touch, equal in color and appearance. SKIN: Shows warm and dry, good turgor. No edema. No sores, rashes or bruising throughout. Procedure: Procedure: Options were discussed with the patient. Patient's old chart was reviewed as her current medication regimen updated and current review of systems updated today as well. We will proceed with bilateral sacroiliac joint injections as patient is done quite well with these in the past. Risks were again discussed including but not limited to bleeding infection possibility of intravascular injection sequelae spread to local anesthetic numbness side effects of steroid medication exposure fluoroscopy and portal scarring pain control. Patient understands wished to proceed patient return to clinic in approximately 2 weeks for follow-up was counseled as to return appointment activity level and side effects be aware of. Medication Injected: Med Injected: Under sterile prep and drape using C-arm fluoroscopic guidance, bilateral sacroiliac joints injected using 3 cc 0.25% bupivacaine +80 mg Depo-Medrol +1.5 cc contrast, right and left. Condition at discharge is stable, patient tolerated procedure well and had no complications. Condition at Discharge: Condition at Discharge: Condition at discharge stable patient tolerated procedure well and had no complications. TROY TERAN MD Sep 03, 2020 09:06
== END | disposition home or self-care (01) ==
LOC: PNCL 08:08
PROVIDERS: ATTEND Anesthesiology
DX: M46.1 Sacroiliitis, not elsewhere classified (principal); M51.16 Intervertebral disc disorders with radiculopathy, lumbar region; M96.1 Postlaminectomy syndrome, not elsewhere classified; M50.10 Cervical disc disorder with radiculopathy, unspecified cervical region; M19.011 Primary osteoarthritis, right shoulder; M77.02 Medial epicondylitis, left elbow; M79.18 Myalgia, other site; I10 Essential (primary) hypertension; E78.00 Pure hypercholesterolemia, unspecified; K21.9 Gastro-esophageal reflux disease without esophagitis; M19.90 Unspecified osteoarthritis, unspecified site; E11.9 Type 2 diabetes mellitus without complications; E66.9 Obesity, unspecified; Z90.710 Acquired absence of both cervix and uterus; Z98.51 Tubal ligation status; Z98.890 Other specified postprocedural states; Z79.899 Other long term (current) drug therapy
CPT/HCPCS: G0260; J1030; J1040; J3490; Q9965; 27096

== ENCOUNTER → 2020-11-13 | Outpatient (CLI) | payer MEDICARE ==
--- NOTE | 2020-11-13 09:14 | PDOC ---
Progress Note - Pain Clinic Date of Service: DOS: DATE: 11/13/20 TIME: 09:10 Diagnosis: Dx: Lumbar radiculopathy with lumbar degenerative disease lumbar postlaminectomy syndrome with spinal cord stimulator with paddle lead Cervical radiculopathy with cervical degenerative disc disease Myofascial pain Sacroiliitis bilaterally Bilateral shoulder joint pain with osteoarthritis History or Present Illness: HPI: 60-year-old female returns to follow-up status post bilateral sacroiliac joint injections last on September 03, 2020. Patient reports she did very well about 50% improvement overall in the low back bilaterally in the hips. Patient reports it is much better she was increased activity greater distance walking doing household activities travel with greater ease and comfort but the pain is returning over the past 3 to 4 weeks in the low back itself bilaterally in the posterior aspect of the hip and the sacroiliac regions as previously. Patient ports also some pain in the base of the neck and shoulders more on the left than the right. Patient rates pain is a 10 on scale 10 is worse over the past week to 9 on average 8 its least is a 9 today. Patient reports no new motor or sensory deficits no new bowel or bladder incontinence or other complaints. Physical Exam: VS: Blood pressure is 170/96 pulse 1 4 respirations 18 temp 90.7 F height 5 feet 5 inches weight 256 pounds PE: PHYSICAL EXAMINATION: GENERAL: The patient is awake, alert, oriented, appropriate, very pleasant de meanor HEENT: Shows normocephalic, atraumatic. Extraocular movements are intact and symmetrical. Oral cavity: Mucous membranes moist and pink. NECK: Shows anterior throat supple without palpable lymphadenopathy noted. Swallow reflex symmetrical. CHEST: Shows normal on inspection. Breath sounds are clear bilaterally. HEART: Shows S1, S2 clear. No murmurs auscultated. ABDOMEN: Soft, nontender, nondistended, obese. No palpable organomegaly is noted. BACK: Shows spine grossly in the midline. Normal-appearing cervical lordotic curvature. There is increased thoracic kyphosis, some flattening of the lumbar lordotic curvature. Well-healed surgical scars noted. Patient's right posterior gluteus shows well-healed surgical scarring and easily palpable spinal cord stimulator generator. Lumbar paraspinous muscles show symmetrical on inspection, on palpation shows some moderate tenderness diffusely throughout the upper, middle and lower distribution of the paraspinous muscles without specific trigger points, without radiation of pain. The patient has good rotational motion of the lumbar spine, both laterally as well as extension and flexion without significant difficulty. Patient shows significant tenderness over the posterior superior iliac spines bilaterally right essentially equal to left as well as over the sacroiliac joints bilaterally with deep palpation but without specific radiation. EXTREMITIES: Lower extremities show deep tendon reflexes 1+ in the patellar and tendo calcaneus tendons. Motor exam is 5 on a scale of 5 with right dorsiflexion, extension, quadriceps and hamstring flexion and 5/5 on the left. Peripheral pulses are 1+ posterior tibial. No peripheral edema is noted bilaterally. SKIN: Shows warm and dry, good turgor. No edema. No sores, rashes or bruising throughout. Procedure: Procedure: Options were discussed with patient. Patient chart reviews her current medication regimen updated current review of systems updated today as well. We will proceed with bilateral sacroiliac joint injections today with fluoroscopic guidance. Risks were discussed including but not limited to bleeding infection possibility of intravascular injection sequelae spread to local anesthetic numbness side effects steroid medication exposure fluoroscopy and poor results regarding pain control. Patient understands wished to proceed. Patient will return to clinic approximate 2 weeks for follow-up was counseled as to return appointment activity level and side effects to be aware of. Medication Injected: Med Injected: Under sterile prep and drape using C-arm fluoroscopic guidance, bilateral sacroiliac joints injected using 3 cc each 0.25% bupivacaine +60 mg each Depo- Medrol +2 cc contrast each side. Condition at discharge is stable, patient tolerated procedure well and had no complications. Condition at Discharge: Condition at Discharge: Condition at discharge stable, patient tolerated procedure well had no complicat TROY Ocasio MD Nov 13, 2020 09:14
--- NOTE | 2020-11-13 09:15 | PDOC4 ---
PROCEDURE Procedure Patient was consented for bilateral sacroiliac joint injections with fluoros copic guidance. Risks were discussed including but not limited to bleeding infection possibility of intravascular injection sequelae spread local anesthetic and numbness side effects steroid medication exposure fluoroscopy and poor results regarding pain control. Patient understands wished to proceed. Under sterile prep and drape using C-arm fluoroscopic guidance, bilateral sacro iliac joints injected using 3 cc each 0.25% bupivacaine +60 mg each Depo-Medrol +2 cc contrast. Condition at discharge is stable, patient tolerated procedure well and had no complications. TROY TERAN MD Nov 13, 2020 09:15
== END | disposition home or self-care (01) ==
LOC: PNCL 08:06
PROVIDERS: ATTEND Anesthesiology
DX: M46.1 Sacroiliitis, not elsewhere classified (principal); M51.16 Intervertebral disc disorders with radiculopathy, lumbar region; M50.10 Cervical disc disorder with radiculopathy, unspecified cervical region; M96.1 Postlaminectomy syndrome, not elsewhere classified; M19.012 Primary osteoarthritis, left shoulder; M19.011 Primary osteoarthritis, right shoulder; M79.10 Myalgia, unspecified site; E78.00 Pure hypercholesterolemia, unspecified; K21.9 Gastro-esophageal reflux disease without esophagitis; I10 Essential (primary) hypertension; E66.9 Obesity, unspecified; E11.9 Type 2 diabetes mellitus without complications; M19.90 Unspecified osteoarthritis, unspecified site; Z90.710 Acquired absence of both cervix and uterus; Z98.51 Tubal ligation status; Z98.890 Other specified postprocedural states; Z87.891 Personal history of nicotine dependence; Z72.89 Other problems related to lifestyle; Z88.1 Allergy status to other antibiotic agents; Z88.8 Allergy status to other drugs, medicaments and biological substances; Z88.2 Allergy status to sulfonamides; Z88.5 Allergy status to narcotic agent; Z82.49 Family history of ischemic heart disease and other diseases of the circulatory system; Z79.899 Other long term (current) drug therapy; Z79.84 Long term (current) use of oral hypoglycemic drugs
CPT/HCPCS: G0260; J1030; J1040; J3490; Q9965; 27096

== ENCOUNTER 2021-03-08 17:14 | Emergency (ER) | payer MEDICARE ==
[~2021-03-08] VITALS: Ht 162.6 cm; Wt 120.0 kg
[~2021-03-08 17:14] MED LIST changes: -BUPIVACAINE MPF 0.25% 10 ML VIAL. ONE; -IOHEXOL 180 MG/ML 10 ML VIAL. ONE; +METH-562 PO; -METH750T2 PO; -POLY17PO28 PO; +POLY17PO52 PO; -methylPREDNISolone ACETATE 40 MG/ML VIAL. ONE; -methylPREDNISolone ACETATE 80 MG/ML VIAL. ONE
[2021-03-08 17:30] VITALS: BP 171/96
--- NOTE | 2021-03-08 19:26 | ED.ADGEN ---
Past Medical History Past Medical History: Diabetes-Type II, Hypertension, Other Additional Past Medical Histor: CHRONIC BACK PAIN, BACK NERVE STIMULATOR Past Surgical History: Other Additional Past Surgical Histo: ABDOMINAL SURGERY ABSCESS, Left ankle surgery Smoking Status: Current Some Day Smoker Alcohol Use: Sober Drug Use: None General Adult EDM: Chief Complaint: BACK PAIN - NO INJURY HPI: HPI: Patient is a 60 year old female coming in for acute on chronic low back pain that radiates to her right hip. Patient states she has had the pain for years and has been exacerbated by have to wear a boot on her right foot after a foot surgery. Denies any new injuries, heavy lifting, falls. Patient states she has a fentanyl patch but is unable to put it on until tomorrow. Patient is here for relief from her chronic pain. Took one of her oxycodones at home a few hours prior to arrival without improvement. Patient states that this happens intermittently where she will have flareups of her back pain. States she otherwise been well. Review of Systems: Review of Systems: All other systems within normal limits except for as noted in the HPI Allergies: Allergies: Allergies Coded Allergies Type Severity Reaction Last Updated Verified Cephalexin Monohydrate Allergy Intermediate Itching 11/27/16 Yes Sulfa (Sulfonamide Antibiotics) Allergy Intermediate 11/27/16 Yes azithromycin Allergy Intermediate Hives 11/27/16 Yes codeine Allergy Intermediate Hives 11/27/16 Yes morphine Allergy Intermediate Hives 11/27/16 Yes aspirin Adverse Reaction Intermediate Nausea 11/27/16 Yes Uncoded Allergies Type Severity Reaction Last Updated Verified NO MRIS NONCONDITIONAL SPINAL STIM Allergy Severe 08/12/17 Physical Exam: PE: Constitutional: Well developed, well nourished, no acute distress, non-toxic appearance. [] HENT: Normocephalic, atraumatic, bilateral external ears normal, nose normal. [] Eyes: PERRLA, conjunctiva normal, no discharge. [] Neck: No rigidity, supple, no stridor. [] Cardiovascular: Regular rate and rhythm, brisk cap refill [] Lungs & Thorax: Non labored symmetric respirations, no tachypnea or respiratory distress [] Abdomen: Soft, nondistended. Skin: Warm, dry, no erythema, no rash. [] Back: Unremarkable, no step-offs deformities, tenderness diffusely over lumbar Extremities: No deformities, range of motion grossly intact, no lower extremity edema [] Neurologic: Alert and oriented X 3, no focal deficits noted. [] Psychologic: Affect normal, judgement normal, mood normal. [] Current Patient Data: Vital Signs: Vital Signs Date Time Temp Pulse Resp B/P (MAP) Pulse Ox O2 Delivery O2 Flow Rate FiO2 03/08/21 17:30 98.7 120 18 171/96 (121) 97 98.7 EKG: EKG: [] Heart Score: C/O Chest Pain: No Risk Factors: Risk Factors: DM, Current or recent (<one month) smoker, HTN, HLP, family history of CAD, obesity. Risk Scores: Score 0 - 3: 2.5% MACE over next 6 weeks - Discharge Home Score 4 - 6: 20.3% MACE over next 6 weeks - Admit for Clinical Observation Score 7 - 10: 72.7% MACE over next 6 weeks - Early Invasive Strategies Radiology/Procedures: Radiology/Procedures: [] Course & Med Decision Making: Course & Med Decision Making Discussed work-up versus pain control with patient. Patient states that this is no different in her flareups and declines any work-up. Dragon Disclaimer: [email or web address] Disclaimer: This electronic medical record was generated, in whole or in part, using a voice recognition dictation system. Departure Departure Impression: Primary Impression: Acute exacerbation of chronic low back pain Disposition: 01 HOME / SELF CARE / HOMELESS Condition: STABLE Referrals: JIL VAZ APRN (PCP) Patient Instructions: Back Pain, Adult JOEL CHRISTOPHER MD March 08, 2021 19:26
[2021-03-08] MEDS ORDERED: KETOROLAC 60 MG/2 ML VIAL. IM ONE (19:30)
[2021-03-08] MEDS ORDERED: HYDROmorphone 2 MG/ML VIAL IM ONE (19:30)
== END 2021-03-08 19:45 | disposition home or self-care (01) ==
LOC: ER 17:14
DX: G89.29 Other chronic pain (principal); M54.5 Low back pain; E11.9 Type 2 diabetes mellitus without complications; I10 Essential (primary) hypertension; F17.200 Nicotine dependence, unspecified, uncomplicated; Z88.1 Allergy status to other antibiotic agents; Z88.2 Allergy status to sulfonamides; Z88.5 Allergy status to narcotic agent; Z88.6 Allergy status to analgesic agent
CPT/HCPCS: 96372; 99284; J1170; J1885

== ENCOUNTER → 2021-04-04 | Outpatient (CLI) | payer MEDICARE ==
[2021-03-08 17:30] VITALS: BP 171/96
--- NOTE | 2021-04-04 16:52 | RAD ---
XR THORACIC SPINE 3VIEWS, XR LUMBAR SPINE 2-3V History: Reason: NEED ENTIRE VISUAL OF SCS (SPINAL CORD STIMULATOR) / Spl. Instructions: / History: Pain Technique: 3 views thoracic spine and 3 views lumbar spine. Comparison: None. Findings: Spinal stimulator entering the spinal column at T9-T10 with electrodes terminating at T6-T7. Posterio r stabilization and interbody fusion L3-L4. Normal alignment of the thoracic spine. Normal vertebral body height. No fracture. Mild degenerative disc changes throughout the thoracic spine. Partially imaged lower cervical spondylosis. Mild retrolisthesis L3 on L4. Normal vertebral body height. No fracture. Multilevel lumbar spondylosi s most prominent moderate L5-S1. Facet arthropathy. Impression: 1. Spinal stimulator terminating at T6-T7. 2. Multilevel thoracolumbar spondylosis. Electronically signed by: Gilbert Cazares DO (04/04/2021 4:49 PM) [id number]
== END ==
LOC: RAD 12:59
PROVIDERS: ATTEND Neurological Surgery
DX: M47.815 Spondylosis without myelopathy or radiculopathy, thoracolumbar region (principal)
CPT/HCPCS: 72072; 72100

== ENCOUNTER → 2021-05-13 | Outpatient (CLI) | payer MEDICARE ==
[2021-05-13 13:50] LABS: BASO % 1 % (0-3); EOS # 0.3 x10^3/uL (0.0-0.7); EOS % 5 % (0-3); HEMATOCRIT 36.1 % (36.0-47.0); LYMPH # 2.2 x10^3/uL (1.0-4.8); LYMPH % 32 % (24-48); MEAN CORPUSCULAR HEMOGLOBIN 27 pg (25-35); MEAN CORPUSCULAR HGB CONC 33 g/dL (31-37); MEAN CORPUSCULAR VOLUME 82 fL (79-100); MONO # 0.4 x10^3/uL (0.0-1.1); MONO % 5 % (0-9); NEUT # 3.8 x10^3/uL (1.8-7.7); NEUT % 57 % (31-73); PLATELET COUNT 253 x10^3/uL (140-400); RED BLOOD COUNT 4.42 x10^6/uL (3.50-5.40); RED CELL DISTRIBUTION WIDTH 19.6 % (11.5-14.5); WHITE BLOOD COUNT 6.7 x10^3/uL (4.0-11.0)
[2021-05-13 13:56] LABS: PROTHROMBIN TIME PATIENT 13.3 SEC (11.7-14.0)
[2021-05-13 14:03] LABS: ALBUMIN 3.1 g/dL (3.4-5.0); ALBUMIN/GLOBULIN RATIO 0.7 (1.0-1.7); CALCIUM 8.8 mg/dL (8.5-10.1); CREATININE 1.1 mg/dL (0.6-1.0); GFR 61.5; POTASSIUM 3.6 mmol/L (3.5-5.1); TOTAL BILIRUBIN 0.5 mg/dL (0.2-1.0); TOTAL PROTEIN 7.7 g/dL (6.4-8.2)
[2021-05-13 22:08] LABS: HEMOGLOBIN A1C 6.6 % (4.8-5.6)
== END ==
LOC: SURGPAT 11:51
PROVIDERS: ATTEND Neurological Surgery
DX: T85.890A Other specified complication of nervous system prosthetic devices, implants and grafts, initial encounter (principal); I10 Essential (primary) hypertension; X58.XXXA Exposure to other specified factors, initial encounter
CPT/HCPCS: 36415; 80053; 83036; 85025; 85610; 85730; 87641

== ENCOUNTER 2021-05-20 06:58 | Day surgery (SDC) | payer MEDICARE ==
[2021-05-13 12:41] VITALS: BP 135/84
[~2021-05-20] VITALS: Ht 165.1 cm; Wt 115.0 kg
[~2021-05-20 06:58] MED LIST changes: +CLINDAMYCIN 900MG PREMIX 50 ML IV PRN; +HYDROmorphone 2 MG/ML VIAL IVP PRN; +IV RINGERS,LACTATED 1000ML 1,000 ML IV SCH; +MORPHINE SULFATE 2 MG/ML INJ. IVP PRN; +PROCHLORPERAZINE 10 MG/2 ML VIAL. IVP PRN; +fentaNYL PF VIAL 100 MCG/2 ML VIAL IVP PRN
[2021-05-20] MEDS ORDERED: GELATIN SPONGE SIZE 100. ONE (07:05)
[2021-05-20] MEDS ORDERED: LIDOCAINE 1%/EPI 1:100,000 20 ML VIAL. ONE (07:05)
[2021-05-20] MEDS ORDERED: THROMBIN TOPICAL 20,000 UNIT SPRAY.SYRN KIT TP ONE (07:05)
[2021-05-20] MEDS ORDERED: BUPIVACAINE MPF 0.5% 30 ML VIAL. ONE (07:05)
[2021-05-20 07:22] VITALS: BP 137/78
[2021-05-20] MEDS ORDERED: LIDOCAINE 2% PF 5 ML VIAL. ONE (08:22)
[2021-05-20] MEDS ORDERED: DEXAMETHASONE SOD PHOS 4 MG/ML VIAL ONE (08:22)
[2021-05-20] MEDS ORDERED: ROCURONIUM 50 MG/5 ML VIAL. ONE (08:22)
[2021-05-20] MEDS ORDERED: ONDANSETRON PF 4 MG/2 ML VIAL. ONE (08:22)
[2021-05-20] MEDS ORDERED: PROPOFOL 10 MG/ML (20ML) VIAL. IV ONE (08:22)
[2021-05-20] MEDS ORDERED: MIDAZOLAM HCL/PF 2 MG/2 ML VIAL. ONE (08:23)
[2021-05-20] MEDS ORDERED: fentaNYL PF VIAL 100 MCG/2 ML VIAL ONE (08:23)
[2021-05-20] MEDS ORDERED: REMIFENTANIL 1 MG VIAL. IV ONE (08:52)
[2021-05-20] MEDS ORDERED: ePHEDrine PF IN SALINE 50 MG/10 ML SYRINGE. IV ONE (09:08)
[2021-05-20] MEDS ORDERED: PHENYLEPHRINE 10 MG/ML VIAL. ONE ×2 (09:17)
[2021-05-20] MEDS ORDERED: GLYCOPYRROLATE 1 MG/5 ML VIAL. ONE (09:35)
[2021-05-20] MEDS ORDERED: NEOSTIGMINE METHYLSULFATE 5 MG/5 ML SYRINGE. ONE (09:36)
--- NOTE | 2021-05-20 09:54 | PDOC ---
BRIEF OPERATIVE NOTE Date: May 20, 2021 Pre-Op Diagnosis malfunctioning spinal cord stimulator pulse generator Post-Op Diagnosis same Procedure Performed removal and replacement of spinal cord stimulator pulse generator Surgeon [employer] Research Scientist none Anesthesia Type: General Blood Loss 1mL Specimens Obtained explant old generator Findings normal impedances Complications none apparent AMY ENGEL MD May 20, 2021 09:54
[2021-05-20] MEDS ORDERED: SEVOFLURANE > 120 MINUTES. IH ONE (10:01)
[2021-05-20] MEDS ORDERED: OXYC1TAB15 PO (10:02)
[2021-05-20] MEDS ORDERED: LABETALOL 20 MG/4 ML DISP.SYRIN. IVP ONE (10:07)
[2021-05-20] MEDS ORDERED: LABETALOL 20 MG/4 ML DISP.SYRIN. IVP PRN (10:45)
[2021-05-20 11:00] VITALS: BP 157/87
[2021-05-20] MEDS ORDERED: oxyCODONE/APAP 5/325 1 TAB TABLET PO ONE (11:15)
--- NOTE | 2021-05-21 22:01 | OP ---
DATE OF SURGERY: 05/20/2021 SURGEON: Roberth Slade MD MASTER MERCHANDISER: None. PREOPERATIVE DIAGNOSIS: Back pain with presence of spinal cord stimulator with malfunctioning spinal cord stimulator pulse generator. POSTOPERATIVE DIAGNOSIS: Back pain with presence of spinal cord stimulator with malfunctioning spinal cord stimulator pulse generator. PROCEDURE: Removal and replacement of spinal cord stimulator intermittent pulse generator from the right flank with impedance check and subsequent reprogramming. ANESTHESIA: General. COMPLICATIONS: None. INDICATIONS FOR THE PROCEDURE: The patient is a 61-year-old female who has a thoracic spinal cord stimulator, who has had new side effects related to malfunctioning of the pulse generator. It is also in a pocket where it is loose enough to fully rotate within the tissue pocket and is also creating local pain due to its relatively superficial location. Please refer to the patient's chart for additional detail. DESCRIPTION OF PROCEDURE: After informed consent was obtained, the patient was brought to the operating room. She was placed under general anesthesia. She was placed in the prone position on the Jose De Jesus table. All pressure points were checked and padded appropriately. Clindamycin was then instituted as a prophylactic antibiotic. The right flank incision over her intermittent pulse generator was opened with a 10 blade scalpel. Blunt dissection techniques were utilized to dissect the underlying tissue to approach the intermittent pulse generator. This was dissected free from the scar tissue pocket and removed without problem. The old intermittent pulse generator was detached from the extension wires and a new intermittent pulse generator was brought into the field and reattached according to the hiv cts specialist's specifications. Impedances were within normal limits. A new pocket was gently dissected underneath the old scar tissue pocket deeper into the underlying adipose tissue. Once this was complete, the new pulse generator was inserted into the deeper pocket without problems. It was secured with silk sutures. The extension wires were noted to be free of torsion or kinking upon final placement of the pulse generator. Once this was complete, impedances were again noted to be within normal limits. The new pulse generator was reprogrammed to the prior settings of the old pulse generator. The wound was generously irrigated prior to the final closure. The underlying tissues were reapproximated with 0 Vicryl and 2-0 Vicryl in interrupted inverted fashion and the skin was reapproximated with 4-0 Vicryl in a running subcuticular fashion. Mastisol and Steri-Strips were applied. The wound was dressed with Telfa, 4 x 4's, and Tegaderm. At the end of the procedure, all needle and sponge counts were correct x 2. The patient was extubated in the operating room and taken to recovery in stable condition. There were no intraprocedural complications apparent. The old intermittent pulse generator was passed off to the [employer] special service representative to be sent back to the company for further evaluation of its malfunction. The new pulse generator is an [employer]ant XR5. CLINTON/ANGIE/IGOR DR: Pedro TID: [id number] MTDD
== END 2021-05-20 11:53 ==
LOC: SURG 06:58
PROVIDERS: ATTEND Neurological Surgery
DX: T85.193A Other mechanical complication of implanted electronic neurostimulator, generator, initial encounter (principal); M54.89 Other dorsalgia; I10 Essential (primary) hypertension; E78.00 Pure hypercholesterolemia, unspecified; E03.9 Hypothyroidism, unspecified; M19.90 Unspecified osteoarthritis, unspecified site; E11.9 Type 2 diabetes mellitus without complications; K21.9 Gastro-esophageal reflux disease without esophagitis; E66.9 Obesity, unspecified; M79.7 Fibromyalgia; F17.210 Nicotine dependence, cigarettes, uncomplicated; Z79.899 Other long term (current) drug therapy; Z90.49 Acquired absence of other specified parts of digestive tract; Z90.710 Acquired absence of both cervix and uterus; Z98.51 Tubal ligation status; Z98.42 Cataract extraction status, left eye; Z90.722 Acquired absence of ovaries, bilateral; Z98.890 Other specified postprocedural states; Y83.8 Other surgical procedures as the cause of abnormal reaction of the patient, or of later complication, without mention of misadventure at the time of the procedure
CPT/HCPCS: 63685; 82962; A4213; A4364; A4930; A6254; A6258; A6402; C1767; J1100; J2250; J2370; J2405; J2704; J2710; J3010; J3490; A4222; A4223; A4452; A4657

== ENCOUNTER 2021-07-27 00:07 | Emergency (ER) | payer MEDICARE ==
[~2021-07-27] VITALS: Ht 164.5 cm; Wt 116.4 kg
[~2021-07-27 00:07] MED LIST changes: -CLINDAMYCIN 900MG PREMIX 50 ML IV PRN; -DULO60CA6 PO; +DULO60CA7 PO; -ESTR2TAB PO; +ESTR2TAB3 PO; -HYDROmorphone 2 MG/ML VIAL IVP PRN; -IV RINGERS,LACTATED 1000ML 1,000 ML IV SCH; -MORPHINE SULFATE 2 MG/ML INJ. IVP PRN; -PROCHLORPERAZINE 10 MG/2 ML VIAL. IVP PRN; -fentaNYL PF VIAL 100 MCG/2 ML VIAL IVP PRN
[2021-07-27] MEDS ORDERED: IV NORMAL SALINE 1000ML BAG 1,000 ML IV ONE (01:30)
[2021-07-27] MEDS ORDERED: ONDANSETRON PF 4 MG/2 ML VIAL. IVP ONE (01:30)
[2021-07-27] MEDS ORDERED: fentaNYL PF VIAL 100 MCG/2 ML VIAL IVP ONE (01:30)
[2021-07-27 02:11] LABS: BASO % 1 % (0-3); EOS # 0.3 x10^3/uL (0.0-0.7); EOS % 6 % (0-3); HEMOGLOBIN 11.3 g/dL (12.0-15.5); LYMPH # 2.5 x10^3/uL (1.0-4.8); LYMPH % 41 % (24-48); MEAN CORPUSCULAR HEMOGLOBIN 27 pg (25-35); MEAN CORPUSCULAR HGB CONC 33 g/dL (31-37); MEAN CORPUSCULAR VOLUME 82 fL (79-100); MONO # 0.4 x10^3/uL (0.0-1.1); MONO % 7 % (0-9); NEUT # 2.8 x10^3/uL (1.8-7.7); NEUT % 45 % (31-73); PLATELET COUNT 228 x10^3/uL (140-400); RED BLOOD COUNT 4.15 x10^6/uL (3.50-5.40); RED CELL DISTRIBUTION WIDTH 18.1 % (11.5-14.5); WHITE BLOOD COUNT 6.1 x10^3/uL (4.0-11.0)
[2021-07-27 02:24] LABS: CALCIUM 8.2 mg/dL (8.5-10.1); CREATININE 1.1 mg/dL (0.6-1.0); GFR 61.5; POTASSIUM 3.6 mmol/L (3.5-5.1)
[2021-07-27 02:31] LABS: ALBUMIN 2.9 g/dL (3.4-5.0); ALBUMIN/GLOBULIN RATIO 0.7 (1.0-1.7); TOTAL BILIRUBIN 0.4 mg/dL (0.2-1.0); TOTAL PROTEIN 7.1 g/dL (6.4-8.2)
[2021-07-27] MEDS ORDERED: CONTRAST GIVEN. MC PRN (02:45)
[2021-07-27] MEDS ORDERED: IOHEXOL 300 MG/ML 100ML VIAL. IV ONE (03:00)
--- NOTE | 2021-07-27 03:23 | RAD ---
CT ABDOMEN+PELVIS W History: Reason: LLQ pain, L flank pain, omni 300, 75 ml iv / Spl. Instructions: / History: Technique: After the administration of intravenous contrast, CT imaging was performed of the abdomen and pelvis. Multiplanar images are reviewed. Exposure: One or more of the following individualized dose reduction techniques were utilized for thi s examination: 1. Automated exposure control 2. Adjustment of the mA and/or kV according to patient size 3. Use of iterative reconstruction technique. Comparison: January 28, 2020 Findings: Lower chest: Elevation the right hemidiaphragm. Adjacent right lower lobe linear atelectasis. Abdomen and pelvis: Hepatic steatosis. The spleen, adrenal glands, and pancreas are unremarkable. Con tracted gallbladder. No biliary ductal dilatation. No hydronephrosis. Normal appearance of the urinar y bladder. Normal appendix. No evidence of bowel obstruction. No pathologic lymphadenopathy. No ascites. Prior h ysterectomy. Mild atheromatous plaque within the nonaneurysmal abdominal aorta. Bones: Posterior stabilization and interbody fusion L3-L4. Spinal stimulator noted. Multilevel lumbar spinal stenosis most prominent L4-5 and L5-S1. Impression: 1. No acute abdominal or pelvic pathology. 2. Hepatic steatosis. Electronically signed by: Gilbert Cazares DO (07/27/2021 3:20 AM) [facility]
--- NOTE | 2021-07-27 04:13 | PHYS DOC ---
Past Medical History Past Medical History: Diabetes-Type II, Hypertension, Other Additional Past Medical Histor: CHRONIC BACK PAIN, BACK NERVE STIMULATOR, HEART MURMUR Past Surgical History: Hysterectomy, Other Additional Past Surgical Histo: ABDOMINAL SURGERY ABSCESS, Left ankle surgery Smoking Status: Current Some Day Smoker Alcohol Use: Rarely Drug Use: None General Adult EDM: Chief Complaint: ABDOMINAL PAIN HPI: HPI: Patient is a 61 year old female brought in by EMS for left-sided abdominal pain. She admits that she has had this abdominal pain for quite some time. She has been seen at other facilities, as recently as 1 week ago at [facility] emergency department. She had labs and a CT at that time, and she reports that everything was found to be normal. No changes today, other than continued pain. She denies vomiting, does report some mild nausea. She denies fevers or chills. She denies constipation, diarrhea, melena, hematochezia. She denies urinary symptoms. She has chronic back pain for which she takes opioid medication, and she wears fentanyl patches continuously. She was given IV fentanyl in route by EMS. She has seen her physician about this, and she reports that she does not believe she has been given any specific answers as to the cause of her abdominal pain. Review of Systems: Review of Systems: Constitutional: Denies fever or chills. [] Eyes: Denies change in visual acuity. [] HENT: Denies nasal congestion or sore throat. [] Respiratory: Denies cough or shortness of breath. [] Cardiovascular: Denies chest pain or edema. [] GI: Abdominal pain, nausea, no diarrhea or constipation. No vomiting. No melena or hematochezia. : Denies urinary symptoms. Musculoskeletal: Chronic back pain, unchanged today. Integument: Denies rash. [] Neurologic: Denies headache, focal weakness or sensory changes. [] Psychiatric: Anxiety issues, unchanged today. Heart Score: C/O Chest Pain: No Risk Factors: Risk Factors: DM, Current or recent (<one month) smoker, HTN, HLP, family history of CAD, obesity. Risk Scores: Score 0 - 3: 2.5% MACE over next 6 weeks - Discharge Home Score 4 - 6: 20.3% MACE over next 6 weeks - Admit for Clinical Observation Score 7 - 10: 72.7% MACE over next 6 weeks - Early Invasive Strategies Current Medications: Current Medications Medications (Trade) Dose Ordered Sig/Gary Start Time Stop Time Status Last Admin Dose Admin Fentanyl Citrate (Fentanyl 2ml Vial) 50 mcg 1X ONCE 07/27/21 01:30 07/27/21 01:31 DC 07/27/21 02:01 50 MCG Info (CONTRAST GIVEN -- Rx MONITORING) 1 each PRN DAILY PRN 07/27/21 02:45 07/29/21 02:44 Iohexol (Omnipaque 300 Mg/ml) 75 ml 1X ONCE 07/27/21 03:00 07/27/21 03:01 DC 07/27/21 03:09 75 ML Ondansetron HCl (Zofran) 4 mg 1X ONCE 07/27/21 01:30 07/27/21 01:31 DC 07/27/21 02:01 4 MG Sodium Chloride 1,000 ml @ 1,000 mls/hr 1X ONCE 07/27/21 01:30 07/27/21 02:29 DC 07/27/21 01:59 1,000 MLS/HR Allergies: Allergies: Allergies Coded Allergies Type Severity Reaction Last Updated Verified Cephalexin Monohydrate Allergy Intermediate Itching 05/20/21 Yes Sulfa (Sulfonamide Antibiotics) Allergy Intermediate 05/20/21 Yes azithromycin Allergy Intermediate Hives 05/20/21 Yes codeine Allergy Intermediate Hives 05/20/21 Yes morphine Allergy Intermediate Hives 05/20/21 Yes aspirin Adverse Reaction Intermediate Nausea 05/20/21 Yes Uncoded Allergies Type Severity Reaction Last Updated Verified NO MRIS NONCONDITIONAL SPINAL STIM Allergy Severe 08/12/17 Physical Exam: PE: Constitutional: Well developed, well nourished, no acute distress, non-toxic appearance. [] HENT: Normocephalic, atraumatic, bilateral external ears normal, because membranes are moist Eyes: Clear and nonicteric Neck: Normal range of motion, no tenderness, supple, no stridor. [] Cardiovascular:Heart rate regular rhythm, no murmur, +2 radial and dorsalis pedis pulses bilaterally. [] Lungs & Thorax: Bilateral breath sounds clear to auscultation [] Abdomen: Abdomen is obese, soft, nondistended, normal bowel sounds. Minimal left lower quadrant and left mid abdomen tenderness. No voluntary or involuntary guarding. No rebound tenderness. No pulsatile mass. No palpable organomegaly. No audible bruit. No CVA tenderness. No abdominal or flank ecchymoses. No abdominal or flank rash. No CVA tenderness. Skin: Warm, dry, no erythema, no rash. [] Back: No tenderness, no CVA tenderness. [] Extremities: No tenderness, no cyanosis, no clubbing, ROM intact, no edema. [] Neurologic: Alert and oriented X 3, normal motor function, normal sensory function, no focal deficits noted. [] Psychologic: Anxious. She is cooperative. Current Patient Data: Labs: Laboratory Tests Test 07/27/21 01:55 White Blood Count 6.1 x10^3/uL (4.0-11.0) Red Blood Count 4.15 x10^6/uL (3.50-5.40) Hemoglobin 11.3 g/dL (12.0-15.5) L Hematocrit 34.0 % (36.0-47.0) L Mean Corpuscular Volume 82 fL (79-100) Mean Corpuscular Hemoglobin 27 pg (25-35) Mean Corpuscular Hemoglobin Concent 33 g/dL (31-37) Red Cell Distribution Width 18.1 % (11.5-14.5) H Platelet Count 228 x10^3/uL (140-400) Neutrophils (%) (Auto) 45 % (31-73) Lymphocytes (%) (Auto) 41 % (24-48) Monocytes (%) (Auto) 7 % (0-9) Eosinophils (%) (Auto) 6 % (0-3) H Basophils (%) (Auto) 1 % (0-3) Neutrophils # (Auto) 2.8 x10^3/uL (1.8-7.7) Lymphocytes # (Auto) 2.5 x10^3/uL (1.0-4.8) Monocytes # (Auto) 0.4 x10^3/uL (0.0-1.1) Eosinophils # (Auto) 0.3 x10^3/uL (0.0-0.7) Basophils # (Auto) 0.0 x10^3/uL (0.0-0.2) Sodium Level 143 mmol/L (136-145) Potassium Level 3.6 mmol/L (3.5-5.1) Chloride Level 104 mmol/L (98-107) Carbon Dioxide Level 28 mmol/L (21-32) Anion Gap 11 (6-14) Blood Urea Nitrogen 8 mg/dL (7-20) Creatinine 1.1 mg/dL (0.6-1.0) H Estimated GFR (Cockcroft-Gault) 61.5 BUN/Creatinine Ratio 7 (6-20) Glucose Level 89 mg/dL (70-99) Calcium Level 8.2 mg/dL (8.5-10.1) L Total Bilirubin 0.4 mg/dL (0.2-1.0) Aspartate Amino Transferase (AST) 18 U/L (15-37) Alanine Aminotransferase (ALT) 28 U/L (14-59) Alkaline Phosphatase 133 U/L (46-116) H Total Protein 7.1 g/dL (6.4-8.2) Albumin 2.9 g/dL (3.4-5.0) L Albumin/Globulin Ratio 0.7 (1.0-1.7) L Lipase 42 U/L (73-393) L Laboratory Tests 07/27/21 01:55 Laboratory Tests 07/27/21 01:55 Vital Signs: Vital Signs Date Time Temp Pulse Resp B/P (MAP) Pulse Ox O2 Delivery O2 Flow Rate FiO2 07/27/21 03:44 94 17 106/57 (73) 97 Room Air 07/27/21 00:10 98.3 98.3 EKG: EKG: [] Radiology/Procedures: Radiology/Procedures: IMAGING REPORT Signed PATIENT: REGINO LUCIO ACCOUNT: [id number] : 1960 LOCATION: ER AGE: 61 SEX: F EXAM STATUS: REG ER ORD. PHYSICIAN: SCOT BATES DO REASON: LLQ pain, L flank pain, omni 300, 75 ml iv PROCEDURE: CT ABD PELV W/ IV CONTRST ONLY CT ABDOMEN+PELVIS W History: Reason: LLQ pain, L flank pain, omni 300, 75 ml iv / Spl. Instructions: / History: Technique: After the administration of intravenous contrast, CT imaging was performed of the abdomen and pelvis. Multiplanar images are reviewed. Exposure: One or more of the following individualized dose reduction techniques were utilized for this examination: 1. Automated exposure control 2. Adjustment of the mA and/or kV according to patient size 3. Use of iterative reconstruction technique. Comparison: January 28, 2020 Findings: Lower chest: Elevation the right hemidiaphragm. Adjacent right lower lobe linear atelectasis. Abdomen and pelvis: Hepatic steatosis. The spleen, adrenal glands, and pancreas are unremarkable. Contracted gallbladder. No biliary ductal dilatation. No hyd ronephrosis. Normal appearance of the urinary bladder. Normal appendix. No evidence of bowel obstruction. No pathologic lymphadenopathy. No ascites. Prior hysterectomy. Mild atheromatous plaque within the nonaneurysmal abdominal aorta. Bones: Posterior stabilization and interbody fusion L3-L4. Spinal stimulator noted. Multilevel lumbar spinal stenosis most prominent L4-5 and L5-S1. Impression: 1. No acute abdominal or pelvic pathology. 2. Hepatic steatosis. Electronically signed by: Gilbert Cazares DO (07/27/2021 3:20 AM) [facility] DICTATED and SIGNED BY: GILBERT CAAZRES DO DATE: 07/27/21 [id number] 0 Course & Med Decision Making: Course & Med Decision Making Pertinent Labs and Imaging studies reviewed. (See chart for details) Patient is given IV fluids, IV Zofran and IV fentanyl. She is resting very comfortably. She does not appear to be in any distress. She has a benign, nonsurgical nominal exam. Imaging studies and labs are unremarkable. There does not appear to be indication for admission or further invasive exams. I have discussed all of the findings, differential diagnosis and plan of care with the patient. I recommend that she follow-up with her primary care physician. She may want to discuss outpatient GI consultation as well. No opioid medications will be prescribed for discharge. Return precautions are given. She verbalized understanding. Kedar Disclaimer: Kedar Disclaimer: This electronic medical record was generated, in whole or in part, using a voice recognition dictation system. Departure Departure Impression: Primary Impression: Left sided abdominal pain Additional Impression: Hepatic steatosis Disposition: HOME / SELF CARE / HOMELESS Condition: STABLE Referrals: JIL VAZ APRN (PCP) Patient Instructions: Abdominal Pain, Abdominal Pain (Nonspecific) Additional Instructions: Return for fever of 100.4 or higher, for acute changes in pain, uncontrolled vomiting, dehydration, or other concerns. Your work-up here in the emergency department has been unremarkable for acute life-threatening or surgical problem. Please discuss your chronic pain with your primary care physician and pain management services. SCOT BATES DO Jul 27, 2021 04:13
[2021-07-27 05:14] LABS: BILIRUBIN,URINE NEGATIVE (NEG); CLARITY,URINE CLEAR; COLOR,URINE YELLOW; NITRITE,URINE NEGATIVE (NEG); PH,URINE 5.5 (<5.0-8.0); PROTEIN,URINE NEGATIVE (NEG-TRACE); UROBILINOGEN,URINE 0.2 mg/dL (0.2 mg/dL)
[2021-07-27 05:19] LABS: BACTERIA,URINE FEW /HPF (0-FEW); RBC,URINE 0 /HPF (0-2)
[2021-07-27 07:40] VITALS: BP 119/76
== END 2021-07-27 07:49 | disposition home or self-care (01) ==
LOC: ER 00:07
DX: K76.0 Fatty (change of) liver, not elsewhere classified (principal); R10.32 Left lower quadrant pain; E11.9 Type 2 diabetes mellitus without complications; I10 Essential (primary) hypertension; G89.29 Other chronic pain; F17.200 Nicotine dependence, unspecified, uncomplicated; Z88.1 Allergy status to other antibiotic agents; Z88.2 Allergy status to sulfonamides; Z88.5 Allergy status to narcotic agent; Z88.6 Allergy status to analgesic agent
CPT/HCPCS: 36415; 74177; 80053; 81001; 83690; 85025; 96361; 96374; 96375; 99285; J2405; J3010; J7030; Q9967

== ENCOUNTER → 2021-08-07 | Outpatient (CLI) | payer MEDICARE ==
[2021-07-27 07:40] VITALS: BP 119/76
[~2021-08-07] MED LIST changes: +CYCL10TA19 PO; -CYCL10TA2 PO
--- NOTE | 2021-08-07 13:15 | EEG ---
DATE OF SERVICE: 08/07/2021 ELECTROENCEPHALOGRAM EEG NUMBER: [id number]. OBJECTIVE: The patient is a 61-year-old female with staring episodes, dizziness, room spinning, history of migraines. DESCRIPTION: This is a digital study. Electrodes are placed according to the international 10-20 system. Bipolar and referential montages are available. INTERPRETATION: Waking background consists of 9-10 Hz, 50-100 microvolt activity, symmetrically distributed over parietooccipital regions and reactive to eye opening. There are intermittent sharp waves with phase reversal at electrode T5 as well as paroxysmal delta activity lasting less than a second. Stage 1 sleep is achieved with normal electroencephalogram patterns. Hyperventilation and intermittent photic stimulation are noncontributory. IMPRESSION: This electroencephalogram with the patient awake and asleep is abnormal because of an epileptic disturbance of cerebral activity arising from the left temporal lobe. Findings are consistent with epilepsy from this region. Thank you for letting us help with the patient's care. THERESA/RAMON DR: Rudy TID: [id number] CC: ENOC Minor, Etelvina Garsia APRN
== END ==
LOC: RT 09:05
PROVIDERS: ATTEND Nurse Practitioner Family
DX: R40.4 Transient alteration of awareness (principal); R42 Dizziness and giddiness
CPT/HCPCS: 95816

== ENCOUNTER → 2021-09-08 | Outpatient (CLI) | payer MEDICARE ==
--- NOTE | 2021-09-08 09:08 | RAD ---
INDICATION: Reason: NEW ONSET SEIZURE / Spl. Instructions: / History: COMPARISON: July 2017 TECHNIQUE: Axial CT images obtained through the head without intravenous contrast. One or more of the following individualized dose reduction techniques were utilized for this examinat ion: 1. Automated exposure control; 2. Adjustment of the mA and/or kV according to patient size; 3 . Use of iterative reconstruction technique. FINDINGS: No intracranial hemorrhage. No significant midline shift. Ventricles and sulci are globally prominent. Scattered foci of low attenuation within the white matter. IMPRESSION: * No acute intracranial hemorrhage. * Scattered regions of low attenuation within the white matter. Non-specific in nature but a common finding and frequently secondary to small vessel ischemic disease. Electronically signed by: Travon Chaney MD (09/08/2021 9:06 AM) [id number]
== END ==
LOC: CT 09:22
PROVIDERS: ATTEND Nurse Practitioner Family
DX: R56.9 Unspecified convulsions (principal)
CPT/HCPCS: 70450

== ENCOUNTER → 2021-11-03 | Outpatient (CLI) | payer MEDICARE ==
[~2021-11-03] MED LIST changes: +BUPIVACAINE MPF 0.25% 10 ML VIAL. ONE; +IOHEXOL 180 MG/ML 10 ML VIAL. ONE; +methylPREDNISolone ACETATE 80 MG/ML VIAL. ONE
--- NOTE | 2021-11-03 09:08 | PDOC ---
Progress Note - Pain Clinic Date of Service: DOS: DATE: 11/03/21 TIME: 09:02 Diagnosis: Dx: Bilateral sacroiliitis Lumbar to colopathy with lumbar degenerative disease and lumbar postlaminectomy syndrome with spinal cord stimulator with paddle lead Cervical radiculopathy with cervical degenerative disc disease Myofascial pain Bilateral lateral shoulder joint pain with osteoarthritis Left elbow epicondylitis History or Present Illness: HPI: 61-year-old female returns last seen 1 year ago with pain low back also with spinal cord stimulator status post multiple procedures as well as spinal cord stimulator with paddle lead placed also bilateral shoulder injections sacroiliac joint injections cervical epidural steroid injections with good results patient reports her most recent sacroiliac joint injections which was October of last year was helpful as well with about 75% improvement with the last injection did not last as long patient has been putting off getting it treated recently is more more painful on the left side than the right but present bilaterally in the low back and in the posterior hips patient reports it does laterally radiate on the left side into the anterior aspect of the thigh but mostly just with walking and standing patient reports is tender bilaterally with sitting for prolonged periods getting up from a seated position walking standing also awakens her from sleep about once every 4 hours or so. Patient reports no loss of motor function no bowel or bladder incontinence rates her pain is a 10 on scale 10 is worst 9 on average 6 its least and is a 6 today. Patient is recent been diagnosed with a seizure disorder and is taking Keppra, which she feels has been helpful thus far. Patient did have a new x-rays of the thoracic spine which we reviewed with her today as well showing no acute changes and good placement of spinal cord stimulator paddle lead. Physical Exam: VS: Blood pressure is 131/86 pulse 114 respirations 18 temperature 98.0 F height is 5 feet 5 inches weight is 233 pounds PE: PHYSICAL EXAMINATION: GENERAL: The patient is awake, alert, oriented, appropriate, very pleasant in demeanor HEENT: Shows normocephalic, atraumatic. Extraocular movements are intact and symmetrical. Oral cavity: Mucous membranes moist and pink. Dentition is intact. NECK: Shows anterior throat supple without palpable lymphadenopathy noted. Swallow reflex symmetrical. CHEST: Shows normal on inspection. Breath sounds are clear bilaterally,, no rales or rhonchi. HEART: Shows S1, S2 clear. No murmurs auscultated. ABDOMEN: Soft, nontender, nondistended. No palpable organomegaly is noted. No rebound or guarding demonstrated. BACK: Shows spine grossly in the midline. Normal-appearing cervical lordotic curvature. There is slightly increased thoracic kyphosis, some minor flattening of the lumbar lordotic curvature. Lumbar paraspinous muscles show symmetrical on inspection, on palpation shows some moderate tenderness diffusely throughout the upper, middle and lower distribution of the paraspinous muscles, but without specific trigger points, without radiation of pain. The patient has good rotational motion of the lumbar spine, both laterally as well as extension and flexion with some moderate pain with extension but not with forward flexion and right and lateral rotation. Patient shows significant tenderness over the posterior superior iliac spines bilaterally worse on the left than the right but present bilaterally with very tender palpation and some mild radiation on the left side into the posterior gluteus inferiorly but no radiation on the right side. EXTREMITIES: Lower extremities show deep tendon reflexes 1+ in the patellar and tendo calcaneus tendons. Motor exam is 5 on a scale of 5 with right dorsiflexion, extension, quadriceps and hamstring flexion and 5/5 on the left. Peripheral pulses are 1+ posterior tibial. No peripheral edema is noted sherri aterally. Lower extremities are warm and dry to touch, equal in color and appearance. SKIN: Shows warm and dry, good turgor. No edema. No sores, rashes or bruising throughout. Procedure: Procedure: Options were discussed with patient. Patient's chart was reviewed as her current medication regimen updated current review of systems updated today as well. We will proceed with bilateral sacroiliac joint injections today with fluoroscopic guidance. Risks are discussed including but not limited bleeding infection possibility of intravascular injection sequelae spread of local anesthetic numbness side effects steroid medication and poor results regarding pain control. Patient understands wished to proceed patient will return to clinic in approximately 2 weeks for follow-up, was counseled as to return appointment, activity level, and side effects to be aware of. Medication Injected: Med Injected: Under sterile prep and drape patient in prone position using C-arm fluoroscopic guidance both AP and lateral views the sacroiliac joints were visualized and the right sacroiliac joint was then identified and locally anesthetized overlying the superior middle portion of the sacroiliac joint with 1% lidocaine. Using a 22-gauge stylette and quinkie spinal needle, the joint was entered under direct visual guidance with C-arm fluoroscopy. This was confirmed with AP and lateral views stylette was removed contrast was injected 1.5 cc with good spread data filed in the sacroiliac joint itself. This was repeated for the left side and the same technique and with similar spread of contrast within the left sacroiliac joint. At this time solution containing 2 cc 0.25% bupivacaine and 40 mg Depo-Medrol each side was injected. [place] were removed, sterile bandage was applied, patient tolerated procedure well had no complications. Condition at Discharge: Condition at Discharge: Condition at discharge stable, patient tolerated procedure well and had no complications. TROY TERAN MD Nov 03, 2021 09:08
--- NOTE | 2021-11-03 09:09 | PDOC4 ---
Procedure Note: ICD 10 Code: ICD 10 Code: M46.1 Procedure Note: Patient was consented for bilateral sacroiliac joint injections with fluoroscopic guidance. Risk discussed including but not limited to bleeding infection possibility of intravascular injection sequelae spread of local anesthetic and steroid medication exposure fluoroscopy and poor results regarding pain control. Patient understands wished to proceed. Under sterile prep and drape patient in prone position using C-arm fluoroscopic guidance both AP and lateral views the sacroiliac joints were visualized and the right sacroiliac joint was then identified and locally anesthetized overlying the superior middle portion of the sacroiliac joint with 1% lidocaine. Using a 22-gauge stylette and quinkie spinal needle, the joint was entered under direct visual guidance with C-arm fluoroscopy. This was confirmed with AP and lateral views stylette was removed contrast was injected 1.5 cc with good spread data filed in the sacroiliac joint itself. This was repeated for the left side and the same technique and with similar spread of contrast within the left sacroiliac joint. At this time solution containing 2 cc 0.25% bupivacaine and 40 mg Depo-Medrol each side was injected. [place] were removed, sterile bandage was applied, patient tolerated procedure well had no complications. TROY TERAN MD Nov 03, 2021 09:09
== END | disposition home or self-care (01) ==
LOC: PNCL 08:01
PROVIDERS: ATTEND Anesthesiology
DX: M46.1 Sacroiliitis, not elsewhere classified (principal); M51.16 Intervertebral disc disorders with radiculopathy, lumbar region; M50.10 Cervical disc disorder with radiculopathy, unspecified cervical region; M96.1 Postlaminectomy syndrome, not elsewhere classified; M79.18 Myalgia, other site; M19.011 Primary osteoarthritis, right shoulder; M19.012 Primary osteoarthritis, left shoulder; M77.12 Lateral epicondylitis, left elbow; M19.022 Primary osteoarthritis, left elbow; I10 Essential (primary) hypertension; E78.00 Pure hypercholesterolemia, unspecified; E66.9 Obesity, unspecified; K21.9 Gastro-esophageal reflux disease without esophagitis; E11.9 Type 2 diabetes mellitus without complications; E03.9 Hypothyroidism, unspecified; F17.210 Nicotine dependence, cigarettes, uncomplicated; Z90.710 Acquired absence of both cervix and uterus; Z98.51 Tubal ligation status; Z98.890 Other specified postprocedural states; Z79.84 Long term (current) use of oral hypoglycemic drugs; Z79.899 Other long term (current) drug therapy; Z88.2 Allergy status to sulfonamides; Z88.1 Allergy status to other antibiotic agents; Z88.5 Allergy status to narcotic agent; Z88.8 Allergy status to other drugs, medicaments and biological substances
CPT/HCPCS: G0260; J1040; J3490; Q9965; 27096

== ENCOUNTER → 2022-02-10 | Outpatient (CLI) | payer MEDICARE ==
[~2022-02-10] MED LIST changes: -BUPIVACAINE MPF 0.25% 10 ML VIAL. ONE; +CONTRAST GIVEN. MC PRN; +IOHEXOL 180 MG/ML 10 ML VIAL. EPID ONE; -IOHEXOL 180 MG/ML 10 ML VIAL. ONE; +LIDOCAINE WITH 8.4% SOD BICARB 3 ML DISP.SYRIN. INJ ONE; +LIDOCAINE WITH 8.4% SOD BICARB 3 ML DISP.SYRIN. ONE; -methylPREDNISolone ACETATE 80 MG/ML VIAL. ONE
--- NOTE | 2022-02-10 10:44 | RAD ---
XR MYELOGRAM LUMBAR History:Reason: LUMBAR RADICULOPATHY / Spl. Instructions: 1.1 minutes fluoro time/ 15cc omnipaque 180 /3 cc buffered lidocaine / History: Technique: Patient was informed of the risks of the procedure to include pain, infection, bleeding an d allergic reaction to the contrast. All questions were answered. Patient signed a written consent fo for a lumbar myelogram. The patient was placed in a prone oblique position on the flouroscopy table. External site of the low er back was prepped and draped in the usual sterile fashion. Betadine was utilized for cleansing solu tion. 1% lidocaine was utilized for local anesthesia at the anticipated site of puncture lumbar spin e L2. A 22-gauge spinal needle was advanced towards the thecal sac under intermittent fluoroscopic gu idance. Approximately 15 cc of Isovue 180 were then injected during fluoroscopic visualization. The needles were removed. Hemostasis was obtained and sterile dressing was applied. Fluoroscopic spot images were acquired of the lumbar spine. The patient was then transferred to the C T department. There were no immediate complications. Fluoroscopy time: 1.1 minutes Number of fluoroscopic images: 6 Findings: Postoperative changes L4-L5. Multilevel lumbar spondylosis. Impression: 1. Successful lumbar puncture for lumbar myelogram. CT lumbar spine to follow. Electronically signed by: Gilbert Cazares DO (02/10/2022 10:41 AM) [id number]
--- NOTE | 2022-02-10 10:56 | RAD ---
CT LUMBAR SPINE W History:Reason: LUNG RADICULOPATHY. MYELOGRAM / Spl. Instructions: / History: Technique: CT imaging was performed of the lumbar spine after injection for intrathecal contrast. Mul tiplanar reconstruction images are submitted. See lumbar spine myelogram procedure note for further details. Exposure: One or more of the following individualized dose reduction techniques were utilized for thi s examination: 1. Automated exposure control 2. Adjustment of the mA and/or kV according to patient size 3. Use of iterative reconstruction technique. Comparison: July 28, 2018 Findings: Posterior stabilization and intervertebral fusion L3-L4 with lateral mass graft. Right hemilaminectom y L3-L4 and L5-S1. Straightening of the lumbar spine. No acute fracture. Degenerative endplate changes most prominent L5 -S1. T12-L1: No canal or neuroforaminal narrowing. L1-L2: Minimal disc bulge. Mild facet arthropathy. No canal or neuroforaminal narrowing. L2-L3: Small disc bulge. No canal narrowing. Moderate facet arthropathy. Mild bilateral neuroforamin al narrowing. L3-L4: Intervertebral fusion. Right hemilaminectomy. No canal narrowing. No neuroforaminal narrowing . L4-L5: Small disc bulge. Small disc extrusion extending inferiorly. Minimal canal narrowing. Mild chong barticular recess narrowing. Ligament of flavum thickening. Mild to moderate facet arthropathy. Moder ate left and mild right neuroforaminal narrowing. L5-S1: Posterior disc osteophyte complex. Postoperative changes right laminectomy. Decreased right s ubarticular disc extrusion compared to prior. Mild right subarticular recess narrowing with slight ab utment of the descending right S1 nerve root. Overall decreased compared to prior. Moderate bilateral neuroforaminal narrowing. Degenerative findings are overall slightly progressed compared to 2018. Impression: 1. Postoperative changes L3-L4 and L5-S1. 2. Multilevel lumbar spondylosis, slightly progressed compared to 2018 3. L5-S1 right subarticular disc extrusion abutting the descending right S1 nerve root. Overall decr eased compared to prior. 4. Neuroforaminal narrowing most prominent left L4-5 and bilateral L5-S1. Electronically signed by: Gilbert Cazares DO (02/10/2022 10:53 AM) [id number]
== END | disposition home or self-care (01) ==
LOC: RAD 08:56
PROVIDERS: ATTEND Neurological Surgery
DX: M47.26 Other spondylosis with radiculopathy, lumbar region (principal); M48.061 Spinal stenosis, lumbar region without neurogenic claudication; I10 Essential (primary) hypertension; E78.00 Pure hypercholesterolemia, unspecified; E66.9 Obesity, unspecified; K21.9 Gastro-esophageal reflux disease without esophagitis; M19.90 Unspecified osteoarthritis, unspecified site; E03.9 Hypothyroidism, unspecified; E11.9 Type 2 diabetes mellitus without complications; F17.210 Nicotine dependence, cigarettes, uncomplicated; Z98.51 Tubal ligation status; Z98.890 Other specified postprocedural states; Z79.899 Other long term (current) drug therapy; Z72.89 Other problems related to lifestyle; Z88.1 Allergy status to other antibiotic agents; Z88.8 Allergy status to other drugs, medicaments and biological substances
CPT/HCPCS: 62304; 72132; J3490; Q9965

== ENCOUNTER → 2022-03-03 | Outpatient (CLI) | payer MEDICARE ==
[~2022-03-03] MED LIST changes: +BUPIVACAINE MPF 0.25% 10 ML VIAL. ONE; -CONTRAST GIVEN. MC PRN; +DEXAMETHASONE PRES.FREE 10 MG/ML VIAL. ONE; +FAMO40TA4 PO; -IOHEXOL 180 MG/ML 10 ML VIAL. EPID ONE; +IOHEXOL 180 MG/ML 10 ML VIAL. ONE; +LEVE250T4 PO; -LIDOCAINE WITH 8.4% SOD BICARB 3 ML DISP.SYRIN. INJ ONE; -LIDOCAINE WITH 8.4% SOD BICARB 3 ML DISP.SYRIN. ONE
--- NOTE | 2022-03-03 10:36 | PDOC ---
Progress Note - Pain Clinic Date of Service: DOS: DATE: 03/03/22 TIME: 10:32 Diagnosis: Dx: Lumbar and lumbosacral spondylosis, lumbar radiculopathy with lumbar degenerative disc disease post lumbar laminectomy syndrome with spinal cord stimulator Cervical radiculopathy with cervical degenerative disease Myofascial pain Bilateral sacroiliitis Bilateral shoulder joint pain with osteoarthritis Left elbow epicondylitis History or Present Illness: HPI: 61-year-old female returns for follow-up status post bilateral sacroiliac joint injections last seen October [id number] patient reports they helped for 3 weeks but the pain began to return fairly quickly patient has recently seen her neurosurgeon for reevaluation after previous lumbar fusion and is recommending conservative therapies and no further surgical interventions at this time. 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 Patient reports pain in the back is aching and sharp shooting stabbing severe constant aching worse with getting up and down from sitting position to standing getting up out of bed in the morning wakes her from sleep frequently reports is worse with extended standing especially with reaching up above her head with her arms. Patient reports no loss of motor function of bowel or bladder incontinence. Physical Exam: VS: Blood pressure is 154/96 pulse 98 respirations 18 temperature 97.8 was Fahrenheit height 5 feet 5 inches weight is 235 pounds. PE: PHYSICAL EXAMINATION: GENERAL: The patient is awake, alert, oriented, appropriate, very pleasant in demeanor, patient companied by her . HEENT: Shows normocephalic, atraumatic. Extraocular movements are intact and symmetrical. Oral cavity: Mucous membranes moist and pink. Dentition is intact. NECK: Shows anterior throat supple without palpable lymphadenopathy noted. Swallow reflex symmetrical. CHEST: Shows normal on inspection. Breath sounds are clear bilaterally, no rales rhonchi or wheezes auscultated. HEART: Shows S1, S2 clear. No murmurs auscultated. ABDOMEN: Soft, nontender, nondistended. No palpable organomegaly is noted. BACK: Shows spine grossly in the midline. Normal-appearing cervical lordotic curvature. There is slightly increased thoracic kyphosis, some minor flattening of the lumbar lordotic curvature. Lumbar paraspinous muscles show symmetrical on inspection, on palpation shows some moderate tenderness diffusely throughout the upper, middle and lower distribution of the paraspinous muscles, without specific trigger points, without radiation of pain. The patient has good rotational motion of the lumbar spine, both laterally as well as extension and flexion with significant tenderness with extension and axial loading lumbar spine with pain in the right and left low back this is better with forward flexion 45 degrees which is performed fully also right and left lateral rotation past 10 degrees causes some significant pain at each respective side but without radiation. EXTREMITIES: Lower extremities show deep tendon reflexes 1+ in the patellar and tendo calcaneus tendons. Motor exam is 5 on a scale of 5 with right dorsiflexion, extension, quadriceps and hamstring flexion and 5/5 on the left. Peripheral pulses are 1+ posterior tibial. No peripheral edema is noted bilat erally. Lower extremities are warm and dry to touch, equal in color and appearance. SKIN: Shows warm and dry, good turgor. No edema. No sores, rashes or bruising throughout. Procedure: Procedure: Options were discussed with patient. Patient's chart reviewed as her current medication regimen updated current review of systems updated today as well. We will proceed with bilateral L4-5 and L5-S1 facet medial branch blocks today with fluoroscopic guidance. Risks were discussed including but not limited to: Bleeding, infection, possibility of epidural hematoma and subsequent neurological compromise, dural puncture, headaches, spinal cord and/or nerve damage, side effects of steroid medication, and poor results regarding pain control. Patient understands and wished to proceed. Patient return to clinic in approximate 2 weeks for follow-up, was counseled as return appointment, active level, and side effects to be aware of. Medication Injected: Med Injected: Under sterile prep and drape using C-arm fluoroscopic guidance AP and lateral and oblique views, bilateral L4-5 and L5-S1 facet joint MB's injections were performed, using 22-gauge quinke needles with stylette's x4,, medications injected: 20 mg dexamethasone +4 cc 0.25% bupivacaine +2 cc contrast. Condition at discharge is stable, patient tolerated the procedure well and no complications. Condition at Discharge: Condition at Discharge: Condition at discharge is stable, patient Efrain the procedure well and had no complications. TROY TERAN MD March 03, 2022 10:36
--- NOTE | 2022-03-03 10:37 | PDOC4 ---
Procedure Note: ICD 10 Code: ICD 10 Code: M4 7.816 M4 7.817 Procedure Note: Patient was consented for bilateral facet medial branch blocks L4-5 and L5-S1 with fluoroscopic guidance. Risks were discussed including but not limited to: Bleeding, infection, possibility of epidural hematoma and subsequent neurological compromise, dural puncture, headaches, spinal cord and/or nerve damage, side effects of steroid medication, and poor results regarding pain control. Patient understands and wished to proceed. Under sterile prep and drape using C-arm fluoroscopic guidance AP and lateral and oblique views, bilateral L4-5 and L5-S1 facet joint MB's injections were performed, using 22-gauge quinke needles with stylette's x4,, medications injected: 20 mg dexamethasone +4 cc 0.25% bupivacaine +2 cc contrast. Condition at discharge is stable, patient tolerated the procedure well and no complications. TROY TERAN MD March 03, 2022 10:37
== END | disposition home or self-care (01) ==
LOC: PNCL 09:16
PROVIDERS: ATTEND Anesthesiology
DX: M47.26 Other spondylosis with radiculopathy, lumbar region (principal); M51.16 Intervertebral disc disorders with radiculopathy, lumbar region; M47.816 Spondylosis without myelopathy or radiculopathy, lumbar region; M96.1 Postlaminectomy syndrome, not elsewhere classified; M50.10 Cervical disc disorder with radiculopathy, unspecified cervical region; M46.1 Sacroiliitis, not elsewhere classified; M79.18 Myalgia, other site; M19.012 Primary osteoarthritis, left shoulder; M19.011 Primary osteoarthritis, right shoulder; M77.12 Lateral epicondylitis, left elbow; I10 Essential (primary) hypertension; E78.00 Pure hypercholesterolemia, unspecified; K21.9 Gastro-esophageal reflux disease without esophagitis; E03.9 Hypothyroidism, unspecified; E11.9 Type 2 diabetes mellitus without complications; E66.9 Obesity, unspecified; F17.210 Nicotine dependence, cigarettes, uncomplicated; Z79.84 Long term (current) use of oral hypoglycemic drugs; Z79.899 Other long term (current) drug therapy; Z98.890 Other specified postprocedural states; Z88.0 Allergy status to penicillin; Z88.5 Allergy status to narcotic agent; Z88.8 Allergy status to other drugs, medicaments and biological substances; Z88.1 Allergy status to other antibiotic agents; Z88.2 Allergy status to sulfonamides; Z88.6 Allergy status to analgesic agent
CPT/HCPCS: 64493; 64494; J1100; J3490; Q9965

== ENCOUNTER → 2022-03-17 | Outpatient (CLI) | payer MEDICARE ==
--- NOTE | 2022-03-17 09:55 | PDOC ---
Progress Note - Pain Clinic Date of Service: DOS: DATE: 03/17/22 TIME: 09:52 Diagnosis: Dx: Lumbar and lumbosacral spondylosis Post lumbar laminectomy syndrome with spinal cord stimulator, paddle lead Cervical radiculopathy cervical degenerative disease Bilateral shoulder joint pain with osteoarthritis Bilateral sacroiliitis History or Present Illness: HPI: 62-year-old female returns for follow-up status post bilateral L4-5 and L5-S1 facet medial branch blocks, patient reports about 90% improvement still helping over the past 2 weeks but for the first week was 90% or better patient reports her pain is returning across the low back right slightly worse than left but not radiating to the lower extremities patient report is worse with walking standing change positions sitting for prolonged periods greater than about 40 minutes patient rates her pain as a 5 on a scale 10 is worse over the past week 3 on average 2 to [place] and is a 3 today patient reports still wakes her from sleep about once a night but initially do much better with distance walking and household activities travel with greater ease and comfort and sleeping better patient reports she feels she "overdid it" with activity as she was feeling better but still pain is improved overall. Patient scribes pain is sharp and constant in the low back itself without radiation to the lower extremities. Patient reports no bowel or bladder incontinence no motor loss. Physical Exam: VS: Blood pressure is 120/73 pulse 99 respirations 18 temperature 98.5 F weight is 233 pounds. PE: PHYSICAL EXAMINATION: GENERAL: The patient is awake, alert, oriented, appropriate, very pleasant in demeanor HEENT: Shows normocephalic, atraumatic. Extraocular movements are intact and symmetrical. Oral cavity: Mucous membranes moist and pink. NECK: Shows anterior throat supple without palpable lymphadenopathy noted. Swallow reflex symmetrical. CHEST: Shows normal on inspection. Breath sounds are clear bilaterally, no rales or rhonchi auscultated. HEART: Shows S1, S2 clear. No murmurs auscultated. ABDOMEN: Soft, nontender, nondistended. No palpable organomegaly is noted. BACK: Shows spine grossly in the midline. Normal-appearing cervical lordotic curvature. There is slightly increased thoracic kyphosis, some minor flattening of the lumbar lordotic curvature. Lumbar paraspinous muscles show symmetrical on inspection, on palpation shows some moderate tenderness diffusely throughout the upper, middle and lower distribution of the paraspinous musculature without specific trigger points, without radiation of pain. The patient has good rotational motion of the lumbar spine, both laterally as well as extension and flexion with moderate tenderness with right left lateral rotation greater than 10 degrees with significant tenderness with extension of the lumbar spine and axial loading at greater than 10 degrees extension better with forward flexion at 45 degrees without significant pain reported. EXTREMITIES: Lower extremities show deep tendon reflexes 1+ in the patellar and tendo calcaneus tendons. Motor exam is 5 on a scale of 5 with right dorsiflexion, extension, quadriceps and hamstring flexion and 5/5 on the left. Peripheral pulses are 1+ posterior tibial. No peripheral edema is noted bila terally. Lower extremities are warm and dry to touch, equal in color and appearance. SKIN: Shows warm and dry, good turgor. No edema. No sores, rashes or bruising throughout. Procedure: Procedure: Options discussed with the patient. Patient chart was reviewed as her current medication regimen updated current review of systems updated today as well. We will proceed with bilateral lumbar L4-5 and L5-S1 facet medial branch blocks with fluoroscopic guidance. Risks were discussed including but not limited to: Bleeding, infection, possibility of epidural hematoma and subsequent neurological compromise, dural puncture, headaches, spinal cord and/or nerve damage, side effects of steroid medication, and poor results regarding pain control. Patient understands and wished to proceed. We did discuss the possibility of radiofrequency ablation if patient has significant improvement after the repeat diagnostic blocks today. Patient will return to clinic in approximately 2 weeks for follow-up, was counseled as to return appointment, activity level, and side effects to be aware of. Medication Injected: Med Injected: Under sterile prep and drape using C-arm fluoroscopic guidance AP and lateral and oblique views, bilateral L4-5 and L5-S1 facet joint MB's injections were performed, using 22-gauge quinke needles with stylette's x4,, medications injected: 20 mg dexamethasone +4 cc 0.25% bupivacaine +2 cc contrast. Condition at discharge is stable, patient tolerated the procedure well and no complications. Condition at Discharge: Condition at Discharge: Condition at discharge stable, patient tolerated the procedure well and had no complications. TROY TERAN MD March 17, 2022 09:55
--- NOTE | 2022-03-17 09:56 | PDOC4 ---
Procedure Note: ICD 10 Code: ICD 10 Code: M4 7.816 M4 7.817 Procedure Note: Patient was consented for bilateral L4-5 and L5-S1 facet medial branch blocks with fluoroscopic guidance. Risks were discussed including but not limited to: Bleeding, infection, possibility of epidural hematoma and subsequent neurological compromise, dural puncture, headaches, spinal cord and/or nerve damage, side effects of steroid medication, and poor results regarding pain control. Patient understands and wished to proceed. Under sterile prep and drape using C-arm fluoroscopic guidance AP and lateral and oblique views, bilateral L4-5 and L5-S1 facet joint MB's injections were performed, using 22-gauge quinke needles with stylette's x4,, medications injected: 20 mg dexamethasone +4 cc 0.25% bupivacaine +2 cc contrast. Condition at discharge is stable, patient tolerated the procedure well and no complications. TROY TERAN MD March 17, 2022 09:56
== END | disposition home or self-care (01) ==
LOC: PNCL 08:45
PROVIDERS: ATTEND Anesthesiology
DX: M47.816 Spondylosis without myelopathy or radiculopathy, lumbar region (principal); M47.817 Spondylosis without myelopathy or radiculopathy, lumbosacral region; M96.1 Postlaminectomy syndrome, not elsewhere classified; M50.10 Cervical disc disorder with radiculopathy, unspecified cervical region; M19.011 Primary osteoarthritis, right shoulder; M19.012 Primary osteoarthritis, left shoulder; M46.1 Sacroiliitis, not elsewhere classified; I10 Essential (primary) hypertension; E66.9 Obesity, unspecified; E78.00 Pure hypercholesterolemia, unspecified; E11.9 Type 2 diabetes mellitus without complications; E03.9 Hypothyroidism, unspecified; K21.9 Gastro-esophageal reflux disease without esophagitis; F17.210 Nicotine dependence, cigarettes, uncomplicated; Z98.51 Tubal ligation status; Z90.710 Acquired absence of both cervix and uterus; Z98.890 Other specified postprocedural states; Z79.84 Long term (current) use of oral hypoglycemic drugs; Z79.899 Other long term (current) drug therapy; Z88.1 Allergy status to other antibiotic agents; Z88.2 Allergy status to sulfonamides; Z88.5 Allergy status to narcotic agent; Z88.8 Allergy status to other drugs, medicaments and biological substances
CPT/HCPCS: 64493; 64494; J1100; J3490; Q9965